=== PATIENT | male | born 1945 | race Caucasian/White ===

== ENCOUNTER 2016-05-10 09:38 | Outpatient (CLI) | payer MEDICARE, BC | END 2016-05-10 09:39 | disposition home or self-care (01) | DX: I50.9 Heart failure, unspecified (principal); I48.91 Unspecified atrial fibrillation ==

== ENCOUNTER 2016-05-25 09:20 | Outpatient (CLI) | payer MEDICARE, BC | END 2016-05-25 09:21 | disposition home or self-care (01) | DX: I50.9 Heart failure, unspecified (principal); I48.91 Unspecified atrial fibrillation ==

== ENCOUNTER 2016-06-08 09:27 | Outpatient (CLI) | payer MEDICARE, BC | END 2016-06-08 09:28 | disposition home or self-care (01) | DX: I48.91 Unspecified atrial fibrillation (principal); I50.9 Heart failure, unspecified ==

== ENCOUNTER 2018-04-16 20:52 | Outpatient (CLI) | payer MEDICARE, BC | END 2018-04-16 20:53 | disposition critical access hospital (66) | LOC: EMS 20:52 | PROVIDERS: ATTEND Surgery | DX: M25.551 Pain in right hip (principal) | CPT/HCPCS: A0425; A0427 ==

== ENCOUNTER 2018-04-16 21:15 | Emergency (ER) | payer MEDICARE, BC ==
[2018-04-16] MEDS ORDERED: KETOROLAC 60 MG/2 ML VIAL IVP STA (22:28)
--- NOTE | 2018-04-16 23:24 | XRAY Report ---
Reason: pain X 2 weeks pop today cant bear weight. Procedure Date: 04/16/2018 Accession Number: [id number] / [id number] Procedure: XR - Hip w/Pelvis 2-3V RT CPT Code: FULL RESULT: EXAM: RIGHT HIP AND PELVIS RADIOGRAPHY EXAM DATE: 04/16/2018 11:08 PM. HISTORY: Pain X 2 weeks pop today can't bear weight. COMPARISONS: None. TECHNIQUE: 1 view of the pelvis and 1 view of the hip. FINDINGS: Mild bilateral hip degenerative joint disease with acetabular osteophytes. No subluxation. Bilateral sacroiliac degenerative joint disease, left greater than right. No evidence for acute fracture. Bilateral arterial calcifications. IMPRESSION: No acute fracture or dislocation. Mild right hip degenerative joint disease. RADIA
--- NOTE | 2018-04-16 23:26 | XRAY Report ---
Reason: pain X 2 weeks pop today cant bear weight Procedure Date: 04/16/2018 Accession Number: [id number] / [id number] Procedure: XR - Femur 2V RT CPT Code: FULL RESULT: EXAM: RIGHT FEMUR RADIOGRAPHY EXAM DATE: 04/16/2018 11:08 PM. CLINICAL HISTORY: Pain X 2 weeks pop today cant bear weight. COMPARISON: HIP W/PELVIS 2-3V RT 04/16/2018 10:39 PM. TECHNIQUE: 2 views. FINDINGS: Mild right hip degenerative joint disease. Right total knee arthroplasty. No subluxation. Small knee joint effusion. No evidence for acute fracture. Arterial calcifications. IMPRESSION: Mild right hip degenerative joint disease. Right total knee arthroplasty. No subluxation. Small knee joint effusion. No evidence for acute fracture. RADIA
--- NOTE | 2018-04-16 23:29 | ED Physician Documentation ---
PD HPI LOWER EXT INJURY - Stated complaint Stated Complaint: HIP PAIN - Chief complaint Chief Complaint: Ext Problem - History obtained from History obtained from: Patient, Family - History of Present Illness PD HPI LOW EXT INJURY LOCATION: Right, Hip, Upper leg Type of injury: Other (getting into the SUV) Where injury occurred: Home Timing - onset: Today Timing - duration: Hours Timing - details: Abrupt onset, Still present Improved by: Rest, Ice, Immobilization Worsened by: Moving, Palpating Associated symptoms: No: Weakness, Numbness, Tingling, Swelling Contributing factors: Anticoagulated Similar symptoms before: Has not had sx before Recently seen: Not recently seen - Additional information Additional information: 73-year-old male is been having an issue with some pain in his right anterior thigh for the past 2 weeks. He is noted some pain every time he tries to lift up the leg and today he was getting into his SUV when he heard a snap and a pop and had severe pain that has not relented since. He is having a lot of trouble anytime he tries to flex his hip. The pain is centered across the anterior thigh and he was able to bear some weight on this to limp very slowly to get back from his SUV back into his house he did call the ambulance for transport to the hospital. Review of Systems Constitutional: denies: Fever, Chills, Myalgias Eyes: denies: Decreased vision Ears: denies: Ear pain Nose: denies: Rhinorrhea / runny nose, Congestion Throat: denies: Sore throat Cardiac: denies: Chest pain / pressure Respiratory: denies: Dyspnea, Cough GI: denies: Abdominal Pain, Nausea : denies: Dysuria, Frequency Skin: denies: Rash Musculoskeletal: reports: Extremity pain, Pain with weight bearing. denies: Neck pain, Back pain, Joint pain, Extremity swelling Neurologic: denies: Generalized weakness, Focal weakness, Numbness PD PAST MEDICAL HISTORY - Past Medical History Cardiovascular: Hypertension, Atrial fibrillation Respiratory: COPD, Sleep apnea, CPAP use Neuro: None Endocrine/Autoimmune: Type 2 diabetes GI: None : Other HEENT: None Musculoskeletal: Osteoarthritis - Present Medications Home Medications: Ambulatory Orders Medication Instructions Recorded Confirmed Carvedilol 3 mg PO DAILY 06/07/15 04/23/16 Glipizide 10 mg PO DAILY 06/07/15 04/23/16 Lisinopril 20 mg PO DAILY 06/07/15 04/23/16 Metformin HCl 500 mg PO QID 06/07/15 04/23/16 Warfarin [Coumadin] 5 mg PO DAILY 06/07/15 04/23/16 Hydrocodone/Acetaminophen [[place] 1 each PO Q6H PRN #20 tablet 04/23/16 5-325 Tablet] hydroCHLOROthiazide 12.5 mg PO DAILY 04/23/16 04/23/16 [Hydrochlorothiazide] Aspirin [Aspirin EC] 1 tab PO DAILY 04/16/18 04/16/18 Chlorhexidine Gluconate [Hibiclens] 1 oz TOP DAILY 04/16/18 04/16/18 Fluocinonide 1 oz TOP BID 04/16/18 04/16/18 Furosemide 1 tab PO DAILY 04/16/18 04/16/18 Gemfibrozil 1 tab PO BID 04/16/18 04/16/18 Insulin Glargine,Hum.rec.anlog 10 unit SQ 04/16/18 [Basaglar Kwikpen U-100] Triamterene/Hydrochlorothiazid 1 tab PO DAILY 04/16/18 04/16/18 [Triamterene-Hctz 37.5-25 mg Cp] Hydrocodone/Acetaminophen 1 - 2 each PO Q6H PRN #14 tablet 04/17/18 [Hydrocodon-Acetaminophen 5-325] - Allergies Allergies/Adverse Reactions: Allergies Allergy/AdvReac Type Severity Reaction Status Date / Time codeine Allergy Hallucinati Verified 04/16/18 21:26 ons guaifenesin AdvReac Hallucinati Verified 04/16/18 21:26 ons - Social History Does the pt smoke?: Yes Smoking Status: Current every day smoker Does the pt drink ETOH?: Yes Does the pt have substance abuse?: No - Immunizations Immunizations are current?: Yes - POLST Patient has POLST: No PD ED PE NORMAL - Vitals Vital signs reviewed: Yes (tachy and hypertensive ) - General General: Alert and oriented X 3, No acute distress, Well developed/nourished - HEENT HEENT: Atraumatic, PERRL, EOMI - Neck Neck: Supple, no meningeal sign - Respiratory Respiratory: No respiratory distress - Back Back: No CVA TTP, No spinal TTP, Other (no pain into the sciatic notch ) - Derm Derm: Normal color, Warm and dry, No rash - Extremities Extremities: No deformity, No calf tenderness / cord, Other (There is point tendeness across the anterior thigh without skin discoloration or swelling appreciated. Any movement to the thigh causes increase in pain. Knee ROM is good and causes pain to the anterior thigh. There is edema and post inflammitory hyperpigmentation to bilaterally to the lower calves. ) - Neuro Neuro: Alert and oriented X 3, cytogenetics technologist 2-12 intact, No motor deficit, No sensory deficit, Normal speech Eye Opening: Spontaneous Motor: Obeys Commands Verbal: Oriented GCS Score: 15 - Psych Psych: Normal mood, Normal affect Results - Vitals Vitals: Vital Signs - 24 hr 04/16/18 04/17/18 21:22 00:01 Temperature 36.7 C 36.5 C Heart Rate 102 H 84 Respiratory 22 24 Rate Blood Pressure 128/88 H 125/84 H O2 Saturation 99 95 Oxygen O2 Source Room air - EKG (time done) 2115 Rate: Rate (enter#) (97) Rhythm: Atrial fibrillation Compare to prior EKG: Unchanged from prior EKG (06-08-15) Computer interpretation: Agree with computer - Labs Labs: Laboratory Tests 04/16/18 04/16/18 04/16/18 23:25 23:25 23:25 WBC 6.3 RBC 4.13 L Hgb 13.1 L Hct 39.2 L MCV 95.0 H MCH 31.6 H MCHC 33.3 RDW 15.1 H Plt Count 175 MPV 8.1 Neut # (Auto) 3.4 Lymph # (Auto) 1.8 [place] # (Auto) 0.7 Eos # (Auto) 0.2 Baso # (Auto) 0.1 Absolute Nucleated RBC 0.00 Nucleated RBC % 0.1 PT INR Sodium 128 L Potassium 3.8 Chloride 95 L Carbon Dioxide 22 Anion Gap 11.0 BUN 24 H Creatinine 0.9 Estimated GFR (MDRD) 82 L Glucose 141 H Calcium 9.0 Total Bilirubin 0.6 AST 34 ALT 29 Alkaline Phosphatase 125 H Troponin I < 0.04 Total Protein 6.9 Albumin 3.7 Globulin 3.2 Albumin/Globulin Ratio 1.2 Lipase 32 04/16/18 23:25 WBC RBC Hgb Hct MCV MCH MCHC RDW Plt Count MPV Neut # (Auto) Lymph # (Auto) [place] # (Auto) Eos # (Auto) Baso # (Auto) Absolute Nucleated RBC Nucleated RBC % PT 23.7 H INR 2.1 H Sodium Potassium Chloride Carbon Dioxide Anion Gap BUN Creatinine Estimated GFR (MDRD) Glucose Calcium Total Bilirubin AST ALT Alkaline Phosphatase Troponin I Total Protein Albumin Globulin Albumin/Globulin Ratio Lipase - Rads (name of study) right femur Radiology: Prelim report reviewed (Impression: Mild hip degenerative joint disease. Right total knee arthroplasty. No subluxation. Small knee joint effusion. No evidence for fracture.), EMP read indepedently, See rad report right hip Radiology: Prelim report reviewed (Impression: No acute fracture or dislocation mild right hip degenerative joint disease.), EMP read indepedently, See rad report PD MEDICAL DECISION MAKING - ED course Complexity details: reviewed results, re-evaluated patient, considered differential, d/w patient, d/w family ED course: 73-year-old male with a 2-week history of pain in his right thigh went into his SUV today had sudden onset of severe pain felt a snap heard a snap and has not been able to bear weight on his leg adequately since. He states that over the past 2 weeks he had to lift his leg to get up to go onto the break. He has pain every time he tries to lift up his thigh. He does not recall a specific injury to the area. Here in the emergency department x-rays were obtained of the hip and femur without evidence of fracture. Blood work is obtained the patient is on Coumadin and the INR is in the therapeutic range. I suspect he has pulled a muscle in his thigh and here in the emerge department is given Toradol 30 mg intravenously and he still has significant trouble getting around so we have given him some Vicodin. Departure - Departure Disposition: 01 Home, Self Care Clinical Impression: Muscle strain of right thigh Qualifiers: Encounter type: initial encounter Qualified Code(s): S76.911A - Strain of unspecified muscles, fascia and tendons at thigh level, right thigh, initial encounter Condition: Stable Instructions: ED Strain Groin, ED Strain Muscle Ext Follow-Up: Kerry Lopez MD [Primary Care Provider] - Prescriptions: Hydrocodone/Acetaminophen [Hydrocodon-Acetaminophen 5-325] 1 - 2 each PO Q6H PRN #14 tablet PRN Reason: pain
[2018-04-16 23:34] LABS: BASOPHILS # (AUTO) 0.1 10^3/uL (0.0-0.1); BASOPHILS % (AUTO) 1.7 %; EOSINOPHILS # (AUTO) 0.2 10^3/uL (0.0-0.7); EOSINOPHILS % (AUTO) 3.3 %; HGB - HEMOGLOBIN 13.1 g/dL (14.0-18.0); LYMPHOCYTES # (AUTO) 1.8 10^3/uL (1.5-3.5); LYMPHOCYTES % (AUTO) 28.5 %; MEAN CORPUSCULAR HEMOGLOBIN 31.6 pg (27.0-31.0); MEAN CORPUSCULAR HGB CONC 33.3 g/dL (32.0-36.0); MEAN PLATELET VOLUME 8.1 fL (7.4-11.4); MONOCYTES # (AUTO) 0.7 10^3/uL (0.0-1.0); MONOCYTES % (AUTO) 11.5 %; NEUTROPHILS # (AUTO) 3.4 10^3/uL (1.5-6.6); PLT - PLATELET COUNT 175 10^3/uL (130-450); RED BLOOD COUNT 4.13 10^6/uL (4.70-6.10); RED CELL DISTRIBUTION WIDTH 15.1 % (12.0-15.0); WHITE BLOOD COUNT 6.3 x10^3/uL (4.8-10.8)
[2018-04-16 23:40] LABS: INR 2.1 (0.8-1.2); PT - PROTHROMBIN TIME 23.7 secs (9.9-12.6)
[2018-04-16 23:48] LABS: ALBUMIN 3.7 g/dL (3.2-5.5); ALBUMIN/GLOBULIN RATIO 1.2 (1.0-2.2); BILIRUBIN,TOTAL 0.6 mg/dL (0.2-1.0); CREATININE 0.9 mg/dL (0.6-1.2); TOTAL PROTEIN 6.9 g/dL (6.7-8.2)
[2018-04-17] MEDS ORDERED: HYDROcod/ACETAM 5/325 MG TABLET PO STA (00:11)
[2018-04-17] MEDS ORDERED: HYDROcod/ACET 5/325 Prepack 4 PO STA (00:53)
[2018-04-17 01:06] VITALS: BP 125/79
== END 2018-04-17 01:09 | disposition home or self-care (01) ==
LOC: EDUNIT# → ED 21:15
DX: S76.911A Strain of unspecified muscles, fascia and tendons at thigh level, right thigh, initial encounter (principal); X58.XXXA Exposure to other specified factors, initial encounter; I10 Essential (primary) hypertension; I48.91 Unspecified atrial fibrillation; E11.9 Type 2 diabetes mellitus without complications; Z79.01 Long term (current) use of anticoagulants; Z79.4 Long term (current) use of insulin; Z79.82 Long term (current) use of aspirin; F17.200 Nicotine dependence, unspecified, uncomplicated
CPT/HCPCS: 36415; 80053; 83690; 84484; 85025; 85610; 99283

== ENCOUNTER 2018-05-16 13:17 | Outpatient (CLI) | payer MEDICARE, BC ==
[2018-05-16 17:51] LABS: CALCIUM 9.5 mg/dL (8.5-10.3); CREATININE 1.2 mg/dL (0.6-1.2)
== END 2018-05-16 13:18 | disposition home or self-care (01) ==
LOC: LAB.F 13:17
PROVIDERS: ATTEND Internal Medicine Cardiovascular Disease
DX: I50.32 Chronic diastolic (congestive) heart failure (principal); I42.9 Cardiomyopathy, unspecified
CPT/HCPCS: 36415; 80048

== ENCOUNTER 2018-07-14 13:53 | Outpatient (CLI) | payer MEDICARE, BC ==
[2018-07-14 18:02] LABS: INR 3.3 (0.8-1.2)
[2018-07-14 18:07] LABS: BASOPHILS # (AUTO) 0.1 10^3/uL (0.0-0.1); BASOPHILS % (AUTO) 0.8 %; EOSINOPHILS # (AUTO) 0.3 10^3/uL (0.0-0.7); EOSINOPHILS % (AUTO) 3.8 %; HGB - HEMOGLOBIN 12.3 g/dL (14.0-18.0); LYMPHOCYTES # (AUTO) 1.6 10^3/uL (1.5-3.5); LYMPHOCYTES % (AUTO) 24.1 %; MEAN CORPUSCULAR HEMOGLOBIN 29.2 pg (27.0-31.0); MEAN CORPUSCULAR HGB CONC 32.8 g/dL (32.0-36.0); MEAN CORPUSCULAR VOLUME 88.9 fL (80.0-94.0); MEAN PLATELET VOLUME 8.7 fL (7.4-11.4); MONOCYTES # (AUTO) 0.7 10^3/uL (0.0-1.0); MONOCYTES % (AUTO) 10.4 %; NEUTROPHILS # (AUTO) 4.2 10^3/uL (1.5-6.6); NEUTROPHILS % (AUTO) 60.9 %; PLT - PLATELET COUNT 232 10^3/uL (130-450); RED BLOOD COUNT 4.21 10^6/uL (4.70-6.10); RED CELL DISTRIBUTION WIDTH 15.4 % (12.0-15.0); WHITE BLOOD COUNT 6.8 x10^3/uL (4.8-10.8)
[2018-07-14 18:17] LABS: CALCIUM 9.2 mg/dL (8.5-10.3); CREATININE 1.3 mg/dL (0.6-1.2)
== END 2018-07-14 13:54 | disposition home or self-care (01) ==
LOC: LAB.F 13:53
DX: I70.213 Atherosclerosis of native arteries of extremities with intermittent claudication, bilateral legs (principal)
CPT/HCPCS: 36415; 80048; 85025; 85610

== ENCOUNTER 2018-08-19 07:38 | Outpatient (CLI) | payer MEDICARE, BC ==
[2018-08-19 12:16] LABS: ALBUMIN 3.9 g/dL (3.2-5.5); ALBUMIN/GLOBULIN RATIO 1.1 (1.0-2.2); BILIRUBIN,TOTAL 0.6 mg/dL (0.2-1.0); CREATININE 1.1 mg/dL (0.6-1.2); TOTAL PROTEIN 7.6 g/dL (6.7-8.2)
== END 2018-08-19 07:39 | disposition home or self-care (01) ==
LOC: LAB.F 07:38
PROVIDERS: ATTEND Internal Medicine
DX: E11.621 Type 2 diabetes mellitus with foot ulcer (principal); T81.31XD Disruption of external operation (surgical) wound, not elsewhere classified, subsequent encounter; I48.91 Unspecified atrial fibrillation; I50.9 Heart failure, unspecified
CPT/HCPCS: 36415; 80053; 85610

== ENCOUNTER 2018-09-23 10:41 | Outpatient (CLI) | payer MEDICARE, BC ==
[2018-09-23 18:08] LABS: BASOPHILS # (AUTO) 0.1 10^3/uL (0.0-0.1); BASOPHILS % (AUTO) 0.5 %; EOSINOPHILS # (AUTO) 0.5 10^3/uL (0.0-0.7); EOSINOPHILS % (AUTO) 4.9 %; HGB - HEMOGLOBIN 11.1 g/dL (14.0-18.0); LYMPHOCYTES # (AUTO) 1.8 10^3/uL (1.5-3.5); MEAN CORPUSCULAR HEMOGLOBIN 29.7 pg (27.0-31.0); MEAN CORPUSCULAR HGB CONC 32.1 g/dL (32.0-36.0); MEAN CORPUSCULAR VOLUME 92.4 fL (80.0-94.0); MEAN PLATELET VOLUME 8.7 fL (7.4-11.4); MONOCYTES # (AUTO) 1.1 10^3/uL (0.0-1.0); MONOCYTES % (AUTO) 10.4 %; NEUTROPHILS # (AUTO) 7.2 10^3/uL (1.5-6.6); NEUTROPHILS % (AUTO) 67.2 %; PLT - PLATELET COUNT 238 10^3/uL (130-450); RED BLOOD COUNT 3.74 10^6/uL (4.70-6.10); RED CELL DISTRIBUTION WIDTH 16.7 % (12.0-15.0); WHITE BLOOD COUNT 10.8 x10^3/uL (4.8-10.8)
[2018-09-23 18:14] LABS: CALCIUM 9.7 mg/dL (8.5-10.3)
== END 2018-09-23 10:42 | disposition home or self-care (01) ==
LOC: LAB.F 10:41
DX: I70.213 Atherosclerosis of native arteries of extremities with intermittent claudication, bilateral legs (principal)
CPT/HCPCS: 36415; 80048; 85025; 85610

== ENCOUNTER 2018-10-24 15:08 | Outpatient (CLI) | payer MEDICARE, BC ==
[2018-10-24 17:40] LABS: CHOLESTEROL 97 mg/dL; HDL CHOLESTEROL 24 mg/dL; LDL CHOLESTEROL,CALCULATED 26 mg/dL; LDL/HDL RATIO 1.1 (<3.6); VLDL CHOLESTEROL 47 mg/dL
[2018-10-24 18:06] LABS: HB2 TOTAL 12.7 g/dL; HEMOGLOBIN A1C 0.54 g/dL
== END 2018-10-24 15:09 | disposition home or self-care (01) ==
LOC: LAB.F 15:08
PROVIDERS: ATTEND Nurse Practitioner
DX: E11.41 Type 2 diabetes mellitus with diabetic mononeuropathy (principal)
CPT/HCPCS: 36415; 80061; 83036; 83721

== ENCOUNTER 2018-11-05 00:10 | Outpatient (CLI) | payer MEDICARE, BC | END 2018-11-05 00:11 | disposition critical access hospital (66) | LOC: EMS 00:10 | PROVIDERS: ATTEND Surgery | DX: R41.82 Altered mental status, unspecified (principal); M54.2 Cervicalgia; R07.81 Pleurodynia; R73.09 Other abnormal glucose; W18.30XA Fall on same level, unspecified, initial encounter; Y92.003 Bedroom of unspecified non-institutional (private) residence as the place of occurrence of the external cause | CPT/HCPCS: A0425; A0427 ==

== ENCOUNTER 2018-11-05 00:31 | Observation (INO) | payer MEDICARE, BC ==
[2018-11-05] MEDS ORDERED: KETOROLAC 15 MG/ML VIAL IVP STA (00:43)
[2018-11-05] MEDS ORDERED: SODIUM CHLORIDE 0.9% 1,000 ML IV ONE ×2 (00:43→03:05)
--- NOTE | 2018-11-05 00:46 | ED Physician Documentation ---
PD HPI ALTERED MENTAL STATUS - Stated complaint Stated Complaint: GLF, NECK PAIN, SKIN TEAR RIGHT HAND/KNEE - History obtained from History obtained from: Patient, Family (), EMS - History of Present Illness Timing - onset: How many minutes ago (shortly GLOBAL RECRUITER), Today Timing - details: Abrupt onset (The patient states he had been having a less appetite some through the day. He was at physical therapist office earlier today and noted to have low blood pressure. He was not feeling lightheaded per se but some general weakness. He and his ate a big lunch at around 1 or 2 in the afternoon and then went down for nap. He awoke at 8 and took his usual nightly insulin but did not have any dinner. Use getting ready for bed and went and got up to go to the bathroom and then suddenly was aware of being on the floor. He did not feel lightheaded headache chest pain or belly pain ahead of that. Upon awakening needed to have pain in the right ribs back of the head and neck. His heard him fall and went in and found him unresponsive. She called EMS and they found his blood sugar to be 23. They started an IV and gave the 50 needed awaken after that. That is when he noted the pains in the head ne ck and ribs.), Now resolved Quality / character: Unresponsive Associated symptoms: General weakness, Syncope. No: Fever, Headache, Dyspnea, NVD Contributing factors: Diabetic, Recent injury (fell and hurt left back pelvix end of August). No: Recent med change, Recent illness Basline status: Alert and oriented X 3, Ambulatory Treatment GLOBAL RECRUITER: Accucheck, D50, C spine immobilization Similar symptoms before: Has not had sx before Recently seen: Not recently seen Review of Systems Constitutional: denies: Fever, Chills, Myalgias Nose: denies: Rhinorrhea / runny nose, Congestion Throat: denies: Sore throat Cardiac: denies: Chest pain / pressure, Palpitations Respiratory: denies: Dyspnea, Cough GI: denies: Abdominal Pain, Nausea (but less appetite today), Vomiting, Diarrhea, Bloody / black stool PD PAST MEDICAL HISTORY - Past Medical History Cardiovascular: Hypertension, Atrial fibrillation Respiratory: COPD, Sleep apnea, CPAP use Neuro: None Endocrine/Autoimmune: Type 2 diabetes GI: None : Other HEENT: None Musculoskeletal: Osteoarthritis - Present Medications Home Medications: Ambulatory Orders Medication Instructions Recorded Confirmed Carvedilol 12.5 mg PO BID 06/07/15 11/05/18 Glipizide 10 mg PO DAILY 06/07/15 11/05/18 Lisinopril 10 mg PO DAILY 06/07/15 11/05/18 Metformin HCl 1,000 mg PO BID 06/07/15 11/05/18 Warfarin [Coumadin] 7.5 mg PO DAILY 06/07/15 11/05/18 Chlorhexidine Gluconate [Hibiclens] 1 oz TOP DAILY 04/16/18 04/16/18 Furosemide 2 tab PO DAILY 04/16/18 11/05/18 Insulin Glargine,Hum.rec.anlog 10 unit SQ QPM 04/16/18 11/05/18 [Basaglar Kwikpen U-100] Acetaminophen 500 mg PO Q4HR PRN 11/05/18 11/05/18 - Allergies Allergies/Adverse Reactions: Allergies Allergy/AdvReac Type Severity Reaction Status Date / Time codeine Allergy Hallucinati Verified 11/05/18 00:51 ons guaifenesin AdvReac Hallucinati Verified 11/05/18 00:51 ons - Social History Does the pt smoke?: Yes Smoking Status: Current every day smoker Does the pt drink ETOH?: Yes Does the pt have substance abuse?: No - Immunizations Immunizations are current?: Yes - POLST Patient has POLST: No PD ED PE NORMAL - Vitals Vital signs reviewed: Yes (hypotensive) - General General: Alert and oriented X 3, Well developed/nourished, Other (in pain with torso movement and deep breathing; pain at right lateral ribs. ) - HEENT HEENT: Ears normal, Pharynx benign, Dentition benign, Other (back of head and mid cervical areas are tender without deformity. ) - Neck Neck: Supple, no meningeal sign - Cardiac Cardiac: No murmur. No: RRR (irregular but controlled rate. No murmur. ) - Respiratory Respiratory: Clear bilaterally, Other (right lateral chestwall tenderness without bruising, crepitance. ) - Abdomen Abdomen: Soft, Non tender - Male Male : Deferred - Rectal Rectal: Deferred - Back Back: No CVA TTP, No spinal TTP - Derm Derm: Warm and dry. No: Normal color (mild pallor) - Extremities Extremities: No tenderness to palpate, Normal ROM s pain, No edema, No calf tenderness / cord, Other (abrasion right knee; knee replacement scar noted over the knee. ) - Neuro Neuro: Alert and oriented X 3, electronic train control technician 2-12 intact, No motor deficit, No sensory deficit, Normal speech Eye Opening: Spontaneous Motor: Obeys Commands Verbal: Oriented GCS Score: 15 Results - Vitals Vitals: Vital Signs - 24 hr 11/05/18 11/05/18 11/05/18 00:31 00:59 01:00 Temperature 36.4 C L Heart Rate 101 H 115 H Respiratory 16 16 Rate Blood Pressure 87/47 L 89/58 L 93/59 L O2 Saturation 98 98 11/05/18 11/05/18 11/05/18 01:31 02:03 02:19 Temperature Heart Rate 97 110 H 103 H Respiratory 18 16 17 Rate Blood Pressure 92/63 98/54 L 98/64 O2 Saturation 98 99 100 11/05/18 11/05/18 02:51 03:03 Temperature 36.0 C L Heart Rate 98 101 H Respiratory 20 19 Rate Blood Pressure 99/70 99/70 O2 Saturation 94 100 Oxygen O2 Source Room air - Labs Labs: Laboratory Tests 11/05/18 11/05/18 11/05/18 00:55 00:55 00:55 WBC 12.1 H RBC 3.96 L Hgb 11.9 L Hct 37.3 L MCV 94.2 H MCH 30.1 MCHC 31.9 L RDW 15.7 H Plt Count 157 MPV 10.9 Neut # (Auto) 8.8 H Lymph # (Auto) 1.6 [place] # (Auto) 1.3 H Eos # (Auto) 0.2 Baso # (Auto) 0.0 Absolute Nucleated RBC 0.00 Nucleated RBC % 0.0 PT INR Sodium 137 Potassium 4.8 Chloride 107 Carbon Dioxide 18 L Anion Gap 12.0 BUN 61 H Creatinine 1.4 H Estimated GFR (MDRD) 50 L Glucose 92 Calcium 8.8 Magnesium 1.8 Total Bilirubin 0.3 AST 23 ALT 14 Alkaline Phosphatase 55 Troponin I < 0.04 Total Protein 6.7 Albumin 3.6 Globulin 3.1 Albumin/Globulin Ratio 1.2 Lipase 46 Last Dose Date Last Dose Time Digoxin 11/05/18 11/05/18 00:55 01:00 WBC RBC Hgb Hct MCV MCH MCHC RDW Plt Count MPV Neut # (Auto) Lymph # (Auto) [place] # (Auto) Eos # (Auto) Baso # (Auto) Absolute Nucleated RBC Nucleated RBC % PT 25.9 H INR 2.3 H Sodium Potassium Chloride Carbon Dioxide Anion Gap BUN Creatinine Estimated GFR (MDRD) Glucose Calcium Magnesium Total Bilirubin AST ALT Alkaline Phosphatase Troponin I Total Protein Albumin Globulin Albumin/Globulin Ratio Lipase Last Dose Date UNKNOWN Last Dose Time UNKNOWN Digoxin 0.6 PD MEDICAL DECISION MAKING - ED course Complexity details: reviewed results (His scans show a new rib fracture on the r ight seventh rib. No lung injury. The abdomen is normal. The pelvis shows a subacute left inferior and superior ramus fractures. He states he did fall in August end of August and had been having pain in the lower back on the left side and pain with walking at that time. CT of his head and neck are normal. Of concern would be his use of anticoagulants.), considered differential (Most apparent would be the low blood sugar in relation to not having eaten since 1 or 2 in the afternoon and taken his normal insulin about 8:00 this evening. He did have a syncopal episode with abrupt falling and injury. He states he felt okay prior to that which is some general weakness. Medics did find a low blood sugar initially and he improved with some IV dextrose. However he maintains a hypotensive even with some IV fluids. He reports he had been having low blood pressure all day which was unusual for him. He denies any change in medicines.), d/w patient ED course: The patient has several factors going on. He had an abrupt syncope and fall while walking to the bathroom. This seems unusual from just the low blood sugar. He had been hypotensive through the day without really any symptoms but I wonder if he had a postural hypotension and syncope associated with some blood low blood sugar and therefore was a combined effect. Alternatively could consider the physiologic stress of the low blood pressure causing an increased workload demand on the system and having the blood sugar lower and even lowered sugar because of the fainting. I think it is most likely this the blood sugar was the primary issue. He is eating food now and his blood sugar is still a little bit low at 85. This will require a little bit more watching and some more calorie intake. I still think there is an issue regarding the low blood pressure through the day and the contribution that had in the syncopal episode this evening. Of concern is the bread pressure still being under 100 after over a liter of fluid. We will give a little bit more fluid as well. He does have an acute rib fracture and will need some pain medicines for that. He has some pain in the head and neck area after falling. His CT scans are normal without bleeding. There are no signs of fractures. I asked the hospitalist to come and evaluate the patient because of the multi- factorial contributions to the current illness. I feel uncomfortable with the patient home without resolution of the blood pressure more consistently. Departure - Departure Disposition: ED Place in Observation Clinical Impression: Hypoglycemia associated with diabetes, Anticoagulant long-term use Syncope Qualifiers: Syncope type: unspecified Qualified Code(s): R55 - Syncope and collapse Hypotension Qualifiers: Hypotension type: hypotension due to drug Qualified Code(s): I95.2 - Hypotension due to drugs Rib fracture Qualifiers: Encounter type: initial encounter Rib fracture type: single rib Fracture type: closed Laterality: right Qualified Code(s): S22.31XA - Fracture of one rib, right side, initial encounter for closed fracture Head contusion Qualifiers: Encounter type: initial encounter Contusion of head detail: scalp Qualified Code(s): S00.03XA - Contusion of scalp, initial encounter Condition: Stable Record reviewed to determine appropriate education?: Yes
[2018-11-05] MEDS ORDERED: IOVERSOL 320 100 ML VIAL IVP ONE ×2 (00:55→01:40)
[2018-11-05 01:03] LABS: BASOPHILS % (AUTO) 0.2 %; EOSINOPHILS # (AUTO) 0.2 10^3/uL (0.0-0.7); EOSINOPHILS % (AUTO) 1.9 %; HGB - HEMOGLOBIN 11.9 g/dL (14.0-18.0); LYMPHOCYTES # (AUTO) 1.6 10^3/uL (1.5-3.5); LYMPHOCYTES % (AUTO) 13.5 %; MEAN CORPUSCULAR HEMOGLOBIN 30.1 pg (27.0-31.0); MEAN CORPUSCULAR HGB CONC 31.9 g/dL (32.0-36.0); MEAN CORPUSCULAR VOLUME 94.2 fL (80.0-94.0); MEAN PLATELET VOLUME 10.9 fL (7.4-11.4); MONOCYTES # (AUTO) 1.3 10^3/uL (0.0-1.0); MONOCYTES % (AUTO) 10.8 %; NEUTROPHILS # (AUTO) 8.8 10^3/uL (1.5-6.6); NEUTROPHILS % (AUTO) 72.3 %; PLT - PLATELET COUNT 157 10^3/uL (130-450); RED BLOOD COUNT 3.96 10^6/uL (4.70-6.10); RED CELL DISTRIBUTION WIDTH 15.7 % (12.0-15.0); WHITE BLOOD COUNT 12.1 x10^3/uL (4.8-10.8)
[2018-11-05 01:08] LABS: INR 2.3 (0.8-1.2); PT - PROTHROMBIN TIME 25.9 secs (9.9-12.6)
[2018-11-05 01:15] LABS: ALBUMIN 3.6 g/dL (3.2-5.5); ALBUMIN/GLOBULIN RATIO 1.2 (1.0-2.2); BILIRUBIN,TOTAL 0.3 mg/dL (0.2-1.0); CALCIUM 8.8 mg/dL (8.5-10.3); CREATININE 1.4 mg/dL (0.6-1.2); MAGNESIUM 1.8 mg/dL (1.7-2.8); TOTAL PROTEIN 6.7 g/dL (6.7-8.2)
[2018-11-05] MEDS ORDERED: DEXTROSE 50% ABBOJECT 25 GM/50 ML SYRINGE IVP STA (01:48)
--- NOTE | 2018-11-05 01:52 | CT Report ---
Reason: fall with head/neck pain; on coumadin Procedure Date: 11/05/2018 Accession Number: [id number] / [id number] Procedure: CT - HEAD WO CPT Code: FULL RESULT: EXAM: CT HEAD EXAM DATE: 11/05/2018 01:28 AM. CLINICAL HISTORY: Fall with head/neck pain; on coumadin. COMPARISON: None. TECHNIQUE: Multiaxial CT images were obtained from the foramen magnum to the vertex. Reformats: Sagittal and coronal. IV contrast: None. In accordance with CT protocol optimization, one or more of the following dose reduction techniques were utilized for this exam: automated exposure control, adjustment of mA and/or KV based on patient size, or use of iterative reconstructive technique. FINDINGS: Parenchyma: No intraparenchymal hemorrhage. No evidence of mass, midline shift, or CT findings of infarction. Romero-white differentiation is distinct. There is mild chronic microvascular change in the deep white matter. A small punctate calcification in the left paramedian shiv may represent a small cavernoma. Extraaxial Spaces: There is age-related generalized cerebral volume loss. No subdural or epidural collections identified. Ventricles: No hydrocephalus. Sinuses and Orbits: A 2.4 cm retention cyst or polyp is noted in the left inferior maxillary sinus. Sinuses and mastoid air cells are otherwise clear. Orbits are unremarkable. Bones: No evidence of fracture or calvarial defect. Other: None. IMPRESSION: 1. No acute intracranial abnormality. 2. No skull fracture. 3. Age-related generalized cerebral volume loss and mild chronic microvascular change. 4. A small punctate calcification in the left paramedian shiv is nonspecific but may represent a small cavernoma. RADIA
--- NOTE | 2018-11-05 02:06 | CT Report ---
Reason: fall with injury to right chest/abd Procedure Date: 11/05/2018 Accession Number: [id number] / [id number] Procedure: CT - Abdomen/Pelvis W CPT Code: FULL RESULT: EXAM: CT CHEST, ABDOMEN AND PELVIS EXAM DATE: 11/05/2018 01:33 AM. CLINICAL HISTORY: Fall with right-sided injury, right-sided rib and chest pain, right-sided abdominal pain. COMPARISONS: ABDOMEN/PELVIS W/ 11/05/2018 1:22 AM, CHEST 2 VIEW PA/LAT 04/23/2016 10:20 AM. TECHNIQUE: Routine helical CT imaging was performed through the chest, abdomen, and pelvis. IV contrast: 100 mL Optiray 320. Enteric contrast: No. Reconstructions: Coronal and sagittal. In accordance with CT protocol optimization, one or more of the following dose reduction techniques were utilized for this exam: automated exposure control, adjustment of mA and/or KV based on patient size, or use of iterative reconstructive technique. FINDINGS: CHEST: Lungs and Pleura: There is a small triangular anterior right upper lobe nodule (image 45 series 2), with appearance favoring that of an intrapulmonary lymph node. Remainder of the lung parenchyma is clear. There is no effusion. No definite pneumothorax. Central Airways: Saber-sheath deformity of the trachea is noted, raising the possibility of chronic obstructive pulmonary disease. Chest Wall: No significant abnormality. Thyroid: Scattered small thyroid nodules, difficult to fully characterize. Mediastinum: No pathologic lymphadenopathy demonstrated. Heart: Normal in size. No significant pericardial effusion. Severe coronary vascular calcification. Thoracic Aorta: Normal caliber. ABDOMEN: Liver: Nonspecific tiny low-density focus within the liver is noted (image 30 series 3). This is difficult to fully characterize. No acute appearing hepatic abnormality demonstrated. Stomach/Distal Esophagus: No significant abnormality. Gallbladder: No significant abnormality. Bile Ducts: No significant abnormality. Pancreas: No significant abnormality. Spleen: No significant abnormality. Kidneys: No suspicious solid appearing lesion. No hydronephrosis. Adrenals: No significant abnormality. Vasculature: Normal caliber aorta. There is severe aortic and branch vessel atherosclerosis. Notable moderate to severe stenosis of the proximal to mid SMA (image 44 series 3). Bowel: No significant abnormality. Average fecal residual. Moderate to severe pancolonic diverticulosis without definite acute diverticulitis. Appendix: Appendix is visualized without inflammatory change. Lymph Nodes: No pathologically enlarged nodes. Fluid: No significant free fluid. Abdominal Wall: No significant abnormality. Other: No significant abnormality. PELVIS: Prostate and Seminal Vesicles: No significant abnormality. Bladder: No significant abnormality. Lymph Nodes: No pathologically enlarged nodes. Fluid: No significant free fluid. Other: No significant abnormality. BONES: There is a subtle nondisplaced fracture of the anterior portion of the right seventh rib (image 61 series 2). No significant displaced rib fractures are demonstrated elsewhere. Of note, bones are moderate to severely osteopenic with reduced sensitivity and specificity as a result. There is an old healed fracture of the anterior left seventh rib (image 54 series 2). There is moderate multilevel degenerative change within the spine. Moderate to severe right shoulder degenerative change. Moderate left shoulder degenerative change. Subacute appearing fracture through the parasymphyseal portion of the left superior pubic ramus, with some surrounding periosteal reaction. There is a subtle subacute nondisplaced fracture of the left inferior pubic ramus as well (image 100 series 3). IMPRESSION: 1. There is a subtle nondisplaced fracture of the anterior portion of the right seventh rib. 2. No displaced acute appearing rib fractures are seen. There is no pneumothorax. No significant effusion. 3. Subacute fracture of the parasymphyseal left superior pubic ramus as well as a subtle nondisplaced subacute fracture of the left inferior pubic ramus. No acute appearing pelvic fracture. 4. No acute abdominal or pelvic abnormality demonstrated elsewhere. RADIA
--- NOTE | 2018-11-05 02:19 | CT Report ---
Reason: fall with neck pain Procedure Date: 11/05/2018 Accession Number: [id number] / [id number] Procedure: CT - CERVICAL SPINE WO CPT Code: FULL RESULT: EXAM: CT CERVICAL SPINE WITHOUT CONTRAST DATE: 11/05/2018 01:28 AM. HISTORY: Fall with neck pain. COMPARISONS: None. TECHNIQUE: Thin-section axial images were acquired of the cervical spine without contrast. Post-processing: Coronal and sagittal reformats. Other: None. In accordance with CT protocol optimization, one or more of the following dose reduction techniques were utilized for this exam: automated exposure control, adjustment of mA and/or KV based on patient size, or use of iterative reconstructive technique. FINDINGS: Alignment: No scoliosis or spondylolisthesis. Bones: No fracture or bone lesion. Interspace Levels/Facets: There is moderate multilevel cervical spondylosis with prominent facet hypertrophy at multiple levels. There is no high-grade central canal stenosis in the cervical spine. Uncovertebral and facet hypertrophy produces moderate to severe multilevel bilateral foraminal stenosis at the C2-C3 through C5-C6 levels. Musculature: Normal. No fatty atrophy. Other: The paravertebral and prevertebral soft tissues are unremarkable. The lung apices are clear. IMPRESSION: 1. No acute osseous abnormality of the cervical spine. No fracture or subluxation. 2. Moderate multilevel cervical spondylosis. RADIA
[2018-11-05 02:52] LABS: DIGOXIN 0.6 ng/mL
[2018-11-05] MEDS ORDERED: ACETAMINOPHEN 325 MG TABLET PO STA (03:05)
[2018-11-05] MEDS ORDERED: SODIUM CHLORIDE FLUSH 0.9% 10 ML SYRINGE IVP PRN (03:20)
[2018-11-05] MEDS ORDERED: ACETAMINOPHEN 325 MG TABLET PO PRN (03:20)
--- NOTE | 2018-11-05 03:40 | HISTORY & PHYSICAL EXAMINATION ---
Chief Complaint - Chief Complaint Chief Complaint: Syncope History of Present Illness - Admitted From Admitted From:: Home - History Obtained From Records Reviewed: Yes History obtained from: Patient, Family - History of Present Illness HPI Comment/Other: This is a 73 year old male with a past medical history significant for type 2 diabetes requiring insulin, atrial fibrillation (on coumadin), foot wound (on antibiotics) who presented from home today after having a syncopal episode. He reports feeling well prior to syncopizing. He denies chest pain, palpitations, dizziness, lightheadedness. He recalls taking his insulin yesterday without checking his blood sugar before and then he did not eat after. His spouse heard him fall and she called EMS. His blood glucose was found to be 23 at that time. He reports no prior episodes of syncope. He had a mechanical fall 6 months after he slipped on steps. He normally ambulates with a walker. He reports good appetite and hydration over the past few days. He saw his Infectious Disease doctor yesterday morning for follow up of his right foot wound for which he is currently taking Levaquin, Flagyl, and Minocycline. His blood pressure at that visit was 82/60. He reports his baseline blood pressure is around 105-110 systolic. He currently reports feeling back to his baseline. He reports no headaches, blurry vision, or focal weaknesses. In the emergency department he was treated with dextrose and his blood sugars have been stable in the 90's. He had a CT of the head, c-spine, chest/abdomen/pe lvis which was significant for a nondisplaced fracture of the right 7th rib and subacute fractures of the left superior pubic ramus and left inferior pubic ramus. Medicine was contacted for admission as patient's blood pressure remain in the 90's systolic despite IV fluids. History - Past Medical History Cardiovascular: reports: Hypertension, Atrial fibrillation Respiratory: reports: COPD, Sleep apnea, CPAP use Neuro: reports: None Endocrine/Autoimmune: reports: Type 2 diabetes GI: reports: GERD HEENT: reports: None Musculoskeletal: reports: Osteoarthritis Other Past Medical History: cardiomyopathy; Colon Adenomas; Chronic ulcer foot; Diverticulosis; Generalized edema; Gynecomastia; Prosta CA; Hyperkeratosis; Osteomylitis; PAD; Carpat Tunnel syndrome - Past Surgical History Ortho: reports: Other (Foot surgery) - Family & Social History Living arrangement: At home Living Situation: With spouse/s.o. Social History Notes: Lives with spouse at home. Ambulates with walker at baseline. Smokes half a pack per day. Minimal alcohol use. No illict drug use. - Substance History Use: Uses substance without health or social issues: Tobacco Tobacco Details: Cigarettes - POLST Patient has POLST: No Meds/Allgy - Home Medications Home Medications: Ambulatory Orders Medication Instructions Recorded Confirmed Carvedilol 12.5 mg PO BID 06/07/15 11/05/18 Glipizide 10 mg PO DAILY 06/07/15 11/05/18 Lisinopril 10 mg PO DAILY 06/07/15 11/05/18 Metformin HCl 1,000 mg PO BID 06/07/15 11/05/18 Warfarin [Coumadin] 7.5 mg PO DAILY 06/07/15 11/05/18 Chlorhexidine Gluconate [Hibiclens] 1 oz TOP DAILY 04/16/18 04/16/18 Furosemide 2 tab PO DAILY 04/16/18 11/05/18 Acetaminophen 500 mg PO Q4HR PRN 11/05/18 11/05/18 Ammonium Lactate [Lac-Hydrin Five] 113 gm TP QPM 11/05/18 11/05/18 Diclofenac Sodium/Capsaicin 11/05/18 [Capsfenac Federico] Digoxin [Lanoxin] 1 tab PO DAILY 11/05/18 11/05/18 Docusate Sodium [Dss] 1 cap PO DAILY PRN 11/05/18 11/05/18 Insulin Glargine,Hum.rec.anlog 16 units SUBQ BID 11/05/18 11/05/18 [Basaglar Kwikpen U-100] Ipratropium Linn [Atrovent Hfa] 1 puffs IH TID PRN 11/05/18 11/05/18 Levofloxacin [Levaquin] 500 mg PO 11/05/18 Metronidazole [Flagyl] 11/05/18 Pregabalin [Lyrica] 1 cap PO BID 11/05/18 11/05/18 SITagliptin [Januvia] 1 tab PO DAILY 11/05/18 11/05/18 - Allergies Allergies/Adverse Reactions: Allergies Allergy/AdvReac Type Severity Reaction Status Date / Time codeine Allergy Hallucinati Verified 11/05/18 00:51 ons guaifenesin AdvReac Hallucinati Verified 11/05/18 00:51 ons Review of Systems - Constitutional Constitutional: reports: Poor appetite. denies: Fatigue, Fever, Weakness - Cardiovascular Cariovascular: reports: Syncope. denies: Irregular heart rate, Palpitations, Chest pain, Lightheadedness - Respiratory Respiratory: denies: Cough, SOB at rest, SOB with exertion - Gastrointestinal Gastrointestinal: reports: Reflux/heartburn, Poor appetite. denies: Abdominal pain, Nausea, Vomiting - Genitourinary Genitourinary: denies: Dysuria, Frequency, Urgency - Musculoskeletal Musculoskeletal: reports: Muscle aches - Integumentary Integumentary: reports: Other (Wound on right foot. Multiple skin abrasions.) - All Other Systems All Other Systems: reports: Reviewed and negative Exam - Vital Signs Reviewed Vital Signs: Yes Vital Signs: Vital Signs x48h Temp Pulse Resp BP Pulse Ox 11/05/18 03:03 101 H 19 99/70 100 11/05/18 02:51 36.0 C L 98 20 99/70 94 11/05/18 02:19 103 H 17 98/64 100 11/05/18 02:03 110 H 16 98/54 L 99 11/05/18 01:31 97 18 92/63 98 11/05/18 01:00 115 H 16 93/59 L 98 11/05/18 00:59 89/58 L 11/05/18 00:31 36.4 C L 101 H 16 87/47 L 98 - Physical Exam General Appearance: positive: No acute distress Eyes Bilateral: positive: Normal inspection ENT: negative: Dry mucous membranes Respiratory: positive: No respiratory distress, Breath sounds nml. negative: Chest non-tender Cardiovascular: positive: No murmur, Irregularly irregular, Tachycardia Abdomen: positive: Non-tender, No distention. negative: Tenderness Skin: positive: Laceration (cm) (2cm abrasion over right knee and right hand.), Other (Small area of ecchymosis over the right side of the scalp. Right foot in walking boot.) Extremities: positive: Full ROM Neurologic/Psychiatric: positive: Oriented x3 Conclusion/Plan - Problem List (1) Syncope Conclusion/Plan: Suspect that the episode of syncope was relate to his hypoglycemia rather than of cardiac origin He is back to his baseline mental status and denies any prodromal symptoms His EKG shows atrial fibrillation with nonspecific T wave changes Blood pressure is on the lower side in the 90's but it appears his baseline is in the low 100's - Hydrate with IV fluids - Check orthostatics - Trend troponin - Monitor blood glucose - Monitor on telemetry - Will not be able to obtain and echocardiogram today as there is no oil bay technician today. The patient tells me his biology professor is planning to perform a stress test. - PT/OT Qualifiers: Syncope type: unspecified Qualified Code(s): R55 - Syncope and collapse (2) Hypoglycemia associated with diabetes Conclusion/Plan: Hypoglycemia occurred because he took his insulin prior to checking his blood sugar and then he did not have a meal after He is on insulin, metformin, Januvia at home Last A1c 10/24/18 was 6.0% which is concerning considering his age and c omorbidities - Hold insulin and his home diabetic agents - Will likely require de-escalation of his medications on discharge - CC diet - community educator (3) Head contusion Conclusion/Plan: Secondary to his syncopal episode Fortunately the CT of his head and c-spine were unremarkable - Tylenol PRN pain Qualifiers: Encounter type: initial encounter Contusion of head detail: scalp Quali fied Code(s): S00.03XA - Contusion of scalp, initial encounter (4) Hypotension Conclusion/Plan: I doubt that this is the cause of his syncope as his blood pressure is in the 90's and he reports a baseline in the 100's He does not appear septic or dehydrated on exam although his BUN and creatinine are a little elevated Received 1L of NS in the ED On Lisinopril and Coreg at home - Hold home antihypertensives at this time - Check orthostatics - Hydrate with IVF Qualifiers: Hypotension type: hypotension due to drug Qualified Code(s): I95.2 - Hypotension due to drugs (5) Atrial fibrillation Conclusion/Plan: He has persistent atrial fibrillation and is on Coumadin, Coreg, Digoxin at home Rate controlled at this time INR therapeutic although Dig level low at 0.6 - Continue Coumadin and Digoxin - INR in AM Qualifiers: Atrial fibrillation type: persistent Qualified Code(s): I48.1 - Persistent atrial fibrillation (6) Anticoagulant long-term use Conclusion/Plan: On coumadin for atrial fibrillation CT of head, C-spine, Chest/Abd/Pelvis without signs of bleed - Monitor for bleeding (7) Right foot infection Conclusion/Plan: He tells me has a chronic right foot infection for which he follows with ID at [facility] in [place] (Dr. Street) On Levaquin, Flagyl and Minocycline - Resume antibiotics - Outpatient follow up (8) Mild chronic obstructive pulmonary disease Conclusion/Plan: Stable. Does not appear in exacerbation. Saturating well on room air - Continue home medications (9) Pubic ramus fracture Conclusion/Plan: Subacute fractures based off CT of the Pelvis Ambulates with walker at home Pain controlled at this time - Tylenol PRN - PT/OT - Consider Orthopedic consult - Lab Results Lab results reviewed: Yes Fish Bones: 11/05/18 00:55 11/05/18 00:55 - Diagnostic Imaging Results Diagnostic Imaging Results: positive: Final report reviewed - EKG Results EKG Interpreted Independently: Yes EKG Comparison: No prior EKG EKG Findings: Atrial fibrillation with nonspecific T-wave changes.
[2018-11-05] MEDS ORDERED: LACTATED RINGERS 1,000 ML IV SCH (04:00)
[2018-11-05] MEDS ORDERED: IPRATROPIUM 0.2 MG/ML NEB INH PRN (04:48)
[2018-11-05] MEDS ORDERED: oxyCODONE 5 MG TABLET PO STA (05:01)
[2018-11-05] MEDS: metroNIDAZOLE 250 MG TABLET PO SCH ×3 (05:19→20:41)
[2018-11-05 06:15] LABS: INR 2.2 (0.8-1.2); PT - PROTHROMBIN TIME 24.5 secs (9.9-12.6)
[2018-11-05 06:21] LABS: CALCIUM 8.7 mg/dL (8.5-10.3); CREATININE 1.4 mg/dL (0.6-1.2)
[2018-11-05] MEDS ORDERED: SODIUM CHLORIDE 0.9% 500 ML IV ONE (07:57)
[2018-11-05] MEDS ORDERED: DEXTROSE 50% ABBOJECT 25 GM/50 ML SYRINGE ONE (08:01)
[2018-11-05] MEDS ORDERED: DEXTROSE GEL 37.5 GM TUBE ONE (08:04)
[2018-11-05] MEDS ORDERED: DEXTROSE 50% ABBOJECT 25 GM/50 ML SYRINGE IVP ONE (08:10)
[2018-11-05] MEDS ORDERED: IPRATROPIUM/ALBUTEROL 3 ML NEB INH PRN (08:19)
[2018-11-05 08:29] LABS: HB2 TOTAL 11.6 g/dL; HEMOGLOBIN A1C 0.48 g/dL; HEMOGLOBIN A1C % 5.9 % (4.6-6.2)
[2018-11-05] MEDS ORDERED: ALBUTEROL NEB 2.5 MG/3 ML INH PRN (08:30)
[2018-11-05] MEDS: levoFLOXacin 250 MG TABLET PO SCH (08:57)
[2018-11-05] MEDS: SODIUM CHLORIDE FLUSH 0.9% 10 ML SYRINGE IVP SCH ×2 (08:58→17:42)
[2018-11-05] MEDS ORDERED: DEXTROSE 5%-0.45% NACL 1,000 ML IV SCH (09:00)
[2018-11-05] MEDS: oxyCODONE 5 MG TABLET PO PRN ×2 (10:52→20:42)
[2018-11-05] MEDS: DOXYCYCLINE 100 MG TABLET PO SCH ×2 (12:06→20:41)
[2018-11-05 12:31] LABS: BASOPHILS % (AUTO) 0.2 %; EOSINOPHILS # (AUTO) 0.2 10^3/uL (0.0-0.7); EOSINOPHILS % (AUTO) 2.2 %; HGB - HEMOGLOBIN 11.5 g/dL (14.0-18.0); LYMPHOCYTES # (AUTO) 1.7 10^3/uL (1.5-3.5); LYMPHOCYTES % (AUTO) 18.4 %; MEAN CORPUSCULAR HEMOGLOBIN 30.1 pg (27.0-31.0); MEAN PLATELET VOLUME 11.1 fL (7.4-11.4); MONOCYTES # (AUTO) 0.9 10^3/uL (0.0-1.0); MONOCYTES % (AUTO) 10.3 %; NEUTROPHILS # (AUTO) 6.2 10^3/uL (1.5-6.6); PLT - PLATELET COUNT 156 10^3/uL (130-450); RED BLOOD COUNT 3.82 10^6/uL (4.70-6.10); WHITE BLOOD COUNT 9.1 x10^3/uL (4.8-10.8)
--- NOTE | 2018-11-05 16:39 | PROVIDER PROGRESS NOTE ---
Subjective - Prog Note Date Prog Note Date: 11/05/18 - Subjective Pt reports feeling: Improved Subjective: pt report he missed his dinner on last night, then he gave his insulin without checking his glucose level. He did not remember what happened to him when he had syncope. I called pt's PCP about his DM management after d/c from hospital. Dr. Kerry pope's office nurse told me, their office only prescribed Glipizid 10mg daily, Metformin 500mg bid and Lantus 16 unit bid, their office did not prescribe Glipizid 10 mg bid, did not prescribe Januvia to pt. pt got Glipizid bid and Januvia from [facility]. Dr. Lopez's office still recommend pt has Glipizid 10mg daily, Metformin 500mg bid and Lantus 16 unit bid for pt's d/c home. pt declined nurse and me to assess his foot infection at this time. he just visit his ID yesterday and will followup. he had three antibiotics prescribed by his ID Current Medications - Current Medications Current Medications: Active Medications Acetaminophen (Tylenol) 650 mg PO Q4HR PRN PRN Reason: Pain 1 to 4 Last Admin: 11/05/18 09:12 Dose: 650 mg Albuterol () 2.5 mg INH RTQ4H PRN PRN Reason: Wheezing Albuterol/Ipratropium (Duoneb) 3 ml INH RTQ4H PRN PRN Reason: Wheezing Digoxin (Lanoxin) 125 mcg PO DAILY [facility] Doxycycline Hyclate (Vibramycin) 100 mg PO BID [facility] Last Admin: 11/05/18 12:06 Dose: 100 mg Dextrose/Sodium Chloride (D5.45ns) 1,000 mls @ 83.333 mls/hr IV .Q12H [facility] Stop: 11/05/18 20:59 Last Admin: 11/05/18 08:56 Dose: 83.333 mls/hr Ipratropium Howell (Atrovent) 0.5 mg INH RTQ4H PRN PRN Reason: Dyspnea Levofloxacin (Levaquin) 750 mg PO DAILY [facility] Last Admin: 11/05/18 08:57 Dose: 750 mg Metronidazole (Flagyl) 500 mg PO Q8H [facility] Last Admin: 11/05/18 12:39 Dose: 500 mg Oxycodone HCl (Roxicodone) 5 mg PO Q4HR PRN PRN Reason: PAIN Last Admin: 11/05/18 10:52 Dose: 5 mg Pregabalin (Lyrica) 75 mg PO BID [facility] Ranitidine HCl (Zantac) 150 mg PO DAILY [facility] Last Admin: 11/05/18 08:57 Dose: 150 mg Sodium Chloride (Normal Saline Flush 0.9%) 10 ml IVP PRN PRN PRN Reason: NEEDED PER PROVIDER ORDERS Sodium Chloride (Normal Saline Flush 0.9%) 10 ml IVP 0100,0900,1700 [facility] Last Admin: 11/05/18 08:58 Dose: Not Given Warfarin Sodium (Coumadin) 7.5 mg PO DAILY [facility] Carvedilol 12.5 mg PO BID 06/07/15 Glipizide 10 mg PO DAILY 06/07/15 Lisinopril 10 mg PO DAILY 06/07/15 Metformin HCl 500 mg PO BID 06/07/15 Warfarin [Coumadin] 7.5 mg PO DAILY 06/07/15 Chlorhexidine Gluconate [Hibiclens] 1 oz TOP DAILY 04/16/18 Furosemide 20 mg PO DAILY 04/16/18 Acetaminophen 500 mg PO Q4HR PRN 11/05/18 Digoxin [Lanoxin] 125 mcg PO DAILY 11/05/18 Insulin Glargine [Lantus Solostar] 16 units SUBQ BID 11/05/18 Levofloxacin [Levaquin] 500 mg PO DAILY 11/05/18 Metronidazole [Flagyl] 500 mg PO TID 11/05/18 Pregabalin [Lyrica] 75 mg PO BID 11/05/18 SITagliptin [Januvia] 1 tab PO DAILY 11/05/18 Objective - Vital Signs/Intake & Output Reviewed Vital Signs: Yes Vital Signs: Vital Signs x48h Temp Pulse Pulse Pulse Pulse Pulse Pulse 11/05/18 15:50 36.5 C 91 11/05/18 15:20 105 H 92 11/05/18 14:47 36.6 C 90 11/05/18 12:14 89 11/05/18 11:00 66 70 Pulse Resp BP BP BP BP BP 11/05/18 15:50 24 94/71 11/05/18 15:20 105/57 L 113/87 H 11/05/18 14:47 18 111/60 11/05/18 12:14 20 11/05/18 11:00 103 H 112/69 105/56 L BP Pulse Ox 11/05/18 15:50 98 11/05/18 15:20 11/05/18 14:47 94 11/05/18 12:14 11/05/18 11:00 115/65 Intake & Output: Intake & Output 11/02/18 11/03/18 11/04/18 11/05/18 23:59 23:59 23:59 23:59 Intake Total 3073 Balance 3073 - Objective General Appearance: positive: No acute distress, Alert. negative: Lethargic Eyes Bilateral: positive: Normal inspection, PERRL, No lid inflammation, Conjunctivae nml ENT: positive: ENT inspection nml, Pharynx nml, No signs of dehydration. negative: Purulent nasal drainage, Pharyngeal erythema, Oral lesions Neck: positive: Nml inspection, Thyroid nml, No JVD, Trachea midline. negative: Thyromegaly, Lymphadenopathy (R), Lymphadenopathy (L), Stiff neck, Swelling/bruising, Tracheal deviation Respiratory: positive: Chest non-tender, No respiratory distress, Breath sounds nml. negative: Wheezes, Rales, Rhonchi Cardiovascular: positive: Regular rate & rhythm, No murmur, No gallop. negative: Irregularly irregular, Extrasystoles, Tachycardia, Bradycardia, JVD present, Systolic murmur, Diastolic murmur Peripheral Pulses: 2+ Radial (R), 2+ Radial (L), 2+ Dorsalis pedis (R), 2+ Dorsalis pedis (L) Abdomen: positive: Non-tender, No organomegaly, Nml bowel sounds, No distention. negative: Tenderness, Guarding, Rebound Back: positive: Nml inspection. negative: CVA tenderness (R), CVA tenderness (L) Skin: positive: Warm, Dry. negative: Cyanosis, Diaphoresis, Pallor Extremities: negative: Calf tenderness, Tristin's sign/cords Neurologic/Psychiatric: positive: Oriented x3, Sensation nml. negative: Weakness, Sensory loss, Facial droop, Slurred/abnml speech, Depressed mood/affect - Lab Results Fish Bones: 11/05/18 12:25 11/05/18 05:28 Other Labs: Lab Results x24hrs 11/05/18 11/05/18 11/05/18 Range/Units 12:25 05:28 05:28 WBC 9.1 (4.8-10.8) x10^3/uL RBC 3.82 L (4.70-6.10) 10^6/uL Hgb 11.5 L (14.0-18.0) g/dL Hct 35.9 L (42.0-52.0) % MCV 94.0 (80.0-94.0) fL MCH 30.1 (27.0-31.0) pg MCHC 32.0 (32.0-36.0) g/dL RDW 16.0 H (12.0-15.0) % Plt Count 156 (130-450) 10^3/uL MPV 11.1 (7.4-11.4) fL Neut # (Auto) 6.2 (1.5-6.6) 10^3/uL Lymph # (Auto) 1.7 (1.5-3.5) 10^3/uL [place] # (Auto) 0.9 (0.0-1.0) 10^3/uL Eos # (Auto) 0.2 (0.0-0.7) 10^3/uL Baso # (Auto) 0.0 (0.0-0.1) 10^3/uL Absolute Nucleated RBC 0.00 x10^3/uL Nucleated RBC % 0.0 /100WBC PT 24.5 H (9.9-12.6) secs INR 2.2 H (0.8-1.2) Sodium (135-145) mmol/L Potassium (3.5-5.0) mmol/L Chloride (101-111) mmol/L Carbon Dioxide (21-32) mmol/L Anion Gap (6-13) BUN (6-20) mg/dL Creatinine (0.6-1.2) mg/dL Estimated GFR (MDRD) (>89) Glucose (70-100) mg/dL Glycated Hemoglobin 5.9 (4.6-6.2) % Estim Average Glucose 123 H (70-100) Calcium (8.5-10.3) mg/dL Magnesium (1.7-2.8) mg/dL Total Bilirubin (0.2-1.0) mg/dL AST (10-42) IU/L ALT (10-60) IU/L Alkaline Phosphatase (42-121) IU/L Troponin I (<0.49) ng/mL Total Protein (6.7-8.2) g/dL Albumin (3.2-5.5) g/dL Globulin (2.1-4.2) g/dL Albumin/Globulin Ratio (1.0-2.2) Lipase (22-51) U/L Last Dose Date Last Dose Time Digoxin ng/mL 11/05/18 11/05/18 11/05/18 Range/Units 05:28 05:28 01:00 WBC (4.8-10.8) x10^3/uL RBC (4.70-6.10) 10^6/uL Hgb (14.0-18.0) g/dL Hct (42.0-52.0) % MCV (80.0-94.0) fL MCH (27.0-31.0) pg MCHC (32.0-36.0) g/dL RDW (12.0-15.0) % Plt Count (130-450) 10^3/uL MPV (7.4-11.4) fL Neut # (Auto) (1.5-6.6) 10^3/uL Lymph # (Auto) (1.5-3.5) 10^3/uL [place]yer # (Auto) (0.0-1.0) 10^3/uL Eos # (Auto) (0.0-0.7) 10^3/uL Baso # (Auto) (0.0-0.1) 10^3/uL Absolute Nucleated RBC x10^3/uL Nucleated RBC % /100WBC PT (9.9-12.6) secs INR (0.8-1.2) Sodium 138 (135-145) mmol/L Potassium 4.9 (3.5-5.0) mmol/L Chloride 109 (101-111) mmol/L Carbon Dioxide 16 L (21-32) mmol/L Anion Gap 13.0 (6-13) BUN 58 H (6-20) mg/dL Creatinine 1.4 H (0.6-1.2) mg/dL Estimated GFR (MDRD) 50 L (>89) Glucose 71 (70-100) mg/dL Glycated Hemoglobin (4.6-6.2) % Estim Average Glucose (70-100) Calcium 8.7 (8.5-10.3) mg/dL Magnesium (1.7-2.8) mg/dL Total Bilirubin (0.2-1.0) mg/dL AST (10-42) IU/L ALT (10-60) IU/L Alkaline Phosphatase (42-121) IU/L Troponin I < 0.04 (<0.49) ng/mL Total Protein (6.7-8.2) g/dL Albumin (3.2-5.5) g/dL Globulin (2.1-4.2) g/dL Albumin/Globulin Ratio (1.0-2.2) Lipase (22-51) U/L Last Dose Date UNKNOWN Last Dose Time UNKNOWN Digoxin 0.6 ng/mL 11/05/18 11/05/18 11/05/18 Range/Units 00:55 00:55 00:55 WBC (4.8-10.8) x10^3/uL RBC (4.70-6.10) 10^6/uL Hgb (14.0-18.0) g/dL Hct (42.0-52.0) % MCV (80.0-94.0) fL MCH (27.0-31.0) pg MCHC (32.0-36.0) g/dL RDW (12.0-15.0) % Plt Count (130-450) 10^3/uL MPV (7.4-11.4) fL Neut # (Auto) (1.5-6.6) 10^3/uL Lymph # (Auto) (1.5-3.5) 10^3/uL [place] # (Auto) (0.0-1.0) 10^3/uL Eos # (Auto) (0.0-0.7) 10^3/uL Baso # (Auto) (0.0-0.1) 10^3/uL Absolute Nucleated RBC x10^3/uL Nucleated RBC % /100WBC PT 25.9 H (9.9-12.6) secs INR 2.3 H (0.8-1.2) Sodium 137 (135-145) mmol/L Potassium 4.8 (3.5-5.0) mmol/L Chloride 107 (101-111) mmol/L Carbon Dioxide 18 L (21-32) mmol/L Anion Gap 12.0 (6-13) BUN 61 H (6-20) mg/dL Creatinine 1.4 H (0.6-1.2) mg/dL Estimated GFR (MDRD) 50 L (>89) Glucose 92 (70-100) mg/dL Glycated Hemoglobin (4.6-6.2) % Estim Average Glucose (70-100) Calcium 8.8 (8.5-10.3) mg/dL Magnesium 1.8 (1.7-2.8) mg/dL Total Bilirubin 0.3 (0.2-1.0) mg/dL AST 23 (10-42) IU/L ALT 14 (10-60) IU/L Alkaline Phosphatase 55 (42-121) IU/L Troponin I < 0.04 (<0.49) ng/mL Total Protein 6.7 (6.7-8.2) g/dL Albumin 3.6 (3.2-5.5) g/dL Globulin 3.1 (2.1-4.2) g/dL Albumin/Globulin Ratio 1.2 (1.0-2.2) Lipase 46 (22-51) U/L Last Dose Date Last Dose Time Digoxin ng/mL 11/05/18 Range/Units 00:55 WBC 12.1 H (4.8-10.8) x10^3/uL RBC 3.96 L (4.70-6.10) 10^6/uL Hgb 11.9 L (14.0-18.0) g/dL Hct 37.3 L (42.0-52.0) % MCV 94.2 H (80.0-94.0) fL MCH 30.1 (27.0-31.0) pg MCHC 31.9 L (32.0-36.0) g/dL RDW 15.7 H (12.0-15.0) % Plt Count 157 (130-450) 10^3/uL MPV 10.9 (7.4-11.4) fL Neut # (Auto) 8.8 H (1.5-6.6) 10^3/uL Lymph # (Auto) 1.6 (1.5-3.5) 10^3/uL [place]yer # (Auto) 1.3 H (0.0-1.0) 10^3/uL Eos # (Auto) 0.2 (0.0-0.7) 10^3/uL Baso # (Auto) 0.0 (0.0-0.1) 10^3/uL Absolute Nucleated RBC 0.00 x10^3/uL Nucleated RBC % 0.0 /100WBC PT (9.9-12.6) secs INR (0.8-1.2) Sodium (135-145) mmol/L Potassium (3.5-5.0) mmol/L Chloride (101-111) mmol/L Carbon Dioxide (21-32) mmol/L Anion Gap (6-13) BUN (6-20) mg/dL Creatinine (0.6-1.2) mg/dL Estimated GFR (MDRD) (>89) Glucose (70-100) mg/dL Glycated Hemoglobin (4.6-6.2) % Estim Average Glucose (70-100) Calcium (8.5-10.3) mg/dL Magnesium (1.7-2.8) mg/dL Total Bilirubin (0.2-1.0) mg/dL AST (10-42) IU/L ALT (10-60) IU/L Alkaline Phosphatase (42-121) IU/L Troponin I (<0.49) ng/mL Total Protein (6.7-8.2) g/dL Albumin (3.2-5.5) g/dL Globulin (2.1-4.2) g/dL Albumin/Globulin Ratio (1.0-2.2) Lipase (22-51) U/L Last Dose Date Last Dose Time Digoxin ng/mL ABX Reporting Has patient been on IV antibiotics over the past 48 hours?: Yes Sepsis Event Note (H) - Evaluation Current Stage of Sepsis: Ruled out Assessment/Plan - Problem List (1) Syncope Impression: Suspect syncope was relate to his hypoglycemia His EKG shows atrial fibrillation with nonspecific T wave changes with coumadin Blood pressure is on the lower side in the 90's but it appears as his baseline is in the low 100's pt has no ECHO in the chart, pt has hx of afib, order ECHO on tomorrow continue ACHS to monitor glucose level called pt's PCP for d/c DM management plan continue tele and vital monitor d/c orthostatic check, it seem pt did not present orthostatic, is not the cause for syncope (2) Hypoglycemia associated with diabetes Conclusion/Plan: now his glucose is 123, continue ACHS monitor pt order [employer] marine electrician helper, she came to see pt and discussed with pt for future prevention of hypoglycemia (3) Head contusion CT of his head and c-spine were unremarkable, no complaint on today continue Tylenol PRN pain (4) Hypotension Conclusion/Plan: it likely pt has low borderline of BP. pt is asymptomatic Hold home antihypertensives at this time (5) Atrial fibrillation Conclusion/Plan: HR is controlled. Continue Coumadin and Digoxin INR in AM (6) Anticoagulant long-term use Conclusion/Plan: therapeutic INR now, contine On coumadin for atrial fibrillation CT of head, C-spine, Chest/Abd/Pelvis without signs of bleed - Monitor for bleeding (7) Right foot infection Conclusion/Plan: pt has no fever, chill. WBC is down to normal. pt declined me and nurse to assess his foot infection, he state he will followup his ID continue his home antibiotics (8) Mild chronic obstructive pulmonary disease Conclusion/Plan: Stable. Does not appear in exacerbation. Saturating well on room air - Continue home medications (9) fall with acute rib fracture, and previous Pubic ramus fracture Conclusion/Plan: CT of head, C-spine, Chest/Abd/Pelvis without signs of bleed and reveals 7th rib at right with acute fracture, likely from yesterday fall. pain control reconcile home oxycodone and Tylenol PRN continue PT/OT Qualifiers: Syncope type: unspecified Qualified Code(s): R55 - Syncope and collapse
[2018-11-05] MEDS: DIGOXIN 125 MCG TABLET PO SCH (18:14)
[2018-11-05] MEDS: PREGABALIN 25 MG CAPSULE PO SCH (20:46)
[2018-11-06] MEDS: SODIUM CHLORIDE FLUSH 0.9% 10 ML SYRINGE IVP SCH ×3 (00:51→15:59)
[2018-11-06] MEDS: oxyCODONE 5 MG TABLET PO PRN ×3 (00:56→20:28)
[2018-11-06] MEDS: metroNIDAZOLE 250 MG TABLET PO SCH ×3 (04:27→20:27)
[2018-11-06 05:37] LABS: BASOPHILS % (AUTO) 0.3 %; EOSINOPHILS # (AUTO) 0.3 10^3/uL (0.0-0.7); EOSINOPHILS % (AUTO) 3.1 %; HGB - HEMOGLOBIN 11.3 g/dL (14.0-18.0); LYMPHOCYTES # (AUTO) 1.8 10^3/uL (1.5-3.5); LYMPHOCYTES % (AUTO) 17.3 %; MEAN CORPUSCULAR HEMOGLOBIN 30.1 pg (27.0-31.0); MEAN CORPUSCULAR HGB CONC 32.4 g/dL (32.0-36.0); MEAN CORPUSCULAR VOLUME 93.1 fL (80.0-94.0); MEAN PLATELET VOLUME 10.7 fL (7.4-11.4); MONOCYTES # (AUTO) 1.3 10^3/uL (0.0-1.0); NEUTROPHILS # (AUTO) 6.8 10^3/uL (1.5-6.6); NEUTROPHILS % (AUTO) 65.7 %; PLT - PLATELET COUNT 148 10^3/uL (130-450); RED BLOOD COUNT 3.75 10^6/uL (4.70-6.10); RED CELL DISTRIBUTION WIDTH 15.7 % (12.0-15.0); WHITE BLOOD COUNT 10.3 x10^3/uL (4.8-10.8)
[2018-11-06 05:42] LABS: CALCIUM 9.2 mg/dL (8.5-10.3); CREATININE 0.8 mg/dL (0.6-1.2)
[2018-11-06 05:53] LABS: INR 2.1 (0.8-1.2); PT - PROTHROMBIN TIME 23.7 secs (9.9-12.6)
[2018-11-06] MEDS ORDERED: METOPROLOL 5 MG/5 ML VIAL IVP PRN (07:46)
[2018-11-06] MEDS: DIGOXIN 125 MCG TABLET PO SCH (08:53)
[2018-11-06] MEDS: CARVEDILOL 12.5 MG TABLET PO SCH ×2 (08:54→20:27)
[2018-11-06] MEDS: levoFLOXacin 250 MG TABLET PO SCH (08:54)
[2018-11-06] MEDS: PREGABALIN 25 MG CAPSULE PO SCH ×2 (08:54→20:27)
[2018-11-06] MEDS: DOXYCYCLINE 100 MG TABLET PO SCH ×2 (08:54→20:27)
[2018-11-06] MEDS ORDERED: FUROSEMIDE 20 MG TABLET PO SCH (09:00)
[2018-11-06] MEDS ORDERED: DIGOXIN 125 MCG TABLET PO SCH (09:00)
[2018-11-06] MEDS ORDERED: LISINOPRIL 5 MG TABLET PO SCH (09:00)
[2018-11-06] MEDS ORDERED: METOPROLOL SUCCINATE 25 MG TABLET PO SCH (09:00)
[2018-11-06] MEDS ORDERED: WARFARIN 5 MG TABLET PO SCH (09:00)
--- NOTE | 2018-11-06 10:29 | ADVANCE CARE PLANNING NOTE ---
Advance Care Planning - Date/Time Date: 11/06/18 Time: 15:55 - Purpose of encounter Text: advance care plan - Parties in attendance Parties in attendance: pt and me - Decisional capacity Decisional capacity of: pt is alert and oriented to self, location and time. he has full capacity to make his own decision. - Subjective/Patient's story Subjective/Patient's story: pt recognize his multiple complicated medical problem include uncontrolled DM2 with hypoglycemia severe, heart failure with hypotension, retirement diabetes foot infection and plan to amputation if treatment continue failure. He followup his ID doctor in . pt has uncontrolled heart rate with afib, for which he usually take Digoxin and Metoprolol to control, heart failure. but at this point, he want to have full code for himself - Objective/Medical story Objective/Medical Story: pt report he is Living with spouse at home. Ambulates with walker at baseline. he still had Smoking half a pack per day, with Minimal alcohol use, no interested at illict drug use. - Goals of Care Goals of care determinations: continue full code status, but will consider other advance care plan in the future. - Plan Plan: continue full code status - Code Status Code Status: Attempt Resuscitation - Time Spent on Advance Care Planning Time spent on advance care plannin
[2018-11-06] MEDS: SACCHAROMYCES BOULARDII 250 MG CAPSULE PO SCH ×2 (12:57→15:59)
[2018-11-06] MEDS ORDERED: SODIUM CHLORIDE 0.9% 500 ML IV ONE (14:10)
--- NOTE | 2018-11-06 15:28 | PROVIDER PROGRESS NOTE ---
Subjective - Subjective Pt reports feeling: No change Subjective: pt's HR is over 170 at the morning but pt is asymptomatic, he denies shortness of breath, palpitations, diaphoresis, chest pain. pt is reconcile to his home beta-block but now his SBP is down to 86, although pt does not present dizziness or presycope. pt report his usually SBP is around 100 Current Medications - Current Medications Current Medications: Active Medications Acetaminophen (Tylenol) 650 mg PO Q4HR PRN PRN Reason: Pain 1 to 4 Last Admin: 11/05/18 09:12 Dose: 650 mg Albuterol () 2.5 mg INH RTQ4H PRN PRN Reason: Wheezing Albuterol/Ipratropium (Duoneb) 3 ml INH RTQ4H PRN PRN Reason: Wheezing Carvedilol (Coreg) 12.5 mg PO BID [facility] Last Admin: 11/06/18 08:54 Dose: 12.5 mg Digoxin (Lanoxin) 125 mcg PO DAILY [facility] Last Admin: 11/06/18 08:53 Dose: 125 mcg Doxycycline Hyclate (Vibramycin) 100 mg PO BID [facility] Last Admin: 11/06/18 08:54 Dose: 100 mg Levofloxacin (Levaquin) 750 mg PO DAILY [facility] Last Admin: 11/06/18 08:54 Dose: 750 mg Metoprolol Tartrate (Lopressor Inj) 5 mg IVP Q6H PRN PRN Reason: Hypertensive Emergency Last Admin: 11/06/18 10:14 Dose: 5 mg Metronidazole (Flagyl) 500 mg PO Q8H [facility] Last Admin: 11/06/18 12:57 Dose: 500 mg Oxycodone HCl (Roxicodone) 5 mg PO Q4HR PRN PRN Reason: PAIN Last Admin: 11/06/18 08:56 Dose: 5 mg Pregabalin (Lyrica) 75 mg PO BID [facility] Last Admin: 11/06/18 08:54 Dose: 75 mg Ranitidine HCl (Zantac) 150 mg PO DAILY [facility] Last Admin: 11/06/18 08:54 Dose: 150 mg Saccharomyces Boulardii (Florastor) 250 mg PO BIDWM [facility] Last Admin: 11/06/18 12:57 Dose: 250 mg Sodium Chloride (Normal Saline Flush 0.9%) 10 ml IVP PRN PRN PRN Reason: NEEDED PER PROVIDER ORDERS Sodium Chloride (Normal Saline Flush 0.9%) 10 ml IVP 0100,0900,1700 [facility] Last Admin: 11/06/18 08:55 Dose: 10 ml Warfarin Sodium (Coumadin) 5 mg PO [id number] [facility] Last Admin: 11/06/18 08:56 Dose: 5 mg Carvedilol 12.5 mg PO BID 06/07/15 Glipizide 10 mg PO DAILY 06/07/15 Lisinopril 10 mg PO DAILY 06/07/15 Metformin HCl 500 mg PO BID 06/07/15 Warfarin [Coumadin] 5 mg PO [id number]@0900 06/07/15 Chlorhexidine Gluconate [Hibiclens] 1 oz TOP DAILY 04/16/18 Furosemide 20 mg PO DAILY 04/16/18 Acetaminophen 500 mg PO Q4HR PRN 11/05/18 Digoxin [Lanoxin] 125 mcg PO DAILY 11/05/18 Insulin Glargine,Hum.rec.anlog [Basaglar Kwikpen U-100] 16 units SUBQ BID 11/05/18 Levofloxacin [Levaquin] 500 mg PO DAILY 11/05/18 Metronidazole [Flagyl] 500 mg PO TID 11/05/18 Pregabalin [Lyrica] 75 mg PO BID 11/05/18 SITagliptin [Januvia] 1 tab PO DAILY 11/05/18 Objective - Vital Signs/Intake & Output Vital Signs: Vital Signs x48h Temp Pulse Pulse Resp BP BP BP 11/06/18 13:56 37.1 C 106 H 97 H 86/50 L 11/06/18 12:53 90/68 11/06/18 12:04 108 H 101/47 L 11/06/18 11:55 36.5 C 73 16 91/50 L 11/06/18 11:40 108 H 85/47 L 11/06/18 11:25 99 97/58 L 11/06/18 11:10 116 H 97/58 L 11/06/18 10:56 120 H 85/51 L 11/06/18 10:51 106 H 95/57 L 11/06/18 10:45 107 H 88/58 L 11/06/18 10:44 88/58 L 11/06/18 10:39 73 93/52 L 11/06/18 10:14 131/72 H 11/06/18 10:13 128 H 131/72 H 11/06/18 08:15 84 18 11/06/18 08:00 36.5 C 72 16 123/60 Pulse Ox 11/06/18 13:56 11/06/18 12:53 11/06/18 12:04 11/06/18 11:55 96 11/06/18 11:40 11/06/18 11:25 11/06/18 11:10 11/06/18 10:56 11/06/18 10:51 11/06/18 10:45 11/06/18 10:44 11/06/18 10:39 11/06/18 10:14 11/06/18 10:13 11/06/18 08:15 11/06/18 08:00 99 Intake & Output: Intake & Output 11/03/18 11/04/18 11/05/18 11/06/18 23:59 23:59 23:59 23:59 Intake Total 4511 1100 Balance 4511 1100 - Objective General Appearance: positive: No acute distress, Alert. negative: Lethargic Eyes Bilateral: positive: Normal inspection, PERRL, No lid inflammation, Conjunctivae nml ENT: positive: ENT inspection nml, Pharynx nml, No signs of dehydration. negative: Purulent nasal drainage, Pharyngeal erythema, Oral lesions Neck: positive: Nml inspection, Thyroid nml, No JVD, Trachea midline. negative: Thyromegaly, Lymphadenopathy (R), Lymphadenopathy (L), Stiff neck, Swelling/bruising, Tracheal deviation Respiratory: positive: Chest non-tender, No respiratory distress, Breath sounds nml. negative: Wheezes, Rales, Rhonchi Cardiovascular: positive: Regular rate & rhythm, No murmur, No gallop. negative: Irregularly irregular, Extrasystoles, Tachycardia, Bradycardia, JVD present, Systolic murmur, Diastolic murmur Peripheral Pulses: 2+ Radial (R), 2+ Radial (L), 2+ Dorsalis pedis (R), 2+ Dorsalis pedis (L) Abdomen: positive: Non-tender, No organomegaly, Nml bowel sounds, No distention. negative: Tenderness, Guarding, Rebound Back: positive: Nml inspection. negative: CVA tenderness (R), CVA tenderness (L) Skin: positive: Warm, Dry. negative: Cyanosis, Diaphoresis, Pallor Extremities: negative: Calf tenderness, Tristin's sign/cords Neurologic/Psychiatric: positive: Oriented x3, Sensation nml, Mood/affect nml. negative: Weakness, Sensory loss, Facial droop, Slurred/abnml speech, Depressed mood/affect - Lab Results Fish Bones: 11/06/18 05:20 11/06/18 05:20 Other Labs: Lab Results x24hrs 11/06/18 11/06/18 11/06/18 Range/Units 05:20 05:20 05:20 WBC 10.3 (4.8-10.8) x10^3/uL RBC 3.75 L (4.70-6.10) 10^6/uL Hgb 11.3 L (14.0-18.0) g/dL Hct 34.9 L (42.0-52.0) % MCV 93.1 (80.0-94.0) fL MCH 30.1 (27.0-31.0) pg MCHC 32.4 (32.0-36.0) g/dL RDW 15.7 H (12.0-15.0) % Plt Count 148 (130-450) 10^3/uL MPV 10.7 (7.4-11.4) fL Neut # (Auto) 6.8 H (1.5-6.6) 10^3/uL Lymph # (Auto) 1.8 (1.5-3.5) 10^3/uL [place] # (Auto) 1.3 H (0.0-1.0) 10^3/uL Eos # (Auto) 0.3 (0.0-0.7) 10^3/uL Baso # (Auto) 0.0 (0.0-0.1) 10^3/uL Absolute Nucleated RBC 0.00 x10^3/uL Nucleated RBC % 0.0 /100WBC PT 23.7 H (9.9-12.6) secs INR 2.1 H (0.8-1.2) Sodium 143 (135-145) mmol/L Potassium 5.2 H (3.5-5.0) mmol/L Chloride 112 H (101-111) mmol/L Carbon Dioxide 20 L (21-32) mmol/L Anion Gap 11.0 (6-13) BUN 28 H (6-20) mg/dL Creatinine 0.8 (0.6-1.2) mg/dL Estimated GFR (MDRD) 94 (>89) Glucose 71 (70-100) mg/dL Calcium 9.2 (8.5-10.3) mg/dL ABX Reporting Has patient been on IV antibiotics over the past 48 hours?: Yes Sepsis Event Note (H) - Evaluation Current Stage of Sepsis: Ruled out Assessment/Plan - Problem List (1) Syncope Impression: 11/06 resolved. pt has no pre-syncope or syncope at hospital pt's hypoglycemia problem is resolved Suspect syncope was relate to his hypoglycemia His EKG shows atrial fibrillation with nonspecific T wave changes with coumadin Blood pressure is on the lower side in the 90's but it appears as his baseline is in the low 100's pt has no ECHO in the chart, pt has hx of afib, order ECHO on tomorrow continue ACHS to monitor glucose level called pt's PCP for d/c DM management plan continue tele and vital monitor d/c orthostatic check, it seem pt did not present orthostatic, is not the cause for syncope (2) Hypoglycemia associated with diabetes Conclusion/Plan: 11/06 resolved, pt's glucose is 131 in the morning. I called pt's PCP for pt's DM2 management. Also DM educator at [facility] [place] [facility] went to see pt and educated pt for future prevention of hypoglycemia. pt state he understood and will followup the instruction. now his glucose is 123, continue ACHS monitor pt order [facility] [place] assistant health educator, she came to see pt and discussed with pt for future prevention of hypoglycemia (3) Head contusion CT of his head and c-spine were unremarkable, no complaint on today continue Tylenol PRN pain (4) Hypotension Conclusion/Plan: 11/06, after reconcile pt's home beta-diana and his home BP meds, pt present low BP again at SBP 86, but pt is asymptomatic. Hold Lisinopril and Lasix vital closely monitor it likely pt has low borderline of BP. pt is asymptomatic Hold home antihypertensives at this time (5) Atrial fibrillation with RVR Conclusion/Plan: 11/06 pt's HR was running over 170 but pt is asymptomatic. after treatment, pt's HR is down to 100 reconcile home Coreg, and Metoprolol IV PRN tele and vital monitor continue Coumadin continue PT/INR monitor HR is controlled. Continue Coumadin and Digoxin INR in AM (6) Anticoagulant long-term use Conclusion/Plan: therapeutic INR now, contine On coumadin for atrial fibrillation CT of head, C-spine, Chest/Abd/Pelvis without signs of bleed - Monitor for bleeding (7) Right foot infection Conclusion/Plan: pt has no fever, chill. WBC is down to normal. pt declined me and nurse to assess his foot infection, he state he will followup his ID continue his home antibiotics (8) Mild chronic obstructive pulmonary disease Conclusion/Plan: Stable. Does not appear in exacerbation. Saturating well on room air - Continue home medications (9) fall with acute rib fracture, and previous Pubic ramus fracture Conclusion/Plan: 11/06 continue incentive spirometer continue pain control continue PT/OT CT of head, C-spine, Chest/Abd/Pelvis without signs of bleed and reveals 7th rib at right with acute fracture, likely from yesterday fall. pain control reconcile home oxycodone and Tylenol PRN continue PT/OT (10) both systolic and diastolic heart failure today ECHO reveals pt has 50-55% EF and with abnormal diastolic pressure. hold Lisinopril and Lasix now, continue Coreg precaution of fluid overload Qualifiers: Syncope type: unspecified Qualified Code(s): R55 - Syncope and collapse
[2018-11-06] MEDS ORDERED: MIDODRINE 2.5 MG TABLET PO PRN (18:49)
[2018-11-07] MEDS: SODIUM CHLORIDE FLUSH 0.9% 10 ML SYRINGE IVP SCH ×2 (04:56→07:55)
[2018-11-07] MEDS: metroNIDAZOLE 250 MG TABLET PO SCH ×2 (05:00→12:26)
[2018-11-07 05:47] LABS: BASOPHILS % (AUTO) 0.2 %; EOSINOPHILS # (AUTO) 0.6 10^3/uL (0.0-0.7); EOSINOPHILS % (AUTO) 6.4 %; HGB - HEMOGLOBIN 10.9 g/dL (14.0-18.0); LYMPHOCYTES % (AUTO) 20.7 %; MEAN CORPUSCULAR HEMOGLOBIN 30.6 pg (27.0-31.0); MEAN CORPUSCULAR HGB CONC 33.1 g/dL (32.0-36.0); MEAN CORPUSCULAR VOLUME 92.4 fL (80.0-94.0); MEAN PLATELET VOLUME 11.2 fL (7.4-11.4); MONOCYTES # (AUTO) 1.3 10^3/uL (0.0-1.0); MONOCYTES % (AUTO) 13.4 %; NEUTROPHILS # (AUTO) 5.6 10^3/uL (1.5-6.6); NEUTROPHILS % (AUTO) 58.9 %; PLT - PLATELET COUNT 140 10^3/uL (130-450); RED BLOOD COUNT 3.56 10^6/uL (4.70-6.10); RED CELL DISTRIBUTION WIDTH 15.6 % (12.0-15.0); WHITE BLOOD COUNT 9.6 x10^3/uL (4.8-10.8)
[2018-11-07 05:50] LABS: INR 1.8 (0.8-1.2); PT - PROTHROMBIN TIME 20.7 secs (9.9-12.6)
[2018-11-07 05:54] LABS: CALCIUM 8.9 mg/dL (8.5-10.3); CREATININE 0.7 mg/dL (0.6-1.2)
[2018-11-07] MEDS: CARVEDILOL 12.5 MG TABLET PO SCH (07:55)
[2018-11-07] MEDS: DOXYCYCLINE 100 MG TABLET PO SCH (07:55)
[2018-11-07] MEDS: levoFLOXacin 250 MG TABLET PO SCH (07:55)
[2018-11-07] MEDS: SACCHAROMYCES BOULARDII 250 MG CAPSULE PO SCH (07:55)
[2018-11-07] MEDS: DIGOXIN 125 MCG TABLET PO SCH (07:55)
[2018-11-07] MEDS: PREGABALIN 25 MG CAPSULE PO SCH (07:55)
--- NOTE | 2018-11-07 10:56 | Discharge Plan ---
Discharge Plan Problem Reviewed?: Yes Disposition: Home, Self Care Condition: Poor Prescriptions: Lisinopril 2.5 mg PO DAILY #10 tablet Saccharomyces Boulardii [Florastor] 250 mg PO DAILY #10 capsule Diet: Diabetic Activity Restrictions: Activity as Tolerated Shower Restrictions: No (fall precaution) Instruction Topics: Hypoglycemia, Hypotension Dc, Atrial Fibrillation Health Concerns: hypoglycemia, hypotension, Afib with RVR, diabete foot infection Plan of Treatment: Your A1C is 5.9 now. we did not give you any diabetes medications or insulin to you at the hospital, your glucose level is under control. Your glipizide and insulin are hold now for your severe hypoglycemia at the admission, please followup your PCP continue manage your diabetes. Decreased Lisinopril dosage to 2.5mg daily for your hypotension, please followup your PCP continue manage your diabetes. Your HR is controlled now you decline our care to your foot, please followup your ID Care Goals: stabilization of your medical conditions Assessment: assessment as the above. Additional Instructions or Follow Up instructions: you may followup your PCP in one week, followup your ID as your schedule. Should your symptoms return or worsen, you may present ER, call 911 or your PCP for help. Follow-Up Care: [facility] - Diabetes Ed No Smoking: If you smoke, Please STOP! Call for help. Follow-up with: Kerry Lopez MD [Primary Care Provider] -
--- NOTE | 2018-11-07 11:12 | DISCHARGE SUMMARY ---
Discharge Summary Discharge Date: 11/07/18 Discharging Provider: PRIETO Primary Care Provider: Kerry Mtz Condition at Discharge: Poor Discharge Disposition: 01 Home, Self Care Discharge Facility Name: home - DIAGNOSES Admission Diagnoses: (1) Syncope (2) Hypoglycemia associated with diabetes (3) Head contusion (4) Hypotension (5) Atrial fibrillation (6) Anticoagulant long-term use (7) Right foot infection (8) Mild chronic obstructive pulmonary disease (9) Pubic ramus fracture Discharge Diagnoses with Status of Each Condition: (1) Syncope resolved. it appear relative to hypoglycemia. pt's glucose is 23 at the admission. ECHO reveals pt has 50-55% EF and with abnormal diastolic pressure (2) Hypoglycemia associated with diabetes pt is stable, with glucose level at 130-150 level. pt is educated by me, nurse and DM educate how to prevent hyperglycemia. pt verbally state to me he understand. pt's Glipizide and insulin is hold now. since pt has A1C 5.9. we did not schedule any DM treatment for pt, pt's glucose level is below 150 in the hospital. followup PCP (3) Head contusion stable, CT of head is unremarkable. No pain is reported. (4) Hypotension Conclusion/Plan: resolved. pt's Lisinopril dosage is reduced to 2.5 mg (5) Atrial fibrillation with RVR pt has stable HR with home regimen, continue home regimen, followup PCP (6) Anticoagulant long-term use continue home Coumadin, followup PCP for management (7) Right foot infection pt decline our service to his wound/infection. 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 pt is stable. pt decline home health (10) both systolic and diastolic heart failure ECHO reveals pt has 50-55% EF and with abnormal diastolic pressure. Lisinopril is reduced dosage to 2.5 mg, continue Lasix and continue Coreg - HPI History of Present Illness: refer from Dr. champagne's HPI on 11/05/18 This is a 73 year old male with a past medical history significant for type 2 diabetes requiring insulin, atrial fibrillation (on coumadin), foot wound (on antibiotics) who presented from home today after having a syncopal episode. He reports feeling well prior to syncopizing. He denies chest pain, palpitations, dizziness, lightheadedness. He recalls taking his insulin yesterday without checking his blood sugar before and then he did not eat after. His spouse heard him fall and she called EMS. His blood glucose was found to be 23 at that time. He reports no prior episodes of syncope. He had a mechanical fall 6 months after he slipped on steps. He normally ambulates with a walker. He reports good appetite and hydration over the past few days. He saw his Infectious Disease doctor yesterday morning for follow up of his right foot wound for which he is currently taking Levaquin, Flagyl, and Minocycline. His blood pressure at that visit was 82/60. He reports his baseline blood pressure is around 105-110 systolic. He currently reports feeling back to his baseline. He reports no headaches, blurry vision, or focal weaknesses. In the emergency department he was treated with dextrose and his blood sugars have been stable in the 90's. He had a CT of the head, c-spine, chest/abdomen/pelvis which was significant for a nondisplaced fracture of the right 7th rib and subacute fractures of the left superior pubic ramus and left inferior pubic ramus. Medicine was contacted for admission as patient's blood pressure remain in the 90's systolic despite IV fluids. - HOSPITAL COURSE Hospital Course: pt was admitted syncope with fall. pt then was found to have hypoglycemia at 23 glucose level. he report he did not eat dinner and shoot with insulin without check glucose level. Pt then was found to have hypotension, and afib with RVR. pt has hx of Afib and took Coumadin. pt was also found to have DM right foot infection. after treatment pt's hypoglycemia was resolved. pt's Glipizide and h ome insulin were hold, explained as the d/c diagnosis. Lisinopril's dosage is reduced to 2.5 mg daily for his hypotension. Afib with RVR is controlled after reconcile of his home meds. pt declined our service for his foot infection, pt state he will followup his ID and his do dress change for his wound. - ALLERGIES Allergies/Adverse Reactions: Allergies Allergy/AdvReac Type Severity Reaction Status Date / Time guaifenesin AdvReac Hallucinati Verified 11/05/18 00:51 ons - MEDICATIONS Home Medications: Ambulatory Orders Medication Instructions Recorded Confirmed Carvedilol 12.5 mg PO BID 06/07/15 11/05/18 Metformin HCl 500 mg PO BID 06/07/15 11/05/18 Warfarin [Coumadin] 5 mg PO SUTUWETHSA@0900 06/07/15 11/05/18 Chlorhexidine Gluconate [Hibiclens] 1 oz TOP DAILY 04/16/18 04/16/18 Furosemide 20 mg PO DAILY 04/16/18 11/05/18 Acetaminophen 500 mg PO Q4HR PRN 11/05/18 11/05/18 Digoxin [Lanoxin] 125 mcg PO DAILY 11/05/18 11/05/18 Levofloxacin [Levaquin] 500 mg PO DAILY 11/05/18 11/05/18 Metronidazole [Flagyl] 500 mg PO TID 11/05/18 11/05/18 Pregabalin [Lyrica] 75 mg PO BID 11/05/18 11/05/18 SITagliptin [Januvia] 1 tab PO DAILY 11/05/18 11/05/18 Lisinopril 2.5 mg PO DAILY #10 tablet 11/07/18 Saccharomyces Boulardii [Florastor] 250 mg PO DAILY #10 capsule 11/07/18 - PHYSICAL EXAM AT DISCHARGE General Appearance: positive: No acute distress, Alert. negative: Lethargic Eyes Bilateral: positive: Normal inspection, PERRL, No lid inflammation, Conjunctivae nml ENT: positive: ENT inspection nml, Pharynx nml, No signs of dehydration. negative: Purulent nasal drainage, Pharyngeal erythema, Oral lesions Neck: positive: Nml inspection, Thyroid nml, No JVD, Trachea midline. negative: Thyromegaly, Lymphadenopathy (R), Lymphadenopathy (L), Stiff neck, Swelling/bruising, Tracheal deviation Respiratory: positive: Chest non-tender, No respiratory distress, Breath sounds nml. negative: Wheezes, Rales, Rhonchi Cardiovascular: positive: Regular rate & rhythm, No murmur, No gallop. neg ative: Irregularly irregular, Extrasystoles, Tachycardia, Bradycardia, JVD present, Systolic murmur, Diastolic murmur Peripheral Pulses: positive: 2+ Abdomen: positive: Non-tender, No organomegaly, Nml bowel sounds. negative: No distention, Tenderness, Guarding, Rebound Back: positive: Nml inspection. negative: CVA tenderness (R), CVA tenderness (L) Skin: positive: Warm, Dry. negative: Cyanosis, Diaphoresis, Pallor Extremities: positive: Non-tender, Nml appearance. negative: Calf tenderness, Tristin's sign/cords Neurologic/Psychiatric: positive: Oriented x3, Mood/affect nml. negative: Weakness, Sensory loss, Facial droop, Slurred/abnml speech, Depressed mood/affect - LABS Result Diagrams: 11/07/18 05:20 11/07/18 05:20 - SEPSIS Current Stage of Sepsis: Ruled out - FOLLOW UP Follow Up: Your A1C is 5.9 now. we did not give you any diabetes medications or insulin to you at the hospital, your glucose level is under control. Your glipizide and insulin are hold now for your severe hypoglycemia at the admission, please followup your PCP continue manage your diabetes. Decreased Lisinopril dosage to 2.5mg daily for your hypotension, please followup your PCP continue manage your diabetes. Your HR is controlled now. should your symptoms return or worsen, you may present ER, call 911 for help - TIME SPENT Time Spent in Discharge (Minutes): 60
[2018-11-07 11:15] VITALS: BP 102/67
== END 2018-11-07 12:53 | disposition home or self-care (01) ==
LOC: EDUNIT# → ED 00:31 → MS2 03:20
PROVIDERS: ADMIT Internal Medicine; ATTEND Nurse Practitioner Gerontology
DX: E11.649 Type 2 diabetes mellitus with hypoglycemia without coma (principal); T38.3X5A Adverse effect of insulin and oral hypoglycemic [antidiabetic] drugs, initial encounter; R55 Syncope and collapse; I95.2 Hypotension due to drugs; S22.31XA Fracture of one rib, right side, initial encounter for closed fracture; S32.592D Other specified fracture of left pubis, subsequent encounter for fracture with routine healing; S00.03XA Contusion of scalp, initial encounter; S80.211A Abrasion, right knee, initial encounter; S60.511A Abrasion of right hand, initial encounter; W18.30XA Fall on same level, unspecified, initial encounter; Y92.003 Bedroom of unspecified non-institutional (private) residence as the place of occurrence of the external cause; I48.1 Persistent atrial fibrillation; I11.0 Hypertensive heart disease with heart failure; I50.40 Unspecified combined systolic (congestive) and diastolic (congestive) heart failure; J44.9 Chronic obstructive pulmonary disease, unspecified; G47.30 Sleep apnea, unspecified; E11.628 Type 2 diabetes mellitus with other skin complications; L08.9 Local infection of the skin and subcutaneous tissue, unspecified; E11.51 Type 2 diabetes mellitus with diabetic peripheral angiopathy without gangrene; F17.210 Nicotine dependence, cigarettes, uncomplicated; R63.0 Anorexia; Z79.899 Other long term (current) drug therapy; Z79.4 Long term (current) use of insulin; Z79.01 Long term (current) use of anticoagulants; Z96.651 Presence of right artificial knee joint; Z91.81 History of falling
CPT/HCPCS: 36415; 70450; 71260; 72125; 74177; 80048; 80053; 80162; 83036; 83690; 83735; 84484; 85025; 85610; 93005; 93306; 96361; 96374; 96375; 97161; 97167; 97535; 99284; 99285; A9270; G0378; J7120; Q9967

== ENCOUNTER 2019-05-26 15:03 | Outpatient (CLI) | payer MEDICARE, BC ==
[2019-05-26 18:05] LABS: HB2 TOTAL 13.6 g/dL; HEMOGLOBIN A1C 0.76 g/dL; HEMOGLOBIN A1C % 7.3 % (4.6-6.2)
== END 2019-05-26 15:04 | disposition home or self-care (01) ==
LOC: LAB.S 15:03
PROVIDERS: ATTEND Nurse Practitioner
DX: E11.8 Type 2 diabetes mellitus with unspecified complications (principal)
CPT/HCPCS: 36415; 83036

== ENCOUNTER 2019-07-14 10:37 | Outpatient (CLI) | payer MEDICARE, BC ==
[2019-07-14 17:02] LABS: BASOPHILS % (AUTO) 0.6 %; EOSINOPHILS # (AUTO) 0.1 10^3/uL (0.0-0.7); HGB - HEMOGLOBIN 12.3 g/dL (14.0-18.0); LYMPHOCYTES # (AUTO) 2.7 10^3/uL (1.5-3.5); LYMPHOCYTES % (AUTO) 38.4 %; MEAN CORPUSCULAR HEMOGLOBIN 28.9 pg (27.0-31.0); MEAN CORPUSCULAR HGB CONC 31.1 g/dL (32.0-36.0); MEAN CORPUSCULAR VOLUME 93.2 fL (80.0-94.0); MEAN PLATELET VOLUME 10.4 fL (7.4-11.4); MONOCYTES # (AUTO) 0.9 10^3/uL (0.0-1.0); MONOCYTES % (AUTO) 12.3 %; NEUTROPHILS # (AUTO) 3.3 10^3/uL (1.5-6.6); NEUTROPHILS % (AUTO) 46.3 %; PLT - PLATELET COUNT 204 10^3/uL (130-450); RED BLOOD COUNT 4.25 10^6/uL (4.70-6.10); WHITE BLOOD COUNT 7.1 x10^3/uL (4.8-10.8)
== END 2019-07-14 10:38 | disposition home or self-care (01) ==
LOC: LAB.S 10:37
PROVIDERS: ATTEND Surgery Vascular Surgery
DX: I70.213 Atherosclerosis of native arteries of extremities with intermittent claudication, bilateral legs (principal)
CPT/HCPCS: 36415; 80048; 85025

== ENCOUNTER 2021-01-06 08:00 | Outpatient (CLI) | payer MEDICARE, BC ==
--- NOTE | 2021-01-06 14:53 | XRAY Report ---
PROCEDURE: Finger(s) LT INDICATIONS: laceration w/o FB of left middle finger w/o damage to nail TECHNIQUE: AP hand, 3 views of the third finger(s) acquired. COMPARISON: None FINDINGS: Bones: No fractures or dislocations. No suspicious bony lesions. Soft tissues: No suspicious soft tissue calcifications. No radiopaque foreign body. IMPRESSION: No visualized acute fracture or dislocation. However, occult injury cannot be excluded. Recommend [facility] rt interval imaging follow-up in 7-10 days as clinically indicated for additional evaluation. Reviewed by: Armida Patton MD on 01/06/2021 2:51 PM PDT Approved by: Armida Patton MD on 01/06/2021 2:51 PM PDT Station ID: [id number]
== END 2021-01-06 23:59 | disposition home or self-care (01) ==
LOC: DI.S 08:00
PROVIDERS: ATTEND Nurse Practitioner
DX: S61.213A Laceration without foreign body of left middle finger without damage to nail, initial encounter (principal)

== ENCOUNTER 2021-03-28 08:00 | Outpatient (CLI) | payer MEDICARE, BC | END 2021-03-28 23:59 | LOC: LAB.S 08:00 | PROVIDERS: ATTEND Physician Assistant Medical | DX: R05.9 Cough, unspecified (principal); B97.89 Other viral agents as the cause of diseases classified elsewhere; Z20.822 Contact with and (suspected) exposure to COVID-19 ==

== ENCOUNTER 2022-06-05 09:55 | Observation (INO) | payer MEDICARE, BC ==
--- OUTSIDE RECORDS SUMMARY | 2022-06-05 10:21 | EXTERNAL MEDICAL SUMMARY RPT | Continuity of Care Document ---
:1945 Author Organization [facility] Address [address] [place] [address] Phone Care Team Providers Name Role Phone Unavailable Unavailable Unavailable Souleymane Patient Registrar, Macarena Unavailable Unav ailable Daniele Thomas, Sejal Unavailable Unavailable Jules, Provider Unavailable Unavailable Allergies and Intolerances date description facility type (no date) METFORMIN HCL [facility] ncillary (unknown) Services Sonny Encounters No information. Functional Status No information. Immunizations No information. Medications date description facility 2022-05-28 00:00 insulin glargine [facility] 2022-05-30 00:00 insulin glargine [facility] 2022-05-25 00:00 apixaban [facility] 2022-05-28 00:00 apixaban [facility] 2022-05-30 00:00 apixaban [facility] 2022-05-28 00:00 apixaban [facility] 2022-05-30 00:00 apixaban [facility] braxtonludin 2022-05-25 00:00 glyburide [facility] braxtonludin 2022-05-28 00:00 glyburide [facility] 2022-05-30 00:00 glyburide [facility] braxtonludin 2022-05-28 00:00 furosemide [facility] 2022-05-30 00:00 furosemide [facility] 2022-05-28 00:00 capsaicin [facility] 2022-05-30 00:00 capsaicin [facility] 2022-05-28 00:00 lisinopril [facility] 2022-05-30 00:00 lisinopril [facility] 2022-05-25 00:00 lisinopril [facility] 2022-05-28 00:00 lisinopril [facility] 2022-05-30 00:00 lisinopril [facility] 2022-05-28 00:00 glipizide [facility] 2022-05-30 00:00 glipizide [facility] [place] [facility] 2022-05-28 00:00 ipratropium bromide Walk[facility]In Clinic [facility] 2022-05-30 00:00 ipratropium bromide Walk[facility]In Clinic [facility] noland 2022-05-25 00:00 amoxicillin-pot clavulanate Walk-In Cl in [facility] 2022-05-25 00:00 amoxicillin-pot clavulanate Walk[facility]In [facility] in [facility] 2022-05-25 00:00 amoxicillin-pot clavulanate Walk[facility]In Cl in [facility] 2022-05-25 00:00 amoxicillin-pot clavulanate Walk[facility]In [facility] 2022-05-28 00:00 pen needle, diabetic [facility] 2022-05-30 00:00 pen needle, diabetic [facility] 2022-05-25 00:00 ASPIRIN [facility] 2022-05-28 00:00 ASPIRIN [facility] 2022-05-30 00:00 ASPIRIN [facility] 2022-05-28 00:00 nystatin-triamcinolone [facility] 2022-05-30 00:00 nystatin-triamcinolone [facility] n[facility] 2022-05-28 00:00 melatonin [facility] 2022-05-30 00:00 melatonin [facility] 2022-05-25 00:00 apixaban [facility] n[facility] 2022-05-28 00:00 apixaban [facility] nol[facility] 2022-05-30 00:00 apixaban [facility] n[facility] 2022-05-28 00:00 apixaban [facility] n[facility] 2022-05-30 00:00 apixaban [facility] n[facility] 2022-05-28 00:00 nystatin-triamcinolone [facility] 2022-05-30 00:00 nystatin-triamcinolone [facility] n[facility] 2022-05-25 00:00 gemfibrozil [facility] 2022-05-28 00:00 gemfibrozil [facility] 2022-05-30 00:00 gemfibrozil [facility] n[facility] 2022-05-28 00:00 sulfamethoxazole-trimethoprim [facility] n[facility] 2022-05-30 00:00 sulfamethoxazole-trimethoprim [facility] nol[facility] 2022-05-25 00:00 apixaban [facility] n[facility] 2022-05-28 00:00 apixaban [facility] nol[facility] 2022-05-30 00:00 apixaban [facility] 2022-05-28 00:00 melatonin [facility] 2022-05-30 00:00 melatonin [facility] 2022-05-28 00:00 insulin glargine [facility] 2022-05-30 00:00 insulin glargine [facility] 2022-05-28 00:00 apixaban [facility] nol[facility] 2022-05-30 00:00 apixaban [facility] 2022-05-28 00:00 insulin glargine [facility] nol[facility] 2022-05-30 00:00 insulin glargine [facility] nol[facility] 2022-05-28 00:00 digoxin [facility] noland 2022-05-30 00:00 digoxin [facility] nol[facility] 2022-05-25 00:00 lisinopril [facility] nol[facility] 2022-05-28 00:00 lisinopril [facility] nol[facility] 2022-05-30 00:00 lisinopril [facility] noland 2022-05-28 00:00 sulfamethoxazole-trimethoprim [facility] nol[facility] 2022-05-30 00:00 sulfamethoxazole-trimethoprim [facility] nol[facility] 2022-05-28 00:00 acetaminophen [facility] nol[facility] 2022-05-30 00:00 acetaminophen [facility] noland 2022-05-28 00:00 capsaicin [facility] nol[facility] 2022-05-30 00:00 capsaicin [facility] 2022-05-28 00:00 pen needle, diabetic [facility] 2022-05-30 00:00 pen needle, diabetic [facility] 2022-05-28 00:00 carvedilol [facility] nol[facility] 2022-05-30 00:00 carvedilol [facility] 2022-05-28 00:00 diclofenac sodium [facility] 2022-05-30 00:00 diclofenac sodium [facility] 2022-05-25 00:00 pioglitazone [facility] nol[facility] 2022-05-28 00:00 pioglitazone [facility] n[facility] 2022-05-30 00:00 pioglitazone [facility] nol[facility] 2022-05-28 00:00 insulin glargine [facility] nol[facility] 2022-05-30 00:00 insulin glargine [facility] nol[facility] 2022-05-28 00:00 glipizide [facility] noland 2022-05-30 00:00 glipizide [facility] nol[facility] 2022-05-25 00:00 glyburide [facility] 2022-05-28 00:00 glyburide [facility] nol[facility] 2022-05-30 00:00 glyburide [facility] nol[facility] 2022-05-25 00:00 metformin [facility] nol[facility] 2022-05-28 00:00 metformin [facility] noland 2022-05-30 00:00 metformin [facility] 2022-05-25 00:00 pioglitazone [facility] 2022-05-28 00:00 pioglitazone [facility] 2022-05-30 00:00 pioglitazone [facility] 2022-05-25 00:00 lisinopril [facility] 2022-05-28 00:00 lisinopril [facility] 2022-05-30 00:00 lisinopril [facility] 2022-05-28 00:00 lisinopril [facility] 2022-05-30 00:00 lisinopril [facility] nol[facility] 2022-05-28 00:00 acetaminophen [facility] 2022-05-30 00:00 acetaminophen [facility] 2022-05-25 00:00 metformin [facility] noland 2022-05-28 00:00 metformin [facility] 2022-05-30 00:00 metformin [facility] 2022-05-25 00:00 ASPIRIN [facility] 2022-05-28 00:00 ASPIRIN [facility] 2022-05-30 00:00 ASPIRIN [facility] 2022-05-28 00:00 furosemide [facility] 2022-05-30 00:00 furosemide [facility] 2022-05-25 00:00 gemfibrozil [facility] noland 2022-05-28 00:00 gemfibrozil [facility] 2022-05-30 00:00 gemfibrozil [facility] C [facility] 2022-05-25 00:00 glyburide [facility] 2022-05-28 00:00 glyburide [facility] 2022-05-30 00:00 glyburide [facility] 2022-05-28 00:00 lisinopril [facility] 2022-05-30 00:00 lisinopril [facility] 2022-05-28 00:00 digoxin [facility] 2022-05-30 00:00 digoxin [facility] noland 2022-05-28 00:00 glipizide [facility] 2022-05-30 00:00 glipizide [facility] 2022-05-28 00:00 sulfamethoxazole-trimethoprim [facility] nol[facility] 2022-05-30 00:00 sulfamethoxazole-trimethoprim [facility] noland 2022-05-28 00:00 carvedilol [facility] 2022-05-30 00:00 carvedilol [facility] 2022-05-28 00:00 lisinopril [facility] 2022-05-30 00:00 lisinopril [facility] 2022-05-25 00:00 lisinopril [facility] 2022-05-28 00:00 lisinopril [facility] 2022-05-30 00:00 lisinopril [facility] 2022-05-28 00:00 furosemide [facility] 2022-05-30 00:00 furosemide [facility] 2022-05-25 00:00 ASPIRIN [facility] 2022-05-28 00:00 ASPIRIN [facility] 2022-05-30 00:00 ASPIRIN [facility] 2022-05-28 00:00 capsaicin [facility] 2022-05-30 00:00 capsaicin [facility] 2022-05-25 00:00 gemfibrozil [facility] 2022-05-28 00:00 gemfibrozil [facility] 2022-05-30 00:00 gemfibrozil [facility] 2022-05-28 00:00 carvedilol [facility] 2022-05-30 00:00 carvedilol [facility] 2022-05-28 00:00 ipratropium bromide Walk[facility]In Clinic [facility] C [facility] 2022-05-30 00:00 ipratropium bromide Walk[facility]In [facility] C [facility] 2022-05-28 00:00 acetaminophen [facility] 2022-05-30 00:00 acetaminophen [facility] 2022-05-28 00:00 pregabalin [facility] 2022-05-30 00:00 pregabalin [facility] 2022-05-28 00:00 nystatin-triamcinolone [facility] nol[facility] 2022-05-30 00:00 nystatin-triamcinolone [facility] noland 2022-05-28 00:00 sulfamethoxazole-trimethoprim [facility] 2022-05-30 00:00 sulfamethoxazole-trimethoprim [facility] noland 2022-05-25 00:00 amoxicillin-pot clavulanate Walk-In Cl [facility] 2022-05-25 00:00 amoxicillin-pot clavulanate Walk[facility]In Cl [facility] C [facility] 2022-05-25 00:00 metformin [facility] noland 2022-05-28 00:00 metformin [facility] 2022-05-30 00:00 metformin [facility] nol[facility] 2022-05-28 00:00 digoxin [facility] n[facility] 2022-05-30 00:00 digoxin [facility] nol[facility] 2022-05-25 00:00 pioglitazone [facility] nol[facility] 2022-05-28 00:00 pioglitazone [facility] 2022-05-30 00:00 pioglitazone [facility] nol[facility] 2022-05-25 00:00 ASPIRIN [facility] nol[facility] 2022-05-28 00:00 ASPIRIN [facility] 2022-05-30 00:00 ASPIRIN [facility] n[facility] 2022-05-28 00:00 acetaminophen [facility] 2022-05-30 00:00 acetaminophen [facility] n[facility] 2022-05-25 00:00 pioglitazone [facility] n[facility] 2022-05-28 00:00 pioglitazone [facility] 2022-05-30 00:00 pioglitazone [facility] 2022-05-28 00:00 diclofenac sodium [facility] 2022-05-30 00:00 diclofenac sodium [facility] 2022-05-28 00:00 digoxin [facility] 2022-05-30 00:00 digoxin [facility] 2022-05-28 00:00 carvedilol [facility] 2022-05-30 00:00 carvedilol [facility] C [facility] 2022-05-28 00:00 pregabalin [facility] 2022-05-30 00:00 pregabalin [facility] noland 2022-05-28 00:00 pregabalin [facility] 2022-05-30 00:00 pregabalin [facility] nol[facility] 2022-05-25 00:00 amoxicillin-pot clavulanate Walk[facility]In Cl in [facility] noland 2022-05-25 00:00 amoxicillin-pot clavulanate Walk[facility]In Cl in [facility] noland 2022-05-25 00:00 apixaban [facility] 2022-05-28 00:00 apixaban [facility] 2022-05-30 00:00 apixaban [facility] nol[facility] 2022-05-28 00:00 apixaban [facility] 2022-05-30 00:00 apixaban [facility] Rajni noalnd 2022-05-28 00:00 ipratropium bromide Walk[facility]In Clinic [facility] C [facility] 2022-05-30 00:00 ipratropium bromide Walk[facility]In [facility] C [facility] 2022-05-28 00:00 glipizide [facility] 2022-05-30 00:00 glipizide [facility] 2022-05-28 00:00 diclofenac sodium [facility] 2022-05-30 00:00 diclofenac sodium [facility] 2022-05-25 00:00 metformin [facility] 2022-05-28 00:00 metformin [facility] 2022-05-30 00:00 metformin [facility] 2022-05-28 00:00 furosemide [facility] nol[facility] 2022-05-30 00:00 furosemide [facility] 2022-05-28 00:00 nystatin-triamcinolone Walk[facility] noland 2022-05-30 00:00 nystatin-triamcinolone Walk[facility]In [facility] noland 2022-05-28 00:00 diclofenac sodium [facility] noland 2022-05-30 00:00 diclofenac sodium [facility] noland 2022-05-25 00:00 gemfibrozil [facility] noland 2022-05-28 00:00 gemfibrozil [facility] noland 2022-05-30 00:00 gemfibrozil [facility] nol[facility] 2022-05-28 00:00 capsaicin [facility] noland 2022-05-30 00:00 capsaicin [facility] noland 2022-05-25 00:00 glyburide [facility] braxtonludin 2022-05-28 00:00 glyburide [facility] noland 2022-05-30 00:00 glyburide [facility] noland 2022-05-28 00:00 ipratropium bromide Walk[facility]In Clinic [facility] Rajni noland 2022-05-30 00:00 ipratropium bromide Walk[facility]In [facility] Rajni braxtonludin 2022-05-28 00:00 melatonin [facility] noland 2022-05-30 00:00 melatonin [facility] nol[facility] 2022-05-28 00:00 pregabalin [facility] nol[facility] 2022-05-30 00:00 pregabalin [facility] nol[facility] 2022-05-28 00:00 pen needle, diabetic [facility] noland 2022-05-30 00:00 pen needle, diabetic [facility] noland Problems date description facility 2022-05-25 00:00 Tobacco user [facility] noland 2022-05-25 00:00 Diabetes mellitus without mention of Wa lk-In Clinic Primary [facility] & complication, type II or unspecified Anc illary Services Sonny type, not stated as uncontrolled 2022-05-25 00:00 Other and unspecified Walk-In Clinic P [facility] Care & hyperlipidemia Ancillary Services Rajni noland 2022-05-25 00:00 Tobacco use disorder Walk-In [facility] Rajni noland 2022-05-25 00:00 Raised prostate specific antigen Walk- In [facility]ni noland 2022-05-25 00:00 Adenocarcinoma of prostate Walk-In Cl [facility] Rajni noland 2022-05-25 00:00 Benign essential hypertension Walk[facility]In [facility] Rajni noland 2022-05-25 00:00 Obesity [facility]ni noland 2022-05-25 00:00 Hyperlipidemia [facility] noland 2022-05-25 00:00 Cellulitis of heel [facility] noland 2022-05-25 00:00 Cellulitis of heel [facility] noland 2022-05-25 00:00 Cellulitis and abscess of foot, Walk-I n Clinic Primary Care & except toes Ancillary Services Rajni noland 2022-05-25 00:00 Cellulitis and abscess of foot, Walk-I n Clinic [facility] & except toes [facility]illary Services Rajni noland 2022-05-25 00:00 Diabetes mellitus [facility]ni noland 2022-05-25 00:00 Unspecified sleep apnea Walk[facility]In [facility] Rajni noland 2022-05-25 00:00 Obstructive sleep apnea syndrome Walk- In [facility] Rajni noland 2022-05-25 00:00 Malignant neoplasm of prostate Walk[facility]In [facility] Rajni noland 2022-05-25 00:00 Type 2 diabetes mellitus without Walk- In Clinic [facility] & complications [facility] Rajni noland 2022-05-25 00:00 Obesity, unspecified Walk-In [facility] Rajni noland 2022-05-25 00:00 Hyperlipidemia, unspecified Walk-In Cl in [facility] Rajni noland 2022-05-25 00:00 Sleep apnea, unspecified Walk-In Cl[facility] c [facility] Rajni noland 2022-05-25 00:00 Essential (primary) hypertension Walk- In Clinic [facility] Rajni noland 2022-05-25 00:00 Cellulitis of left lower limb Walk-In [facility] Rajni noland 2022-05-25 00:00 Cellulitis of left lower limb Walk[facility]In [facility] Rajni noland 2022-05-25 00:00 Elevated prostate specific antigen [facility] & [PSA] Ancillary Services Rajni noland 2022-05-25 00:00 Tobacco use [facility] Rajni noland 2022-05-28 00:00 Tobacco user [facility] Rajni noland 2022-05-28 00:00 Diabetes mellitus without mention of Wa lk-In Clinic Primary Care & complication, type II or unspecified Anc [facility] Sonny type, not stated as uncontrolled 2022-05-28 00:00 Other and unspecified [facility] & hyperlipidemia Ancillary Services Rajni noland 2022-05-28 00:00 Tobacco use disorder [facility] Pr [facility] & Anc[facility] Services Rajni noland 2022-05-28 00:00 Raised prostate specific antigen [facility] Anc[facility] Services ludin 2022-05-28 00:00 Adenocarcinoma of prostate [facility] Rajni noland 2022-05-28 00:00 Benign essential hypertension [facility] ludin 2022-05-28 00:00 Obesity [facility] Prim [facility] & Anc[facility] Services ludin 2022-05-28 00:00 Hyperlipidemia [facility] Rajni noland 2022-05-28 00:00 Diabetes mellitus [facility] Rajni noland 2022-05-28 00:00 Unspecified sleep apnea [facility] Rajni noland 2022-05-28 00:00 Obstructive sleep apnea syndrome [facility] ludin 2022-05-28 00:00 Malignant neoplasm of prostate [facility] ludin 2022-05-28 00:00 Type 2 diabetes mellitus without [facility] Primary Care & complications Ancillary Services Rajni noland 2022-05-28 00:00 Obesity, unspecified [facility] Pr [facility] Anc[facility] Services Rajni noland 2022-05-28 00:00 Hyperlipidemia, unspecified [facility] Rajni noland 2022-05-28 00:00 Sleep apnea, unspecified [facility] Services ludin 2022-05-28 00:00 Essential (primary) hypertension [facility] Rajni noland 2022-05-28 00:00 Elevated prostate specific antigen [facility]] [facility] Rajni noland 2022-05-28 00:00 Tobacco use [facility] Services Rajni braxtonludin 2022-05-30 00:00 Tobacco user [facility] Services Rajni noland 2022-05-30 00:00 Diabetes mellitus without mention of [facility] & complication, type II or unspecified Anc illary Services Sonny type, not stated as uncontrolled 2022-05-30 00:00 Other and unspecified [facility] & hyperlipidemia Ancillary Services Rajni noland 2022-05-30 00:00 Tobacco use disorder [facility] Services Rajni noland 2022-05-30 00:00 Raised prostate specific antigen [facility] Rajni noland 2022-05-30 00:00 Adenocarcinoma of prostate [facility] Rajni noland 2022-05-30 00:00 Benign essential hypertension [facility] Rajni noland 2022-05-30 00:00 Obesity [facility] Rajni noland 2022-05-30 00:00 Hyperlipidemia [facility] Rajni noland 2022-05-30 00:00 Diabetes mellitus [facility] Rajni noland 2022-05-30 00:00 Unspecified sleep apnea [facility] Rajni noland 2022-05-30 00:00 Obstructive sleep apnea syndrome [facility] Rajni noland 2022-05-30 00:00 Malignant neoplasm of prostate [facility] Rajni noland 2022-05-30 00:00 Type 2 diabetes mellitus without [facility] Primary Care & complications Ancillary Services Rajni noland 2022-05-30 00:00 Obesity, unspecified [facility] Services Rajni noland 2022-05-30 00:00 Hyperlipidemia, unspecified [facility] Rajni noland 2022-05-30 00:00 Sleep apnea, unspecified [facility] Services Rajni noland 2022-05-30 00:00 Essential (primary) hypertension [facility] Services Rajni noland 2022-05-30 00:00 Elevated prostate specific antigen [facility] Rajni noland 2022-05-30 00:00 Tobacco use [facility] & Ancillary Services Rajni noland Procedures date description facility 2022-05-25 00:00 Visit Code Hold [facility] & Ancillary Services Sonny 2022-05-25 00:00 Visit Code Hold [facility] & Anc[facility] Services Sonny Results/Labs No information. Social History date description facility 2022-05-25 00:00 Smoker, current status unknown [facility] Rajni noland 2022-05-25 00:00 Smoker, current status unknown [facility] & Ancillary Services Rajni noland Vital Signs date measurement value units 2022-05-25 00:00 BMI 30.95 kg/m2 2022-05-25 00:00 BP_diastolic 68 mmHg 2022-05-25 00:00 BP_systolic 90 mmHg 2022-05-25 00:00 heart_rate 60 /min 2022-05-25 00:00 height_metric 191.77 cm 2022-05-25 00:00 height_standard 75.5 in 2022-05-25 00:00 respiration_rate 16 /min 2022-05-25 00:00 temperature_metric 36.83 C 2022-05-25 00:00 temperature_standard 98.3 F 2022-05-25 00:00 weight_metric 113.4 kg 2022-05-25 00:00 weight_standard 250 lb
[2022-06-05 10:57] LABS: BASOPHILS % (AUTO) 0.4 %; EOSINOPHILS # (AUTO) 0.2 10^3/uL (0.0-0.7); EOSINOPHILS % (AUTO) 2.5 %; HCT - HEMATOCRIT 26.1 % (42.0-52.0); LYMPHOCYTES # (AUTO) 2.3 10^3/uL (1.5-3.5); LYMPHOCYTES % (AUTO) 30.4 %; MEAN CORPUSCULAR HEMOGLOBIN 20.4 pg (27.0-31.0); MEAN CORPUSCULAR HGB CONC 26.4 g/dL (32.0-36.0); MEAN CORPUSCULAR VOLUME 77.2 fL (80.0-94.0); MEAN PLATELET VOLUME 9.6 fL (7.4-11.4); MONOCYTES # (AUTO) 0.9 10^3/uL (0.0-1.0); MONOCYTES % (AUTO) 12.1 %; NEUTROPHILS # (AUTO) 4.1 10^3/uL (1.5-6.6); NEUTROPHILS % (AUTO) 54.1 %; PLT - PLATELET COUNT 218 10^3/uL (130-450); RED BLOOD COUNT 3.38 10^6/uL (4.70-6.10); RED CELL DISTRIBUTION WIDTH 20.9 % (12.0-15.0); WHITE BLOOD COUNT 7.6 x10^3/uL (4.8-10.8)
[2022-06-05 11:00] LABS: HGB - HEMOGLOBIN 6.9 g/dL (14.0-18.0); SLIDE REVIEW? Indicated
[2022-06-05 11:13] LABS: PLATELET ESTIMATE, MANUAL NORMAL (130-450,000) (NORMAL); PLATELET MORPHOLOGY NORMAL APPEARANCE (NORMAL)
[2022-06-05 11:21] LABS: ALBUMIN 3.5 g/dL (3.2-5.5); BILIRUBIN,TOTAL 0.4 mg/dL (0.2-1.0); CALCIUM 9.5 mg/dL (8.5-10.3); CREATININE 1.3 mg/dL (0.6-1.2)
[2022-06-05] MEDS ORDERED: DEXTROSE 50% ABBOJECT 25 GM/50 ML SYRINGE IVP STA (11:55)
[2022-06-05] MEDS ORDERED: FUROSEMIDE 40 MG/4 ML VIAL IVP STA (11:55)
[2022-06-05] MEDS ORDERED: INSULIN REGULAR HUMAN 100 UNIT/1 ML 10 ML MDV IVP STA (11:56)
[2022-06-05] MEDS ORDERED: SODIUM ZIRCONIUM CYCLOSILICATE 5 GM PACKET PO STA (11:56)
[2022-06-05] MEDS ORDERED: ALBUTEROL NEB 2.5 MG/3 ML INH STA (11:58)
--- NOTE | 2022-06-05 12:54 | ED Physician Documentation ---
History of Present Illness - Stated complaint Stated Complaint: HIGH POTASSIUM LEVEL - Chief complaint Chief Complaint: General - History obtained from History obtained from: Patient - Additonal information Additional information: Patient is a 69-year-old male with a history of atrial fibrillation presenting for evaluation of Abnormal labs. He was seen by his PCP in [place] yesterday for worsening lower extremity swelling. He had outpatient labs done and was given a phone call this morning that his potassium level was high and that he should be seen in the emergency department. Other than leg swelling patient denies any other symptoms. He denies chest pain, dizziness, difficulty breathing, abnormal stool color. He is anticoagulated on Eliquis. Review of Systems Constitutional: denies: Fever Cardiac: denies: Chest pain / pressure Respiratory: denies: Dyspnea GI: denies: Abdominal Pain Musculoskeletal: reports: Extremity swelling Neurologic: denies: Headache PD PAST MEDICAL HISTORY - Past Medical History Cardiovascular: Hypertension Respiratory: COPD, Sleep apnea, CPAP use Neuro: None Endocrine/Autoimmune: Type 2 diabetes GI: GERD : None, Other HEENT: None Psych: None Musculoskeletal: Chronic back pain Derm: None - Past Surgical History Past Surgical History: Yes Ortho: Amputation Cardiovascular: Vascular surgery HEENT: Cataracts Derm: Skin cancer surgery - Present Medications Home Medications: Ambulatory Orders Medication Instructions Recorded Confirmed Carvedilol 12.5 mg PO BID 06/07/15 11/05/18 Metformin HCl 500 mg PO BID 06/07/15 11/05/18 Warfarin [Coumadin] 5 mg PO SUTUWETHSA@0900 06/07/15 11/05/18 Chlorhexidine Gluconate [Hibiclens] 1 oz TOP DAILY 04/16/18 04/16/18 Furosemide 20 mg PO DAILY 04/16/18 11/05/18 Acetaminophen 500 mg PO Q4HR PRN 11/05/18 11/05/18 Digoxin [Lanoxin] 125 mcg PO DAILY 11/05/18 11/05/18 Pregabalin [Lyrica] 75 mg PO BID 11/05/18 11/05/18 SITagliptin [Januvia] 1 tab PO DAILY 11/05/18 11/05/18 levoFLOXacin [Levaquin] 500 mg PO DAILY 11/05/18 11/05/18 metroNIDAZOLE [Flagyl] 500 mg PO TID 11/05/18 11/05/18 Saccharomyces Boulardii [Florastor] 250 mg PO DAILY #10 capsule 11/07/18 lisinopriL [Lisinopril] 2.5 mg PO DAILY #10 tablet 11/07/18 - Allergies Allergies/Adverse Reactions: Allergies Allergy/AdvReac Type Severity Reaction Status Date / Time guaifenesin AdvReac Intermediate Hallucinati Verified 06/05/22 10:19 ons - Social History Does the pt smoke?: Yes Smoking Status: Current every day smoker Does the pt drink ETOH?: Yes Does the pt have substance abuse?: No - Immunizations Immunizations are current?: Yes - POLST Patient has POLST: No PD ED PE NORMAL - General General: Alert and oriented X 3, No acute distress, Well developed/nourished - HEENT HEENT: Atraumatic - Neck Neck: Supple, no meningeal sign - Cardiac Cardiac: Other (Irregularly irregular, normal rate) - Respiratory Respiratory: No respiratory distress, Clear bilaterally - Abdomen Abdomen: Soft, Non tender, Non distended - Rectal Rectal: Other (Chaperoned by Sylvia STEIN, Normal colored stool) - Extremities Extremities: Other (Bilateral lower extremity edema) Results - Vitals Vitals: Vital Signs - 24 hr 06/05/22 06/05/22 06/05/22 10:10 12:25 12:26 Temperature 36.6 C Heart Rate 73 73 67 Respiratory 17 21 17 Rate Blood Pressure 115/59 L 132/80 H O2 Saturation 99 97 Oxygen O2 Source Room air - EKG (time done) 1031 Rate: Rate (enter#) (71) Rhythm: Atrial fibrillation Ischemia: No: ST elevation c/w ischemia - Labs Labs: Microbiology 06/05/22 12:01 Occult Blood - Final Stool Laboratory Tests 06/05/22 06/05/22 06/05/22 10:29 10:29 10:29 WBC 7.6 RBC 3.38 L Hgb 6.9 L* Hct 26.1 L MCV 77.2 L MCH 20.4 L MCHC 26.4 L RDW 20.9 H Plt Count 218 MPV 9.6 Neut # (Auto) 4.1 Lymph # (Auto) 2.3 [place] # (Auto) 0.9 Eos # (Auto) 0.2 Baso # (Auto) 0.0 Absolute Nucleated RBC 0.00 Nucleated RBC % 0.0 Manual Slide Review Indicated Platelet Estimate NORMAL (130-450,000) Platelet Morphology NORMAL APPEARANCE RBC Morph Micro Appear 1+ STOMATOCYTES Sodium 138 Potassium 7.0 H* Chloride 108 Carbon Dioxide 20 L Anion Gap 10.0 BUN 46 H Creatinine 1.3 H Estimated GFR (MDRD) 53 L Glucose 175 H Calcium 9.5 Total Bilirubin 0.4 AST 24 ALT 21 Alkaline Phosphatase 87 Total Protein 7.0 Albumin 3.5 Globulin 3.5 Albumin/Globulin Ratio 1.0 Blood Type Blood Type Recheck O NEGATIVE Antibody Screen Crossmatch IS Only 06/05/22 12:02 WBC RBC Hgb Hct MCV MCH MCHC RDW Plt Count MPV Neut # (Auto) Lymph # (Auto) [place] # (Auto) Eos # (Auto) Baso # (Auto) Absolute Nucleated RBC Nucleated RBC % Manual Slide Review Platelet Estimate Platelet Morphology RBC Morph Micro Appear Sodium Potassium Chloride Carbon Dioxide Anion Gap BUN Creatinine Estimated GFR (MDRD) Glucose Calcium Total Bilirubin AST ALT Alkaline Phosphatase Total Protein Albumin Globulin Albumin/Globulin Ratio Blood Type O NEGATIVE Blood Type Recheck Antibody Screen NEGATIVE Crossmatch IS Only See Detail PD Medical Decision Making - ED course Complexity details: reviewed results, re-evaluated patient, d/w patient, d/w family ED course: Patient presenting for evaluation of abnormal labs.Other than lower extremity swelling he denies other symptoms.His EKG shows atrial fibrillation without hyperacute T waves. Labs are reviewed and significant for hyperkalemia with potassium of 7.0 and hemoglobin of 6.9. His renal function is also reviewed And patient does not appear to be in acute kidney failure. As there are no EKG changes I do not feel he needs calcium. I have ordered Lokelma, insulin, dextrose, Lasix and Albuterol.Patient is on digoxin. We will add a dig level.The cause of his anemia is also unclear. He denies known blood loss and his rectal exam demonstrates normal colored stools.I have discussed with him the risks and benefits of a blood transfusion and he is agreeable.Discussed the case with admitting hospitalist, Dr. Luciano and she will admit the patient for further management. - Critical Care Time(min): 31 Time Includes: Direct patient care, Review records, Reassess patient Departure - Departure Disposition: ED Place in Observation Clinical Impression: Hyperkalemia, Anemia Condition: Fair
[2022-06-05 13:24] LABS: DIGOXIN 1.4 ng/mL
[2022-06-05] MEDS ORDERED: ACETAMINOPHEN 325 MG TABLET PO PRN (16:03)
[2022-06-05] MEDS ORDERED: ONDANSETRON 4 MG/2 ML VIAL IVP PRN (16:03)
[2022-06-05] MEDS ORDERED: SODIUM CHLORIDE FLUSH 0.9% 10 ML SYRINGE IVP PRN (16:03)
[2022-06-05 16:05] LABS: CALCIUM 9.9 mg/dL (8.5-10.3); CREATININE 1.2 mg/dL (0.6-1.2); POTASSIUM 5.4 mmol/L (3.5-5.0)
--- NOTE | 2022-06-05 16:33 | HISTORY & PHYSICAL EXAMINATION ---
Chief Complaint - Chief Complaint Chief Complaint: Leg edema, abnormal labs and sent in by his PCP History of Present Illness - Admitted From Admitted From:: ED - History Obtained From Records Reviewed: [facility] History obtained from: ED provider and the patient - History of Present Illness HPI Comment/Other: This is a 77-year-old white male with a history of systolic heart failure that has recovered, according to his last Echo done here in 2019. Patient has a history of atrial fibrillation on Eliquis, diabetes mellitus on oral agents, and has had prior leg wounds that have been managed at [facility] and by his RN . He also says he had a valve repaired just 6 months ago at [facility] but does not remember which one. The patient developed worsening leg edema and went to see his PCP yesterday. Labs were done. Also yesterday the PCP ordered an increase in his Lasix. The patient received a call today from the PCP that his potassium was very high and was advised to go to an emergency room. The pt arrived in our ER, his only complaint was the leg edema. Labs were repeated here in the ED today and his potassium is 7.0, creatinine 1.3, with his usual creatinine being 1.0. The patient received insulin, D50 and Lokelma. Also the patient was found to have a new anemia with hemoglobin of 6.9, the last Hgb done here was 3 years ago when he had normal hemoglobin of 12. His vital signs are stable, and ED provider said his stool is not black or red, suggesting that this was a slow drop in hemoglobin. The patient was ordered to get 1 unit of blood in the ED. The ED provider reached out to me on the Hospitalist team and we discussed management for this patient going forward. He will be placed in Observation status for telemetry monitoring as we continue to treat his hyperkalemia and look for its cause, and also to evaluate and manage his microcytic anemia. History - Past Medical History Cardiovascular: reports: Congestive heart failure (systolic faiure has resolved, as per Echo done here 2019), Hypertension Respiratory: reports: COPD, Sleep apnea, CPAP use Neuro: reports: None Endocrine/Autoimmune: reports: Type 2 diabetes GI: reports: GERD : reports: None, Other HEENT: reports: None Psych: reports: None Musculoskeletal: reports: Chronic back pain Derm: reports: None MRSA Hx?: No - Past Surgical History Ortho: reports: Amputation Cardiovascular: reports: Vascular surgery HEENT: reports: Cataracts Derm: reports: Skin cancer surgery - Family & Social History Family History Comment/Other: He does not know details, except that he mother is [place] and father of descent. Living arrangement: At home Living Situation: With spouse/s.o. Social History Notes: Lives with spouse at home. Ambulates with walker at baseline. Smokes 0- 1/4 pack per day. Minimal alcohol use. No illict drug use. - Substance History Use: Uses substance without health or social issues: Tobacco - POLST Patient has POLST: No Meds/Allgy - Home Medications Home Medications: Ambulatory Orders Medication Instructions Recorded Confirmed Metformin HCl 1,000 mg PO BID 06/07/15 06/05/22 Furosemide 40 mg PO BID 04/16/18 06/05/22 Acetaminophen 500 mg PO Q4HR PRN 11/05/18 06/05/22 Pregabalin [Lyrica] 75 mg PO DAILY 11/05/18 06/05/22 Apixaban [Eliquis] 5 mg PO BID 06/05/22 06/05/22 Cadexomer Iodine [Iodosorb] 10 gm TP .ONCE TO TWICE DAILY 06/05/22 06/05/22 Carvedilol [Coreg] 25 mg PO BID 06/05/22 06/05/22 Diclofenac Sodium 1% Gel [Voltaren 2 gm TOP BID PRN 06/05/22 06/05/22 Gel] Digoxin [Lanoxin] 250 mcg PO DAILY 06/05/22 06/05/22 Insulin Glargine,Hum.rec.anlog 20 unit SUBQ 06/05/22 06/05/22 [Basaglar Kwikpen U-100] Ipratropium [Atrovent] 1 puffs INH BID PRN 06/05/22 06/05/22 Manuka Honey 1 each TOP DAILY 06/05/22 06/05/22 Melatonin 30 mg PO HS 06/05/22 06/05/22 Mupirocin 2% Oint [Bactroban 2% 1 applic TOP .ONCE TO TWICE A DAY 06/05/22 06/05/22 Oint] Pregabalin [Lyrica] 150 mg PO HS 06/05/22 06/05/22 Saccharomyces Boulardii [Florastor] 250 mg PO DAILY PRN 06/05/22 06/05/22 lisinopriL [Zestril] 5 mg PO DAILY 06/05/22 06/05/22 - Allergies Allergies/Adverse Reactions: Allergies Allergy/AdvReac Type Severity Reaction Status Date / Time guaifenesin AdvReac Intermediate Hallucinati Verified 06/05/22 10:19 ons Review of Systems - Cardiovascular Cariovascular: reports: Edema - All Other Systems All Other Systems: reports: Reviewed and negative Exam - Vital Signs Reviewed Vital Signs: Yes Vital Signs: Vital Signs x48h Temp Pulse Pulse Resp BP BP Pulse Ox 06/05/22 15:28 36.6 C 87 20 117/75 98 06/05/22 14:32 80 16 137/74 H 98 06/05/22 13:55 36.4 C L 81 21 141/71 H 06/05/22 13:32 36.7 C 77 17 115/64 99 06/05/22 12:26 67 17 06/05/22 12:25 73 21 132/80 H 97 06/05/22 10:10 36.6 C 73 17 115/59 L 99 - Physical Exam General Appearance: positive: No acute distress, Alert Eyes Bilateral: positive: Normal inspection, EOMI ENT: positive: ENT inspection nml, No signs of dehydration Neck: positive: Nml inspection, No JVD Respiratory: positive: No respiratory distress, Breath sounds nml Cardiovascular: positive: Irregularly irregular (No murmur) Abdomen: positive: Non-tender, Nml bowel sounds, No distention Skin: positive: Warm, Dry Extremities: positive: Other (2+ edema to mid-shins, with venous stasis changes. He has several bandages: on left foot and heel, right randall, right toes.) Neurologic/Psychiatric: positive: Oriented x3, Motor nml Conclusion/Plan - Problem List (1) Hyperkalemia Conclusion/Plan: Etiology of this is not readily obvious: He is not on potassium replacement, not on spironolactone, does not appear to have hemolysis Plan: Place on telemetry, watching for arrhythmias We will order meds needed for lowering K Follow serum potassium every 6 to 12 hours Stop any meds that cause potassium retention; will not continue ALBERTINA-I Obtain EKG (2) Microcytic anemia Conclusion/Plan: Reportedly, his stool is not black or red, and he is not hypotensive or tachycardic, suggesting that this was a slow drop in hemoglobin. The patient was ordered to get 1 unit of blood started in the ED. The biggest concern is blood loss secondary to being on long-term anticoagulation Plan: We will check stool guaiac Follow CBC daily, transfuse if hemoglobin drops under 7 again He will need an outpatient GI work-up unless acute blood loss is documented while he is here Check Iron panel and replace if low (3) MATTIE (acute kidney injury) Conclusion/Plan: He has a mild elevation of creatinine of 1.3, baseline is 1.0. Possibly this is from cardiorenal syndrome and volume overload versus from using loop diuretics and intravascular volume depletion Plan: Because of the leg edema we will treat this as cardiorenal syndrome and continue with Lasix Avoid nephrotoxins Follow BUN/creat daily (4) Leg edema Conclusion/Plan: This was his newest complaint that he went to his PCP with Plan: Because of the leg edema we will treat this as cardiorenal syndrome and continue with Lasix Follow I's and O's and daily weights We will obtain an Echo to repeat check his LVEF and RV function We will obtain an EKG (it was not done in the ER), and check to troponin levels to rule out [place] and systolic failure as the cause of the new leg edema (5) Atrial fibrillation Conclusion/Plan: Rate is currently under control. He is usually on warfarin at home. Labs were reviewed and Dig level was not toxic Plan: Will resume Eliquis. It may need to be stopped if there is any obvious bleeding Continue with his usual meds for rate control, Carvedilol and Dig Place on telemetry Qualifiers: Atrial fibrillation type: permanent Qualified Code(s): I48.21 - Permanent atrial fibrillation (6) Anticoagulant long-term use Conclusion/Plan: As per history. He used to be on Coumadin, seen as I reviewed old records, now he is on Eliquis. Plan: Continue with his usual Eliquis unless there are signs of blood loss as with a possible positive guaiac stool (7) DM type 2 (diabetes mellitus, type 2) Conclusion/Plan: Plan: Will not give his Metformin while he has mild MATTIE We will order diabetic diet We will order fingerstick checks, sliding scale insulin coverage and hypoglycemia protocol Check A1c with a.m. labs - Lab Results Fish Bones: 02/08/23 04:24 06/06/22 04:24 - Diagnostic Imaging Results Diagnostic Imaging Results: positive: Final report reviewed - EKG Results EKG Interpreted Independently: Yes EKG Comparison: Changed from prior EKG EKG Findings: A-fib, frequent PVCs, low voltage, significant ST-T wave depressions diffusely. Since EKG from 11/05/2018, ST depressions are more prominent now.
[2022-06-05 16:46] LABS: INR 1.3 (0.8-1.2); PT - PROTHROMBIN TIME 14.7 secs (9.9-12.6)
--- NOTE | 2022-06-05 18:48 | PHARMACY PROGRESS NOTE ---
- Best Possible Medication History Admit Date and Time: 06/05/22 3815 Processed by: Pharmacy Medication History completed: Yes Patient Interview: Completed Secondary Source(s): Spouse/Significant other (Spoke with over the phone and confirmed meds against the medlist she has. She states that she does the wound changes for him as well. I also confirmed a couple meds with pt but seems to know more since she has the medlist. and pt stated he does not take glipizide, glyburide, or ASA. ), Insurance records As the person ultimately responsible for medication therapy, providers are able to order a medication from an existing home medication list in [facility] via the "Reconcile Routine" prior to Confirmation of that medication by wind farm support specialist. Such practice is discouraged except when the physician, in their clinical judgment, deems that a medical need exists for a medication without regard to previous use.
[2022-06-05] MEDS ORDERED: ACETAMINOPHEN 500 MG TABLET PO PRN (18:58)
[2022-06-05] MEDS: SODIUM CHLORIDE FLUSH 0.9% 10 ML SYRINGE IVP SCH (19:43)
[2022-06-05] MEDS: APIXABAN 5 MG TABLET PO SCH (20:46)
[2022-06-05] MEDS: INSULIN LISPRO 300 UNIT/3 ML PEN SUBQ SCH (20:50)
[2022-06-05] MEDS ORDERED: INSULIN GLARGINE-YFGN 300 UNIT/3 ML PEN SUBQ SCH (21:00)
[2022-06-05] MEDS ORDERED: carvediloL 12.5 MG TABLET PO SCH ×2 (21:00)
[2022-06-05] MEDS ORDERED: PREGABALIN 25 MG CAPSULE PO SCH ×2 (21:00)
[2022-06-06] MEDS: SODIUM CHLORIDE FLUSH 0.9% 10 ML SYRINGE IVP SCH ×2 (01:27→08:51)
[2022-06-06] MEDS ORDERED: PREGABALIN 25 MG CAPSULE PO SCH ×2 (03:20→21:00)
[2022-06-06 04:47] LABS: BASOPHILS % (AUTO) 0.4 %; EOSINOPHILS # (AUTO) 0.2 10^3/uL (0.0-0.7); EOSINOPHILS % (AUTO) 2.8 %; HCT - HEMATOCRIT 26.7 % (42.0-52.0); HGB - HEMOGLOBIN 7.4 g/dL (14.0-18.0); LYMPHOCYTES # (AUTO) 2.2 10^3/uL (1.5-3.5); LYMPHOCYTES % (AUTO) 26.6 %; MEAN CORPUSCULAR HEMOGLOBIN 21.6 pg (27.0-31.0); MEAN CORPUSCULAR HGB CONC 27.7 g/dL (32.0-36.0); MEAN CORPUSCULAR VOLUME 77.8 fL (80.0-94.0); MEAN PLATELET VOLUME 9.5 fL (7.4-11.4); MONOCYTES # (AUTO) 1.1 10^3/uL (0.0-1.0); NEUTROPHILS # (AUTO) 4.7 10^3/uL (1.5-6.6); NEUTROPHILS % (AUTO) 56.6 %; PLT - PLATELET COUNT 202 10^3/uL (130-450); RED BLOOD COUNT 3.43 10^6/uL (4.70-6.10); RED CELL DISTRIBUTION WIDTH 21.3 % (12.0-15.0); WHITE BLOOD COUNT 8.2 x10^3/uL (4.8-10.8)
[2022-06-06 04:49] LABS: SLIDE REVIEW? Indicated
[2022-06-06 05:04] LABS: PLATELET ESTIMATE, MANUAL NORMAL (130-450,000) (NORMAL); PLATELET MORPHOLOGY NORMAL APPEARANCE (NORMAL); WBC MORPHOLOGY (MULTIPLE) NORMAL APPEARANCE (NORMAL)
[2022-06-06 05:07] LABS: DIGOXIN 0.8 ng/mL
[2022-06-06 05:10] LABS: CREATININE 0.9 mg/dL (0.6-1.2); MAGNESIUM 1.8 mg/dL (1.7-2.8); PHOSPHORUS 3.2 mg/dL (2.5-4.6); POTASSIUM 4.8 mmol/L (3.5-5.0)
[2022-06-06] MEDS ORDERED: FUROSEMIDE 20 MG TABLET PO SCH (06:00)
[2022-06-06] MEDS ORDERED: FUROSEMIDE 20 MG/2 ML VIAL IVP SCH (06:00)
[2022-06-06] MEDS ORDERED: carvediloL 12.5 MG TABLET PO SCH (08:16)
[2022-06-06] MEDS: INSULIN LISPRO 300 UNIT/3 ML PEN SUBQ SCH ×2 (08:48→12:33)
[2022-06-06] MEDS: APIXABAN 5 MG TABLET PO SCH (08:48)
[2022-06-06] MEDS ORDERED: DIGOXIN 125 MCG TABLET PO SCH (09:00)
[2022-06-06] MEDS ORDERED: lisinopriL 5 MG TABLET PO SCH (09:00)
[2022-06-06 12:16] LABS: ESTIMATED AVERAGE GLUCOSE 209 mg/dL (70-100); HEMOGLOBIN A1c% 8.9 % (4.27-6.07)
--- NOTE | 2022-06-06 13:37 | Discharge Plan ---
Discharge Plan Problem Reviewed?: Yes Disposition: Home, Self Care Condition: Stable Diet: Diabetic Activity Restrictions: Activity as Tolerated Shower Restrictions: No Health Concerns: You are hospitalized to treat a very high potassium level which can be very dangerous. We watched your heart rhythm on telemetry and it was stable. The potassium level has come down with treatment. It is not exactly clear why your potassium was so high. I have adjusted (stopped) one of your medicines that could have been causing the high potassium, the Zestril). Please follow the new list of medications after discharge. Please see your Primary Care Provider and/or your Assembler [facility]ps soon, for close monitoring of this potassium blood level and your medications. By the way, you did not have aortic valve repair. You had a mitral valve repaired with a MitraClip. You should memorize this, and possibly your Assembler [facility] gave you a card, which you should keep in your wallet. Plan of Treatment: As above. Care Goals: Improvement in symptoms and stabilization of the goals. Assessment: The patient understands and is agreeable with the plan. Additional Instructions or Follow Up instructions: If you have new or worsening symptoms, call your PCP or your As[facility]er [facility] for advice, or come to the ER. No Smoking: If you smoke, Please STOP! Call for help.
--- NOTE | 2022-06-06 13:43 | DISCHARGE SUMMARY ---
Discharge Summary Admit Date: 06/05/22 Discharge Date: 06/06/22 Discharging Provider: Dr Amelie Araya Primary Care Provider: Unknown Condition at Discharge: Stable Discharge Disposition: 01 Home, Self Care - HPI History of Present Illness: This is a 77-year-old white male with a history of systolic heart failure that has recovered, according to his last Echo done here in 2019. Patient has a history of atrial fibrillation on Eliquis, diabetes mellitus on oral agents, and has had prior leg wounds that have been managed at [facility] and by his RN . He also says he had a valve repaired just [address] [facility] but does not remember which one. The patient developed worsening leg edema and went to see his PCP yesterday. Labs were done. Also yesterday the PCP ordered an increase in his Lasix. The patient received a call today from the PCP that his potassium was very high and was advised to go to an emergency room. The pt arrived in our ER, his only complaint was the leg edema. Labs were repeated here in the ED today and his potassium is 7.0, creatinine 1.3, with his usual creatinine being 1.0. The patient received insulin, D50 and Lokelma. Also the patient was found to have a new anemia with hemoglobin of 6.9, the last Hgb done here was 3 years ago when he had normal hemoglobin of 12. His vital signs are stable, and ED provider said his stool is not black or red, suggesting that this was a slow drop in hemoglobin. The patient was ordered to get 1 unit of blood in the ED. The ED provider reached out to me on the Hospitalist team and we discussed management for this patient going forward. He will be placed in Observation status for telemetry monitoring as we continue to treat his hyperkalemia and look for its cause, and also to evaluate and manage his microcytic anemia. - HOSPITAL COURSE Hospital Course: (1) Hyperkalemia Etiology of this was not readily obvious: He was not on potassium replacement, not on spironolactone, did not appear to have hemolysis. His EKG showed no significant changes from hyperkalemia. We placed him on telemetry, watching for arrhythmias, and there were none. His ALBERTINA-I was stopped. He was given Insulin, D50 and Lokelma. On the day of discharge, K was 4.8 (2) Microcytic anemia Reportedly, his stool is not black or red, and he is not hypotensive or tachycardic, suggesting that he has had a slow drop in hemoglobin. The patient received 1 unit of blood started in the ED. Hgb the following day was 7.4. The biggest concern is blood loss secondary to being on long-term anticoagulation. He had no BM here, to send off for stool guaic. He Iron panel was not entirely abnormal. He needs further evaluation and management of his severe anemia. (3) MATTIE (acute kidney injury) He had a mild elevation of creatinine of 1.3, baseline is 1.0. Possibly this was from cardiorenal syndrome and volume overload, thus we continued Lasix. At discharge, creat was 0.9. (4) Leg edema This was his newest complaint that he went to his PCP with. We treated this by continuing with Lasix. Troponins x2 were done and were unremarkable and his Echo done while here showed preserved LVEF but Cor pulmonale was seen. (5) Cor Pulmonale This was seen on Echo done while here, and probably explains his leg edema. (6) S/P Mitral valve Clip implantation This was seen on Echo done while here. At admission, he did not know his Dx or what was done. (7) Atrial fibrillation (I48.21 - Permanent atrial fibrillation) Rate was under control. He was kept on Eliquis, as we saw no obvious bleeding (8) Anticoagulant long-term use We continued with his usual Eliquis since there were no signs of blood loss. A guaiac stool test was ordered but he had no BM while here. (9) DM type 2 (diabetes mellitus, type 2) We did not give his Metformin, since he had mild MATTIE, ordered a diabetic diet, fingerstick checks, sliding scale insulin coverage and hypoglycemia protocol. His A1c came back at 8.9, indicating poor glu control at home. He needs further management of this. (10) Chronic ulcer of leg Continue outpatient management. - ALLERGIES Allergies/Adverse Reactions: Allergies Allergy/AdvReac Type Severity Reaction Status Date / Time codeine AdvReac Intermediate Hallucinati Verified 06/06/22 11:16 ons guaiacol AdvReac Intermediate Hallucinati Verified 06/06/22 11:16 ons guaifenesin AdvReac Intermediate Hallucinati Verified 06/05/22 10:19 ons promethazine [From Phenergan] AdvReac Intermediate Hallucinati Verified 06/06/22 11:17 ons - MEDICATIONS Home Medications: Ambulatory Orders Medication Instructions Recorded Confirmed Metformin HCl 1,000 mg PO BID 06/07/15 06/05/22 Furosemide 40 mg PO BID 04/16/18 06/05/22 Acetaminophen 500 mg PO Q4HR PRN 11/05/18 06/05/22 Pregabalin [Lyrica] 75 mg PO DAILY 11/05/18 06/05/22 Apixaban [Eliquis] 5 mg PO BID 06/05/22 06/05/22 Cadexomer Iodine [Iodosorb] 10 gm TP .ONCE TO TWICE DAILY 06/05/22 06/05/22 Carvedilol [Coreg] 25 mg PO BID 06/05/22 06/05/22 Diclofenac Sodium 1% Gel [Voltaren 2 gm TOP BID PRN 06/05/22 06/05/22 Gel] Digoxin [Lanoxin] 250 mcg PO DAILY 06/05/22 06/05/22 Insulin Glargine,Hum.rec.anlog 20 unit SUBQ HS 06/05/22 06/05/22 [Basaglar Kwikpen U-100] Ipratropium [Atrovent] 1 puffs INH BID PRN 06/05/22 06/05/22 Manuka Honey 1 each TOP DAILY 06/05/22 06/05/22 Melatonin 30 mg PO HS 06/05/22 06/05/22 Mupirocin 2% Oint [Bactroban 2% 1 applic TOP .ONCE TO TWICE A DAY 06/05/22 06/05/22 Oint] Pregabalin [Lyrica] 150 mg PO HS 06/05/22 06/05/22 Saccharomyces Boulardii [Florastor] 250 mg PO DAILY PRN 06/05/22 06/05/22 - PHYSICAL EXAM AT DISCHARGE General Appearance: positive: No acute distress, Alert, Other (Appears older than stated age. Has marked kyphosis. Disheveled.) Eyes Bilateral: positive: Normal inspection, EOMI ENT: positive: No signs of dehydration Neck: positive: Nml inspection, No JVD Respiratory: positive: No respiratory distress, Breath sounds nml Cardiovascular: positive: No murmur, Irregularly irregular Abdomen: positive: Non-tender, Nml bowel sounds, No distention Skin: positive: Warm, Dry Extremities: positive: Other (1-2+ edema to mid shins.) Neurologic/Psychiatric: positive: Oriented x3, Motor nml - LABS Result Diagrams: 06/06/22 04:24 06/06/22 04:24 - DIAGNOSTIC IMAGING Diagnostic Imaging Results: Final report reviewed - FOLLOW UP Follow Up: See PCP in routine F/U. - TIME SPENT Time Spent in Discharge (Minutes): 30
[2022-06-06] MEDS ORDERED: WARFARIN 5 MG TABLET PO SCH (14:00)
[2022-06-06 14:35] VITALS: BP 138/63
[2022-06-06] MEDS ORDERED: PREGABALIN 100 MG CAPSULE PO SCH (21:00)
== END 2022-06-06 15:15 | disposition home or self-care (01) ==
LOC: ED 09:55 → ICU 16:03
PROVIDERS: ADMIT Internal Medicine; ATTEND Internal Medicine
DX: E87.5 Hyperkalemia (principal); D50.9 Iron deficiency anemia, unspecified; N17.9 Acute kidney failure, unspecified; I48.21 Permanent atrial fibrillation; I11.0 Hypertensive heart disease with heart failure; I50.20 Unspecified systolic (congestive) heart failure; E11.9 Type 2 diabetes mellitus without complications; F17.200 Nicotine dependence, unspecified, uncomplicated; Z79.84 Long term (current) use of oral hypoglycemic drugs; Z79.01 Long term (current) use of anticoagulants; Z20.822 Contact with and (suspected) exposure to COVID-19
CPT/HCPCS: 36415; 36430; 80048; 80053; 80162; 82272; 83036; 83540; 83735; 84100; 84466; 84484; 85025; 85610; 86850; 86900; 86901; 86920; 87150; 87635; 93005; 93306; 94640; 96374; 99291; A9270; G0378; J1815; P9016

== ENCOUNTER 2022-09-03 08:00 | Outpatient (CLI) | payer MEDICARE, BC ==
[2022-09-03 15:45] LABS: CALCIUM 9.1 mg/dL (8.5-10.3); CREATININE 1.1 mg/dL (0.6-1.2); POTASSIUM 4.2 mmol/L (3.5-5.0)
== END 2022-09-03 23:59 | disposition home or self-care (01) ==
LOC: LAB.R 08:00
PROVIDERS: ATTEND Internal Medicine Cardiovascular Disease
DX: I50.33 Acute on chronic diastolic (congestive) heart failure (principal)
CPT/HCPCS: 80048

== ENCOUNTER 2022-09-28 13:16 | Outpatient (CLI) | payer MEDICARE, BC | END 2022-09-28 23:59 | disposition critical access hospital (66) | LOC: EMS 13:16 | DX: R50.9 Fever, unspecified (principal); R05.9 Cough, unspecified; R53.1 Weakness; R53.83 Other fatigue | CPT/HCPCS: A0425; A0427 ==

== ENCOUNTER 2022-09-28 13:41 | Inpatient (IN) | payer MEDICARE, BC ==
--- NOTE | 2022-09-28 14:01 | ED Physician Documentation ---
PD HPI URI - Stated complaint Stated Complaint: SOA/FEVER/WEAKNESS - History obtained from History obtained from: Patient, Family, EMS - History of Present Illness Timing - onset: Today, Yesterday Timing duration: Days (04/30) Timing details: Abrupt onset, Still present Associated symptoms: Fever (overnight and today), Chills, Nasal congestion, Productive cough, Dyspnea, Bilateral edema (mild chronic). No: Hemoptysis, Chest pain, NVD Contributing factors: No: Sick contact, Immunocompromised (just had COVID booster 4 days ago this past week. [place] okay after it initially.) Improves by: Rest Worsened by: Activity, Position (breathing easier sitting up.) Similar symptoms before: Has not had sx before Recently seen: Not recently seen (got COVID booster this past week.) Review of Systems Constitutional: reports: Fever, Chills, Myalgias (particularly lower back and hips right now.), Fatigue Nose: reports: Congestion. denies: Rhinorrhea / runny nose Throat: denies: Sore throat Cardiac: denies: Chest pain / pressure Respiratory: reports: Dyspnea, Cough, Wheezing GI: denies: Abdominal Pain, Nausea, Vomiting, Diarrhea Musculoskeletal: reports: Back pain, Extremity swelling (mild chronic due to CHF/ atrial fib.). denies: Neck pain Neurologic: reports: Generalized weakness. denies: Focal weakness, Numbness, Altered mental status, Headache PD PAST MEDICAL HISTORY - Past Medical History Cardiovascular: Congestive heart failure (systolic faiure has resolved, as per Echo done here 2019), Hypertension Respiratory: Sleep apnea, CPAP use Neuro: None Endocrine/Autoimmune: Type 2 diabetes GI: GERD : None, Other HEENT: None Psych: None Musculoskeletal: Chronic back pain Derm: None - Past Surgical History Past Surgical History: Yes Ortho: Amputation Cardiovascular: Vascular surgery HEENT: Cataracts Derm: Skin cancer surgery - Present Medications Home Medications: Ambulatory Orders Medication Instructions Recorded Confirmed Metformin HCl 1,000 mg PO BID 06/07/15 06/05/22 Furosemide 40 mg PO BID 04/16/18 06/05/22 Acetaminophen 500 mg PO Q4HR PRN 11/05/18 06/05/22 Pregabalin [Lyrica] 75 mg PO DAILY 11/05/18 06/05/22 Apixaban [Eliquis] 5 mg PO BID 06/05/22 06/05/22 Cadexomer Iodine [Iodosorb] 10 gm TP .ONCE TO TWICE DAILY 06/05/22 06/05/22 Carvedilol [Coreg] 25 mg PO BID 06/05/22 06/05/22 Diclofenac Sodium 1% Gel [Voltaren 2 gm TOP BID PRN 06/05/22 06/05/22 Gel] Digoxin [Lanoxin] 250 mcg PO DAILY 06/05/22 06/05/22 Insulin Glargine,Hum.rec.anlog 20 unit SUBQ HS 06/05/22 06/05/22 [Basaglar Kwikpen U-100] Ipratropium [Atrovent] 1 puffs INH BID PRN 06/05/22 06/05/22 Manuka Honey 1 each TOP DAILY 06/05/22 06/05/22 Melatonin 30 mg PO HS 06/05/22 06/05/22 Mupirocin 2% Oint [Bactroban 2% 1 applic TOP .ONCE TO TWICE A DAY 06/05/22 06/05/22 Oint] Pregabalin [Lyrica] 150 mg PO HS 06/05/22 06/05/22 Saccharomyces Boulardii [Florastor] 250 mg PO DAILY PRN 06/05/22 06/05/22 - Allergies Allergies/Adverse Reactions: Allergies Allergy/AdvReac Type Severity Reaction Status Date / Time codeine AdvReac Intermediate Hallucinati Verified 06/06/22 11:16 ons guaiacol AdvReac Intermediate Hallucinati Verified 06/06/22 11:16 ons guaifenesin AdvReac Intermediate Hallucinati Verified 06/05/22 10:19 ons promethazine [From Phenergan] AdvReac Intermediate Hallucinati Verified 06/06/22 11:17 ons - Living Situation Living Situation: reports: With spouse/s.o. Living Arrangement: reports: At home - Social History Does the pt smoke?: Yes Smoking Status: Current some day smoker Does the pt drink ETOH?: Yes Does the pt have substance abuse?: No - Immunizations Immunizations are current?: Yes - POLST Patient has POLST: No PD ED PE NORMAL - Vitals Vital signs reviewed: Yes - General General: Alert and oriented X 3, No acute distress (somewhat somnolent. Able to converse in sentences. ), Well developed/nourished - HEENT HEENT: Pharynx benign. No: Moist mucous membranes - Neck Neck: Supple, no meningeal sign, No adenopathy - Cardiac Cardiac: No murmur. No: RRR (irregular but rate in 60s.) - Respiratory Respiratory: No respiratory distress. No: Clear bilaterally (There is some mild coarse sounds in the perihilar area more to the right. Diffuse expiratory wheezing noted. Mildly prolonged expiratory phase. Faint fine crackles at the bases.) - Derm Derm: Normal color, Warm and dry - Extremities Extremities: Normal ROM s pain, No calf tenderness / cord, Other (1+ edema in both lower legs/ankles. ) - Neuro Neuro: Alert and oriented X 3, No motor deficit, No sensory deficit, Normal speech Results - Vitals Vitals: Vital Signs - 24 hr 09/28/22 09/28/22 09/28/22 13:54 14:07 14:16 Temperature 38.8 C H Heart Rate 67 Respiratory 18 Rate Blood Pressure 115/42 L O2 Saturation 97 88 L 97 If not protocol 2 : Oxygen Flow, liters/minute 09/28/22 14:33 Temperature Heart Rate 74 Respiratory 18 Rate Blood Pressure O2 Saturation If not protocol 2 : Oxygen Flow, liters/minute Oxygen O2 Source Nasal cannula Oxygen Flow Rate 2 - Labs Labs: Laboratory Tests 09/28/22 09/28/22 09/28/22 14:31 14:34 14:34 WBC 20.1 H RBC 4.52 L Hgb 11.9 L Hct 38.7 L MCV 85.6 MCH 26.3 L MCHC 30.7 L RDW 19.4 H Plt Count 155 MPV 10.5 Neut # (Auto) Not Reportable Lymph # (Auto) Not Reportable [place] # (Auto) Not Reportable Eos # (Auto) Not Reportable Baso # (Auto) Not Reportable Absolute Nucleated RBC Not Reportable Total Counted 100 Band Neuts % (Manual) 1 Reactive Lymphs % (Man) 7 Abnorm Lymph % (Manual) 0 Nucleated RBC % Not Reportable Neutrophils # (Manual) 15.5 H Lymphocytes # (Manual) 2.2 Monocytes # (Manual) 2.2 H Eosinophils # (Manual) 0.0 Basophils # (Manual) 0.2 H Differential Comment MANUAL DIFFERENTIAL Platelet Estimate NORMAL (130-450,000) Platelet Morphology NORMAL APPEARANCE RBC Morph Micro Appear 2+ ANISOCYTOSIS Sodium 137 Potassium 4.0 Chloride 97 L Carbon Dioxide 29 Anion Gap 11.0 BUN 33 H Creatinine 1.2 Estimated GFR (MDRD) 59 L Glucose 183 H Calcium 8.8 Magnesium 1.8 Total Bilirubin 0.7 AST 32 ALT 24 Alkaline Phosphatase 89 B-Natriuretic Peptide Total Protein 7.1 Albumin 3.6 Globulin 3.5 Albumin/Globulin Ratio 1.0 Lipase 25 Nasal Adenovirus (PCR) NOT DETECTED Nasal B. parapertussis DNA (PCR) NOT DETECTED Nasal Coronavir 229E PCR NOT DETECTED Nasal Coronavir HKU1 PCR NOT DETECTED Nasal Coronavir NL63 PCR NOT DETECTED Nasal Coronavir OC43 PCR NOT DETECTED Nasal Enterovir/Rhinovir PCR NOT DETECTED Nasal Influenza B PCR NOT DETECTED Nasal Influenza A PCR NOT DETECTED Nasal Parainfluen 1 PCR NOT DETECTED Nasal Parainfluen 2 PCR NOT DETECTED Nasal Parainfluen 3 PCR NOT DETECTED Nasal Parainfluen 4 PCR NOT DETECTED Nasal RSV (PCR) NOT DETECTED Nasal B.pertussis DNA PCR NOT DETECTED Nasal C.pneumoniae (PCR) NOT DETECTED Nam Human Metapneumo PCR NOT DETECTED Nasal M.pneumoniae (PCR) NOT DETECTED Nasal SARS-CoV-2 (PCR) NOT DETECTED Last Dose Date UNKNOWN Last Dose Time UNKNOWN Digoxin 1.5 09/28/22 14:34 WBC RBC Hgb Hct MCV MCH MCHC RDW Plt Count MPV Neut # (Auto) Lymph # (Auto) [place] # (Auto) Eos # (Auto) Baso # (Auto) Absolute Nucleated RBC Total Counted Band Neuts % (Manual) Reactive Lymphs % (Man) Abnorm Lymph % (Manual) Nucleated RBC % Neutrophils # (Manual) Lymphocytes # (Manual) Monocytes # (Manual) Eosinophils # (Manual) Basophils # (Manual) Differential Comment Platelet Estimate Platelet Morphology RBC Morph Micro Appear Sodium Potassium Chloride Carbon Dioxide Anion Gap BUN Creatinine Estimated GFR (MDRD) Glucose Calcium Magnesium Total Bilirubin AST ALT Alkaline Phosphatase B-Natriuretic Peptide 452 H Total Protein Albumin Globulin Albumin/Globulin Ratio Lipase Nasal Adenovirus (PCR) Nasal B. parapertussis DNA (PCR) Nasal Coronavir 229E PCR Nasal Coronavir HKU1 PCR Nasal Coronavir NL63 PCR Nasal Coronavir OC43 PCR Nasal Enterovir/Rhinovir PCR Nasal Influenza B PCR Nasal Influenza A PCR Nasal Parainfluen 1 PCR Nasal Parainfluen 2 PCR Nasal Parainfluen 3 PCR Nasal Parainfluen 4 PCR Nasal RSV (PCR) Nasal B.pertussis DNA PCR Nasal C.pneumoniae (PCR) Nam Human Metapneumo PCR Nasal M.pneumoniae (PCR) Nasal SARS-CoV-2 (PCR) Last Dose Date Last Dose Time Digoxin - Rads (name of study) chest Relevant Findings:: Prelim report reviewed, EMP independent interpretation of test (general interstitial changes c/w some CHF. No focal infiltrates noted. ), See rad report PD Medical Decision Making - ED course Complexity details: reviewed results, re-evaluated patient (improved breathing after duoneb nebulizer treatment. Resting easily. Still maintaining adequate sats with just 2 lpm. Does not appear to be tiring. ), considered differential, d/w patient, d/w family () ED course: The patient appears to be getting sick abruptly from just yesterday to today. He has fevers coughing wheezing and hypoxia. He does not normally use oxygen at home. History of CHF and A-fib. He denies COPD or asthma though does have a Atrovent inhaler prescribed at home. He uses CPAP at night without oxygen. Here his initial oxygenation was noted to be 84-86 on room air. Initially was a little bit higher but had just come in by EMS with oxygen on the way. He is able to converse in sentences. He is slightly somnolent but still interacting well. He does not appear to be ready to tire. Chest x-ray shows interstitial changes more likely consistent with CHF. No obvious infiltrate. However clinically he has coarse sounds with wheezing more on the right than the left. He did improve with the nebulizer. He has thick white sputum in the oropharynx. Fever and chills and elevated white count with elevated neutrophils and 1 band. He is hypoxic on room air but does well with just 2 L nasal cannula at 92 to 94%. I did talk with the hospitalist about the findings. There was agreement to hospitalize the patient for further care. The respiratory panel still pending at this time regarding viral. However there would be concern for bacterial infection and he was given appropriate respiratory coverage with Rocephin and Zithromax. He does have history of CHF. He does not look fluid overloaded. His BNP is only 460 with the other 1 on the chart being in the 300s. However I did not want to excessively hydrate so was That just mild amount of IV fluids. Departure - Departure Disposition: 66 [facility] DC/Xfer Clinical Impression: Hypoxia, Chronic atrial fibrillation Pneumonia Qualifiers: Pneumonia type: due to unspecified organism Laterality: unspecified laterality Lung location: unspecified part of lung Qualified Code(s): J18.9 - Pneumonia, unspecified organism CHF (congestive heart failure) Qualifiers: Heart failure type: unspecified Heart failure chronicity: chronic Qualified Code(s): I50.9 - Heart failure, unspecified Condition: Stable
[2022-09-28] MEDS ORDERED: IPRATROPIUM/ALBUTEROL 3 ML NEB INH STA (14:16)
[2022-09-28] MEDS ORDERED: cefTRIAXone 1 GM VIAL IVP STA (14:20)
[2022-09-28] MEDS ORDERED: AZITHROMYCIN INJ 500 MG in SODIUM CHLORIDE 0.9% 250 ML IV STA (14:20)
[2022-09-28] MEDS ORDERED: ACETAMINOPHEN 500 MG TABLET PO STA (14:25)
--- NOTE | 2022-09-28 14:39 | XRAY Report ---
PROCEDURE: Chest 1 View X-Ray INDICATIONS: chest pain TECHNIQUE: One view of the chest was acquired. COMPARISON: None. FINDINGS: Surgical changes and devices: None. Lungs and pleura: No pleural effusions or pneumothorax. Lungs are clear. Increased pulmonary erlinda ings. Mediastinum: Mediastinal contours appear normal. Heart size is normal. Bones and chest wall: No suspicious bony lesions. Overlying soft tissues appear unremarkable. IMPRESSION: Increased pulmonary markings. Findings suggestive of interstitial edema. Reviewed by: Ben Sanches on 09/28/2022 2:37 PM PDT Approved by: Ben Sanches on 09/28/2022 2:37 PM PDT Station ID: [id number]
[2022-09-28 14:50] LABS: BASOPHILS % (AUTO) 0.2 %; HCT - HEMATOCRIT 38.7 % (42.0-52.0); HGB - HEMOGLOBIN 11.9 g/dL (14.0-18.0); LYMPHOCYTES % (AUTO) 9.9 %; MEAN CORPUSCULAR HEMOGLOBIN 26.3 pg (27.0-31.0); MEAN CORPUSCULAR HGB CONC 30.7 g/dL (32.0-36.0); MEAN CORPUSCULAR VOLUME 85.6 fL (80.0-94.0); MEAN PLATELET VOLUME 10.5 fL (7.4-11.4); MONOCYTES % (AUTO) 7.7 %; NEUTROPHILS % (AUTO) 81.1 %; PLT - PLATELET COUNT 155 10^3/uL (130-450); RED BLOOD COUNT 4.52 10^6/uL (4.70-6.10); RED CELL DISTRIBUTION WIDTH 19.4 % (12.0-15.0); WHITE BLOOD COUNT 20.1 x10^3/uL (4.8-10.8)
[2022-09-28 15:03] LABS: ABNORMAL LYMPHS % (MANUAL) 0 %
[2022-09-28 15:13] LABS: ALBUMIN 3.6 g/dL (3.2-5.5); ALKALINE PHOSPHATASE 89 IU/L (42-121); ALT ALANINE AMINOTRANSFERASE 24 IU/L (10-60); AST ASPARTATE AMINOTRANSFERASE 32 IU/L (10-42); BILIRUBIN,TOTAL 0.7 mg/dL (0.2-1.0); BUN - BLOOD UREA NITROGEN 33 mg/dL (6-20); CALCIUM 8.8 mg/dL (8.5-10.3); CARBON DIOXIDE - CO2 29 mmol/L (21-32); CHLORIDE 97 mmol/L (101-111); CREATININE 1.2 mg/dL (0.6-1.2); DIGOXIN 1.5 ng/mL; GFR - MDRD 59 (>89); GLUCOSE 183 mg/dL (70-100); LIPASE 25 U/L (22-51); MAGNESIUM 1.8 mg/dL (1.7-2.8); SODIUM 137 mmol/L (135-145); TOTAL PROTEIN 7.1 g/dL (6.7-8.2)
[2022-09-28 15:31] LABS: B. PARAPERTUSSIS- RESP PCR PAN NOT DETECTED; B. PERTUSSIS- RESP PCR PANEL NOT DETECTED; C. PNEUMONIAE- RESP PCR PANEL NOT DETECTED; CORONAVIRUS 229E-RESP PCR NOT DETECTED; CORONAVIRUS HKU1-RESP PCR NOT DETECTED; CORONAVIRUS NL63-RESP PCR NOT DETECTED; CORONAVIRUS OC43-RESP PCR NOT DETECTED; HUMAN METAPNEUMOVIRUS NOT DETECTED; INFLUENZA A- RESP PCR PANEL NOT DETECTED; INFLUENZA B - RESP PCR PANEL NOT DETECTED; M. PNEUMONIAE- RESP PCR PANEL NOT DETECTED; PARAINFLUENZA VIRUS 1 NOT DETECTED; PARAINFLUENZA VIRUS 2 NOT DETECTED; PARAINFLUENZA VIRUS 3 NOT DETECTED; PARAINFLUENZA VIRUS 4 NOT DETECTED; RHINOVIRUS/ENTEROVIRUS NOT DETECTED; RSV- RESP PCR PANEL NOT DETECTED; SARS-CoV-2 -RESP PCR PANEL NOT DETECTED
[2022-09-28 15:43] LABS: BAND NEUTROPHILS % (MANUAL) 1 %; BASOPHILS # (MANUAL) 0.2 10^3/uL (0-0.1); BASOPHILS % (MANUAL) 1 %; DIFFERENTIAL COMMENT MANUAL DIFFERENTIAL; LYMPHOCYTES # (MANUAL) 2.2 10^3/uL (1.5-3.5); LYMPHOCYTES % (MANUAL) 4 %; MONOCYTES # (MANUAL) 2.2 10^3/uL (0.0-1.0); NEUTROPHILS # (MANUAL) 15.5 10^3/uL (1.5-6.6); PLATELET ESTIMATE, MANUAL NORMAL (130-450,000) (NORMAL); PLATELET MORPHOLOGY NORMAL APPEARANCE (NORMAL); RBC MORPHOLOGY (MULTIPLE) 2+ ANISOCYTOSIS (NORMAL); REACTIVE LYMPHS % (MANUAL) 7 %
[2022-09-28] MEDS ORDERED: SODIUM CHLORIDE 0.9% 1,000 ML IV STA (16:00)
[2022-09-28] MEDS ORDERED: SODIUM CHLORIDE FLUSH 0.9% 10 ML SYRINGE IVP PRN (17:13)
[2022-09-28] MEDS ORDERED: ONDANSETRON 4 MG/2 ML VIAL IVP PRN (17:13)
[2022-09-28] MEDS ORDERED: IPRATROPIUM/ALBUTEROL 3 ML NEB INH PRN (17:16)
--- NOTE | 2022-09-28 17:29 | HISTORY & PHYSICAL EXAMINATION ---
Chief Complaint - Chief Complaint Chief Complaint: SOA, hypoxia History of Present Illness - Admitted From Admitted From:: ED - History Obtained From Records Reviewed: Yes History obtained from: ED provider and records reviewed, and minimal history from pt - History of Present Illness HPI Comment/Other: This is a 77-year-old white male with a history of MitraClip done in 2021 and resultant PFO with [id number] shunt, history of systolic heart failure but Echos since 2019 have shown a normal EF. Patient was admitted here just 4 months ago for MATTIE and hyperkalemia, required Lokelma, D50 and insulin. An Echo was done then that confirmed the normal EF and cor pulmonale was found. The patient also has a history of diabetes mellitus on oral agents and has a chronic diabetic foot wound followed at [facility] clinic. Hx of chronic A-fib on Eliquis. The admission 4 months ago also was for a severe anemia with hemoglobin of 6.9 for which he got 1 U blood transfused and outpatient endoscopy was advised. The patient presents to the ER with complaints of 2 days of fever and chills, with cough, possibly with sputum production and tachypnea. His O2 saturation was 86% on room air, and fever was 38.8 degrees C in the ER. His other work-up revealed a white blood count elevated at 20 with a left shift, no lactic acid level was done, BNP elevated at 450 (baseline is 340) and chest x-ray that showed pulmonary edema. Patient had blood cultures done and was started empirically on Zithromax and IV Ceftriaxone. His urinalysis is not back yet. His respiratory PCR panel is entirely negative. The emergency room provider called me and we spoke about this patient. The ED provider's impression was that of pneumonia despite no infiltrate seen on chest x-ray. My impression is that of fever from bronchitis, and a new CHF exacerbation producing hypoxia. This patient's CODE STATUS is full code, confirmed by ED provider speaking to his . Patient however tells me he does not want to be intubated. 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)) Respiratory: reports: Sleep apnea, CPAP use Neuro: reports: None Endocrine/Autoimmune: reports: Type 2 diabetes GI: reports: GERD : reports: None, Other HEENT: reports: None Psych: reports: None Musculoskeletal: reports: Chronic back pain Derm: reports: Other (Chronic wound of the right foot, followed at [facility]) MRSA Hx?: No - Past Surgical History Ortho: reports: Amputation Cardiovascular: reports: Vascular surgery, Other (MitraClip procedure) HEENT: reports: Cataracts Derm: reports: Skin cancer surgery - Family & Social History Family History Comment/Other: He does not know details, except that he mother is [place] and father of descent. Living arrangement: At home Living Situation: With spouse/s.o. Social History Notes: Lives with spouse at home. Ambulates with walker at baseline. Smokes 0- 1/4 pack per day. Minimal alcohol use. No illict drug use. - Substance History Use: Uses substance without health or social issues: Tobacco - POLST Patient has POLST: No Meds/Allgy - Home Medications Home Medications: Ambulatory Orders Medication Instructions Recorded Confirmed Metformin HCl 1,000 mg PO BID 06/07/15 06/05/22 Furosemide 40 mg PO BID 04/16/18 06/05/22 Acetaminophen 500 mg PO Q4HR PRN 11/05/18 06/05/22 Pregabalin [Lyrica] 75 mg PO DAILY 11/05/18 06/05/22 Apixaban [Eliquis] 5 mg PO BID 06/05/22 06/05/22 Cadexomer Iodine [Iodosorb] 10 gm TP .ONCE TO TWICE DAILY 06/05/22 06/05/22 Carvedilol [Coreg] 25 mg PO BID 06/05/22 06/05/22 Diclofenac Sodium 1% Gel [Voltaren 2 gm TOP BID PRN 06/05/22 06/05/22 Gel] Digoxin [Lanoxin] 250 mcg PO DAILY 06/05/22 06/05/22 Insulin Glargine,Hum.rec.anlog 20 unit SUBQ 06/05/22 06/05/22 [Basaglar Kwikpen U-100] Ipratropium [Atrovent] 1 puffs INH BID PRN 06/05/22 06/05/22 Manuka Honey 1 each TOP DAILY 06/05/22 06/05/22 Melatonin 30 mg PO HS 06/05/22 06/05/22 Mupirocin 2% Oint [Bactroban 2% 1 applic TOP .ONCE TO TWICE A DAY 06/05/22 06/05/22 Oint] Pregabalin [Lyrica] 150 mg PO HS 06/05/22 06/05/22 Saccharomyces Boulardii [Florastor] 250 mg PO DAILY PRN 06/05/22 06/05/22 - Allergies Allergies/Adverse Reactions: Allergies Allergy/AdvReac Type Severity Reaction Status Date / Time codeine AdvReac Intermediate Hallucinati Verified 06/06/22 11:16 ons guaiacol AdvReac Intermediate Hallucinati Verified 06/06/22 11:16 ons guaifenesin AdvReac Intermediate Hallucinati Verified 06/05/22 10:19 ons promethazine [From Phenergan] AdvReac Intermediate Hallucinati Verified 06/06/22 11:17 ons Review of Systems - Constitutional Constitutional: reports: Fever, Chills (He had a COVID booster shot 1 week ago.) - Cardiovascular Cariovascular: reports: Exertional dyspnea - Respiratory Respiratory: reports: Cough - Neurological Neurological: reports: Other (Patient is a poor historian with poor memory) - All Other Systems All Other Systems: reports: Reviewed and negative Exam - Vital Signs Reviewed Vital Signs: Yes Vital Signs: Vital Signs x48h Temp Pulse Resp BP Pulse Ox O2 Flow Rate 09/28/22 16:00 37.2 C 89 25 H 126/62 93 2 09/28/22 14:33 74 18 2 09/28/22 14:16 97 2 09/28/22 14:07 88 L 09/28/22 13:54 38.8 C H 67 18 115/42 L 97 - Physical Exam General Appearance: positive: No acute distress, Alert, Other (wearing O2 via n.c.) Eyes Bilateral: positive: Normal inspection, EOMI ENT: positive: ENT inspection nml, No signs of dehydration Neck: positive: Nml inspection, No JVD Respiratory: positive: No respiratory distress (on suppl O2), Rales (at both bases) Cardiovascular: positive: No murmur, Irregularly irregular Abdomen: positive: Non-tender, Nml bowel sounds, No distention Skin: positive: Warm, Dry Extremities: positive: Non-tender, Other (Left leg has venous stasis changes and 1+ edema to the knees right leg has griselda induration and 1+ edema to the knees. The right foot has a bandage over the dorsum.) Neurologic/Psychiatric: positive: Oriented x3, Motor nml, Other (Poor memory) Conclusion/Plan - Problem List (1) Acute respiratory failure with hypoxia Conclusion/Plan: This is probably multifactorial: From his CHF exacerbation which is seen on chest x-ray and from having bronchitis with sputum production Plan: Treat the underlying problems Continue with supplemental O2 keeping saturations greater than 92%, titrate O2 setting down as possible (2) Acute bronchitis Conclusion/Plan: Patient's respiratory panel is negative. Patient denied having any pulmonary disease but his medication list shows that he is on Atrovent inhaler. He still smokes. I suspect he has acute bronchitis, given the sputum and the fever Plan: We will continue with empiric IV antibiotics: P.o. Zithromax to decrease his IV load, and cont IV ceftriaxone We will order sputum for culture We will order DuoNeb 4 times daily as well as every 4 hours as needed Unfortunately this patient cannot get Mucinex to help with expectoration, since he has a side effect of hallucinations from getting guaifenesin. We will recheck his chest x-ray tomorrow for follow-up of pneumonia versus CHF (3) CHF exacerbation Conclusion/Plan: This patient just had an echo done 4 months ago showing preserved LVEF and proba ble diastolic dysfunction present. I suspect that the stress of the fever and infection put him into a heart failure exacerbation Patient was not given a large amount of fluid in the ER to treat an infection, because of this history of heart failure. His EKG is of concern. It shows (my interpretation): Atrial fib, [address] depressions in many leads inferior laterally with biphasic T waves in same leads. Since EKG from May 2022, these ST depressions are deeper and biphasic T waves are new. Plan: Given the new EKG changes, cycle troponins to eval for acute AL as the cause for the CHF exacerbation I will start IV twice daily Lasix, follow I's and O's and daily weights, BMP and magnesium and replace electrolytes if low We will continue with his other usual cardiac medications We will recheck his chest x-ray tomorrow for follow-up of pneumonia versus CHF Qualifiers: Heart failure type: diastolic Qualified Code(s): I50.33 - Acute on chronic diastolic (congestive) heart failure (4) Chronic atrial fibrillation Conclusion/Plan: Plan: We will keep the patient on his usual heart rate meds and anticoagulants Will order telemetry, monitor for uncontrolled rate (5) DM type 2 (diabetes mellitus, type 2) Conclusion/Plan: Plan: We will order a diabetic diet, fingerstick checks, sliding scale insulin coverage, hypoglycemia protocol Check A1c with a.m. labs We will continue with oral DM meds if he is on these, once his medication list is reconciled by pharmacy (6) Cor pulmonale Conclusion/Plan: This was seen on his most recent Echo done 4 months ago, and was apparently new. That Echo also showed a new PFO, which was caused when the interatrial puncture was done during the MitraClip procedure. Possibly the combination of the new PFO plus his NOEL has given him cor pulmonale Plan: Continue with his usual cardiac meds Start IV twice daily diuretics, follow I's and O's and daily weights (7) NOEL on CPAP Conclusion/Plan: Plan: We will order his home CPAP device to use here - Lab Results Fish Bones: 09/28/22 14:34 09/28/22 14:34 - Diagnostic Imaging Results Diagnostic Imaging Results: positive: Final report reviewed - EKG Results EKG Interpreted Independently: Yes EKG Comparison: Unchanged from prior EKG EKG Findings: Atrial fib, [address] depressions in all leads inferior laterally, with new biphasic T waves in same leads. Since EKG from May 2022, these ST depressions are deeper and the biphasic T waves are new. - Other Other Results/Comments: Attestation: The patient is expected to be hospitalized greater than 2 midnights and is expected to be discharged or transferred to another facility within 96 hours: Yes.
[2022-09-28] MEDS: SODIUM CHLORIDE FLUSH 0.9% 10 ML SYRINGE IVP SCH (20:57)
[2022-09-28] MEDS: metFORMIN 500 MG TABLET PO SCH (20:57)
[2022-09-28] MEDS: carvediloL 12.5 MG TABLET PO SCH (20:57)
[2022-09-28] MEDS: APIXABAN 5 MG TABLET PO SCH (21:00)
[2022-09-28] MEDS: IPRATROPIUM/ALBUTEROL 3 ML NEB INH SCH (21:06)
[2022-09-28] MEDS: INSULIN LISPRO 300 UNIT/3 ML PEN SUBQ SCH (21:46)
[2022-09-29 05:05] LABS: BASOPHILS % (AUTO) 0.3 %; EOSINOPHILS # (AUTO) 0.1 10^3/uL (0.0-0.7); EOSINOPHILS % (AUTO) 0.4 %; HCT - HEMATOCRIT 37.7 % (42.0-52.0); HGB - HEMOGLOBIN 11.5 g/dL (14.0-18.0); LYMPHOCYTES # (AUTO) 1.9 10^3/uL (1.5-3.5); LYMPHOCYTES % (AUTO) 16.9 %; MEAN CORPUSCULAR HEMOGLOBIN 26.5 pg (27.0-31.0); MEAN CORPUSCULAR HGB CONC 30.5 g/dL (32.0-36.0); MEAN CORPUSCULAR VOLUME 86.9 fL (80.0-94.0); MEAN PLATELET VOLUME 10.7 fL (7.4-11.4); MONOCYTES # (AUTO) 1.1 10^3/uL (0.0-1.0); MONOCYTES % (AUTO) 9.6 %; NEUTROPHILS # (AUTO) 8.1 10^3/uL (1.5-6.6); NEUTROPHILS % (AUTO) 72.4 %; PLT - PLATELET COUNT 138 10^3/uL (130-450); RED BLOOD COUNT 4.34 10^6/uL (4.70-6.10); RED CELL DISTRIBUTION WIDTH 19.9 % (12.0-15.0); WHITE BLOOD COUNT 11.1 x10^3/uL (4.8-10.8)
[2022-09-29 05:15] LABS: CALCIUM 8.7 mg/dL (8.5-10.3); CREATININE 1.1 mg/dL (0.6-1.2); MAGNESIUM 1.9 mg/dL (1.7-2.8); POTASSIUM 3.7 mmol/L (3.5-5.0)
[2022-09-29] MEDS ORDERED: FUROSEMIDE 20 MG/2 ML VIAL IVP SCH (06:00)
[2022-09-29] MEDS: IPRATROPIUM/ALBUTEROL 3 ML NEB INH SCH ×4 (07:30→18:28)
[2022-09-29] MEDS: INSULIN LISPRO 300 UNIT/3 ML PEN SUBQ SCH ×4 (08:03→21:22)
[2022-09-29] MEDS: ACETAMINOPHEN 325 MG TABLET PO PRN ×2 (08:04→17:56)
[2022-09-29] MEDS: carvediloL 12.5 MG TABLET PO SCH ×2 (08:04→21:22)
[2022-09-29] MEDS: APIXABAN 5 MG TABLET PO SCH ×2 (08:04→21:21)
[2022-09-29] MEDS: metFORMIN 500 MG TABLET PO SCH ×2 (08:04→21:21)
[2022-09-29] MEDS: AZITHROMYCIN 250 MG TABLET PO SCH (08:17)
[2022-09-29] MEDS: cefTRIAXone 1 GM in SODIUM CHLORIDE 0.9% MINIBAG 100 ML IV SCH (08:54)
[2022-09-29] MEDS: SODIUM CHLORIDE FLUSH 0.9% 10 ML SYRINGE IVP SCH ×3 (08:54→21:23)
[2022-09-29 09:06] LABS: ESTIMATED AVERAGE GLUCOSE 235 mg/dL (70-100); HEMOGLOBIN A1c% 9.8 % (4.27-6.07)
--- NOTE | 2022-09-29 09:14 | XRAY Report ---
PROCEDURE: Chest 1 View X-Ray INDICATIONS: F/U CHF vs pneumonia TECHNIQUE: One view of the chest was acquired. COMPARISON: 09/28/2022. FINDINGS: Surgical changes and devices: None. Lungs and pleura: No pleural effusions or pneumothorax. Mild pulmonary vascular congestion is again seen. No definite focal infiltrate. Mediastinum: Mediastinal contours appear normal. Heart size is normal. Bones and chest wall: No suspicious bony lesions. Overlying soft tissues appear unremarkable. IMPRESSION: Finding is suggestive of mild CHF. No definite focal infiltrate, pleural effusion or pneumothorax. Reviewed by: Jaguar Solano MD on 09/29/2022 9:13 AM PDT Approved by: Jaguar Solano MD on 09/29/2022 9:13 AM PDT Station ID: [id number]
--- NOTE | 2022-09-29 12:35 | PHARMACY PROGRESS NOTE ---
- Best Possible Medication History Admit Date and Time: 09/28/22 1612 Processed by: Pharmacy Medication History completed: Yes Patient Interview: Completed Secondary Source(s): Written medication list, Insurance records As the person ultimately responsible for medication therapy, providers are able to order a medication from an existing home medication list in [facility] via the "Reconcile Routine" prior to Confirmation of that medication by computer network support specialist. Such practice is discouraged except when the physician, in their clinical judgment, deems that a medical need exists for a medication without regard to previous use. per cecilia/tomás
[2022-09-29] MEDS ORDERED: ACETAMINOPHEN 500 MG TABLET PO PRN (13:37)
[2022-09-29] MEDS ORDERED: CAPSAICIN 0.025% CREAM 60 GM TUBE TOP PRN (13:37)
[2022-09-29] MEDS ORDERED: IPRATROPIUM INH PRN (13:37)
--- NOTE | 2022-09-29 13:37 | PROVIDER PROGRESS NOTE ---
Assessment/Plan - Problem List (1) Acute respiratory failure with hypoxia Assessment/Plan: This is probably multifactorial: From his CHF exacerbation which is seen on chest x-ray and from having bronchitis. By treating the underlying problems, his suppl O2 is able to be weaned down Plan: Continue with supplemental O2 keeping saturations greater than 92%, titrate to room air as possible Anticipate he will be discharged tomorrow (2) Acute bronchitis Conclusion/Plan: Patient's respiratory panel is negative. I suspect he has acute bronchitis, given the wet cough and the fever I rechecked his chest x-ray today for follow-up of pneumonia versus CHF, and there is indeed no infiltrate. He has made no sputum to send off for culture Plan: We will continue with empiric antibiotics: P.o. Zithromax and IV ceftriaxone Cont DuoNeb 4 times daily as well as every 4 hours as needed (3) CHF exacerbation Conclusion/Plan: This patient just had an Echo done 4 months ago showing preserved LVEF and probable diastolic dysfunction present. I suspect that the stress of the fever and infection put him into a heart failure exacerbation. His troponins were checked and did not double to indicate an acute NH Plan: I will change the IV twice daily Lasix, to just daily and back to po diuretic tomorrow We will continue with his other usual cardiac medications Qualifiers: Heart failure type: diastolic Qualified Code(s): I50.33 - Acute on chronic diastolic (congestive) heart failure (4) Chronic atrial fibrillation Conclusion/Plan: Plan: We will keep the patient on his usual heart rate meds and anticoagulants Cont telemetry, monitor for uncontrolled rate (5) DM type 2 (diabetes mellitus, type 2) Conclusion/Plan: Today the is in the room and can give me some details: He is not on a diabetic diet but he gets insulin and an oral agent. His glucoses are running in the 200s because he is not yet on his nightly Lantus insulin. His A1c came back at 9.8. The poor glu control was explained by him not being on a diabetic diet Plan: Cont diabetic diet, fingerstick checks, sliding scale insulin coverage, hypoglycemia protocol I have resumed his usual Lantus insulin at night and oral diabetic agent today (6) Cor pulmonale Conclusion/Plan: This was seen on his most recent Echo done 4 months ago, and was apparently new. That Echo also showed a new PFO, which was caused when the interatrial puncture was done during the MitraClip procedure. Possibly the combination of the new PFO plus his NOEL has given him cor pulmonale Plan: Continue with his usual cardiac meds I will change the IV twice daily Lasix, to just daily and back to po diuretic tomorrow (7) NOEL on CPAP Conclusion/Plan: Plan: We will order his home CPAP device to use here - Current Meds Current Meds: Current Medications Generic Name Dose Route Start Last Admin Trade Name Freq PRN Reason Stop Dose Admin Acetaminophen 650 mg 09/28/22 17:13 09/29/22 08:04 Acetaminophen 325 Mg Tablet PO 650 mg Q4HR PRN Administration Pain 1 to 4, or Fever Albuterol/Ipratropium 3 ml 09/28/22 19:00 09/29/22 11:29 Ipratropium/Albuterol 3 Ml Neb INH 3 ml RTQID ALEX Administration Apixaban 5 mg 09/28/22 21:00 09/29/22 08:04 Apixaban 5 Mg Tablet PO 5 mg BID ALEX Administration Azithromycin 250 mg 09/29/22 09:00 09/29/22 08:17 Azithromycin 250 Mg Tablet PO 10/03/22 00:01 250 mg DAILY ALEX Administration Carvedilol 25 mg 09/28/22 21:00 09/29/22 08:04 Carvedilol 12.5 Mg Tablet PO 25 mg BID ALEX Administration Furosemide 20 mg 09/29/22 06:00 09/29/22 06:17 Furosemide 20 Mg/2 Ml Vial IVP 20 mg BIDDIURETIC ALEX Administration Ceftriaxone Sodium 1 gm/ 100 mls @ 200 mls/hr 09/29/22 09:00 09/29/22 09:30 Sodium Chloride IV Infused DAILY ALEX Infusion Insulin Human Lispro 1 - 5 unit 09/28/22 21:00 09/29/22 12:03 Insulin Lispro 300 Unit/3 Ml Pen SUBQ 2 unit 0800,1200,1700,2100 ALEX Administration Protocol Metformin HCl 1,000 mg 09/28/22 21:00 09/29/22 08:04 Metformin 500 Mg Tablet PO 1,000 mg BID ALEX Administration Sodium Chloride 10 ml 09/29/22 01:00 09/29/22 08:54 Sodium Chloride Flush 0.9% 10 Ml Syringe IVP 10 ml 0100,0900,1700 ALEX Administration - Lab Result Fish Bone Diagrams: 09/29/22 04:41 09/29/22 04:41 - Additional Planning My Orders: My Active Orders 09/28/22 17:13 Activity Orders [RC] Q2HR IO [RC] IOSHIFT Incentive Spirometry - RT [RC] .tid Initiate Bowel Care Protocol [RC] .protocol Initiate Bronchodialator Vivienne [RC] .PROTOCOL Initiate Line Care Protocol [RC] QSHIFT Initiate Lung Inflation Protoc [RC] .PROTOCOL Initiate Personal Care Protoco [RC] .protocol Oxygen Therapy [RC] .PRN Telemetry- [RC] Q4HR Vital Signs [RC] Q4HR Acetaminophen [Tylenol] 650 mg PO Q4HR PRN Ondansetron Inj [Zofran Inj] 4 mg IVP Q6HR PRN Sodium Chloride Flush 0.9% [Normal Saline Flush 0.9%] 10 ml IVP PRN PRN Code Status [OTHERS] Routine Condition of Patient [OTHERS] Routine DVT Prophylaxis [OTHERS] Routine 09/28/22 17:15 Daily Weight [RC] 0600 IV Insert [RC] .ONCE 09/28/22 17:16 Ipratropium/Albuterol [Duoneb] 3 ml INH Q4HR PRN 09/28/22 17:20 Blood Glucose Checks - Eating [RC] 0800,1200,1700,2100 Initiate Hypoglycemia Protocol [RC] .protocol 09/28/22 18:07 Home CPAP/BiPAP [RC] .ONCE 09/28/22 19:00 Ipratropium/Albuterol [Duoneb] 3 ml INH RTQID 09/28/22 21:00 Apixaban [Eliquis] 5 mg PO BID Insulin Lispro [Humalog Kwikpen U-100] 1 - 5 unit SUBQ 0800,1200,1700,2100 carvediloL [Coreg] 25 mg PO BID metFORMIN [Glucophage] 1,000 mg PO BID 09/28/22 21:13 Nebulizer [Nebulizer/MDI Tx.] [RC] QID 09/29/22 Evaluate and Treat OT [OT] Routine Evaluate and Treat PT [PT] Routine 09/29/22 01:00 Sodium Chloride Flush 0.9% [Normal Saline Flush 0.9%] 10 ml IVP 0100,0900,1700 09/29/22 06:00 FUROSEMIDE INJ 20mg VIAL [LASIX INJ 20mg VIAL] 20 mg IVP BIDDIURETIC 09/29/22 09:00 Azithromycin [Zithromax] 250 mg PO DAILY cefTRIAXone [Rocephin] 1 gm Sodium Chloride 0.9% Minibag [Normal Saline 0.9% Minibag] 100 ml IV DAILY Subjective - Subjective Patient Reports: Feeling Better (Still has a wet cough, not productive. Does not feel short of breath. Has energy and is motivated to work with PT) Objective Vital Signs: Vital Signs - 24 hr 09/28/22 09/28/22 09/28/22 13:54 14:07 14:16 Temperature 38.8 C H Heart Rate 67 Heart Rate [ Brachial] Heart Rate [ Monitoring electrodes] Heart Rate [ Sitting] Respiratory 18 Rate Blood Pressure 115/42 L Blood Pressure [Left Brachial artery] Blood Pressure [Right Brachial artery] Blood Pressure [Sitting] O2 Saturation 97 88 L 97 If not protocol 2 : Oxygen Flow, liters/minute 09/28/22 09/28/22 09/28/22 14:33 16:00 18:08 Temperature 37.2 C 36.5 C Heart Rate 74 89 Heart Rate [ 106 H Brachial] Heart Rate [ Monitoring electrodes] Heart Rate [ Sitting] Respiratory 18 25 H 20 Rate Blood Pressure 126/62 Blood Pressure 114/62 [Left Brachial artery] Blood Pressure [Right Brachial artery] Blood Pressure [Sitting] O2 Saturation 93 92 If not protocol 2 2 2 : Oxygen Flow, liters/minute 09/28/22 09/28/22 09/28/22 18:19 20:36 21:12 Temperature 36.5 C Heart Rate Heart Rate [ 66 Brachial] Heart Rate [ Monitoring electrodes] Heart Rate [ Sitting] Respiratory 22 Rate Blood Pressure Blood Pressure 120/62 [Left Brachial artery] Blood Pressure [Right Brachial artery] Blood Pressure [Sitting] O2 Saturation 97 If not protocol 2 2 2 : Oxygen Flow, liters/minute 09/28/22 09/28/22 09/29/22 21:14 23:50 04:08 Temperature 36.6 C 37.0 C Heart Rate Heart Rate [ 56 L Brachial] Heart Rate [ 75 Monitoring electrodes] Heart Rate [ Sitting] Respiratory 20 21 20 Rate Blood Pressure Blood Pressure [Left Brachial artery] Blood Pressure 119/54 L 122/67 [Right Brachial artery] Blood Pressure [Sitting] O2 Saturation 96 97 If not protocol 2 2 2 : Oxygen Flow, liters/minute 09/29/22 09/29/22 09/29/22 07:32 07:41 10:45 Temperature 36.8 C Heart Rate 72 Heart Rate [ 78 Brachial] Heart Rate [ Monitoring electrodes] Heart Rate [ 62 Sitting] Respiratory 20 22 Rate Blood Pressure Blood Pressure [Left Brachial artery] Blood Pressure 122/65 [Right Brachial artery] Blood Pressure 117/61 [Sitting] O2 Saturation 96 If not protocol 1 2 : Oxygen Flow, liters/minute 09/29/22 09/29/22 11:33 12:41 Temperature 36.4 C L Heart Rate 100 Heart Rate [ Brachial] Heart Rate [ 72 Monitoring electrodes] Heart Rate [ Sitting] Respiratory 20 20 Rate Blood Pressure Blood Pressure [Left Brachial artery] Blood Pressure 109/55 L [Right Brachial artery] Blood Pressure [Sitting] O2 Saturation 96 If not protocol 1 : Oxygen Flow, liters/minute Oxygen O2 Source Room air Oxygen Flow Rate 2 I&O (Last 24 Hrs): Intake and Output Totals x24h 09/27/22 09/28/22 09/29/22 23:59 23:59 23:59 Intake Total 790 340 Balance 790 340 General: Alert, Oriented x3 HEENT: Mucous membr. moist/pink Neck: Supple, No JVD Neuro: Alert, Non Focal Cardiovascular: No murmurs Respiratory: No respiratory distress, Breath sounds nml Abdomen: Normal bowel sounds, Soft Extremities: No clubbing, No edema, No tenderness/swelling - Results Results: Laboratory Results WBC 11.1 x10^3/uL (4.8-10.8) H 09/29/22 04:41 RBC 4.34 10^6/uL (4.70-6.10) L 09/29/22 04:41 Hgb 11.5 g/dL (14.0-18.0) L 09/29/22 04:41 Hct 37.7 % (42.0-52.0) L 09/29/22 04:41 MCV 86.9 fL (80.0-94.0) 09/29/22 04:41 MCH 26.5 pg (27.0-31.0) L 09/29/22 04:41 MCHC 30.5 g/dL (32.0-36.0) L 09/29/22 04:41 RDW 19.9 % (12.0-15.0) H 09/29/22 04:41 Plt Count 138 10^3/uL (130-450) 09/29/22 04:41 MPV 10.7 fL (7.4-11.4) 09/29/22 04:41 Neut # (Auto) 8.1 10^3/uL (1.5-6.6) H 09/29/22 04:41 Lymph # (Auto) 1.9 10^3/uL (1.5-3.5) 09/29/22 04:41 [place] # (Auto) 1.1 10^3/uL (0.0-1.0) H 09/29/22 04:41 Eos # (Auto) 0.1 10^3/uL (0.0-0.7) 09/29/22 04:41 Baso # (Auto) 0.0 10^3/uL (0.0-0.1) 09/29/22 04:41 Absolute Nucleated RBC 0.00 x10^3/uL 09/29/22 04:41 Total Counted 100 09/28/22 14:34 Band Neuts % (Manual) 1 % (0-10) 09/28/22 14:34 Reactive Lymphs % (Man) 7 % 09/28/22 14:34 Abnorm Lymph % (Manual) 0 % 09/28/22 14:34 Nucleated RBC % 0.0 /100WBC 09/29/22 04:41 Neutrophils # (Manual) 15.5 10^3/uL (1.5-6.6) H 09/28/22 14:34 Lymphocytes # (Manual) 2.2 10^3/uL (1.5-3.5) 09/28/22 14:34 Monocytes # (Manual) 2.2 10^3/uL (0.0-1.0) H 09/28/22 14:34 Eosinophils # (Manual) 0.0 10^3/uL (0-0.7) 09/28/22 14:34 Basophils # (Manual) 0.2 10^3/uL (0-0.1) H 09/28/22 14:34 Differential Comment MANUAL DIFFERENTIAL 09/28/22 14:34 Platelet Estimate NORMAL (130-450,000) (NORMAL) 09/28/22 14:34 Platelet Morphology NORMAL APPEARANCE (NORMAL) 09/28/22 14:34 RBC Morph Micro Appear 2+ ANISOCYTOSIS (NORMAL) 09/28/22 14:34 Sodium 138 mmol/L (135-145) 09/29/22 04:41 Potassium 3.7 mmol/L (3.5-5.0) 09/29/22 04:41 Chloride 102 mmol/L (101-111) 09/29/22 04:41 Carbon Dioxide 29 mmol/L (21-32) 09/29/22 04:41 Anion Gap 7.0 (6-13) 09/29/22 04:41 BUN 30 mg/dL (6-20) H 09/29/22 04:41 Creatinine 1.1 mg/dL (0.6-1.2) 09/29/22 04:41 Estimated GFR (MDRD) 65 (>89) L 09/29/22 04:41 Glucose 196 mg/dL (70-100) H 09/29/22 04:41 POC Whole Bld Glucose 221 mg/dL (70 - 100) H 09/29/22 11:22 Estimat Average Glucose 235 mg/dL (70-100) H 09/29/22 04:41 Hemoglobin A1c % 9.8 % (4.27-6.07) H 09/29/22 04:41 Calcium 8.7 mg/dL (8.5-10.3) 09/29/22 04:41 Magnesium 1.9 mg/dL (1.7-2.8) 09/29/22 04:41 Total Bilirubin 0.7 mg/dL (0.2-1.0) 09/28/22 14:34 AST 32 IU/L (10-42) 09/28/22 14:34 ALT 24 IU/L (10-60) 09/28/22 14:34 Alkaline Phosphatase 89 IU/L (42-121) 09/28/22 14:34 Troponin I High Sens 81.3 ng/L (2.3-19.7) H* 09/28/22 20:54 B-Natriuretic Peptide 298 pg/mL (5-100) H 09/29/22 04:41 Total Protein 7.1 g/dL (6.7-8.2) 09/28/22 14:34 Albumin 3.6 g/dL (3.2-5.5) 09/28/22 14:34 Globulin 3.5 g/dL (2.1-4.2) 09/28/22 14:34 Albumin/Globulin Ratio 1.0 (1.0-2.2) 09/28/22 14:34 Lipase 25 U/L (22-51) 09/28/22 14:34 Nasal Adenovirus (PCR) NOT DETECTED 09/28/22 14:31 Nasal B. parapertussis DNA (PCR) NOT DETECTED 09/28/22 14:31 Nasal Coronavir 229E PCR NOT DETECTED 09/28/22 14:31 Nasal Coronavir HKU1 PCR NOT DETECTED 09/28/22 14:31 Nasal Coronavir NL63 PCR NOT DETECTED 09/28/22 14:31 Nasal Coronavir OC43 PCR NOT DETECTED 09/28/22 14:31 Nasal Enterovir/Rhinovir PCR NOT DETECTED 09/28/22 14:31 Nasal Influenza B PCR NOT DETECTED 09/28/22 14:31 Nasal Influenza A PCR NOT DETECTED 09/28/22 14:31 Nasal Parainfluen 1 PCR NOT DETECTED 09/28/22 14:31 Nasal Parainfluen 2 PCR NOT DETECTED 09/28/22 14:31 Nasal Parainfluen 3 PCR NOT DETECTED 09/28/22 14:31 Nasal Parainfluen 4 PCR NOT DETECTED 09/28/22 14:31 Nasal RSV (PCR) NOT DETECTED 09/28/22 14:31 Nasal B.pertussis DNA PCR NOT DETECTED 09/28/22 14:31 Nasal C.pneumoniae (PCR) NOT DETECTED 09/28/22 14:31 Nam Human Metapneumo PCR NOT DETECTED 09/28/22 14:31 Nasal M.pneumoniae (PCR) NOT DETECTED 09/28/22 14:31 Nasal SARS-CoV-2 (PCR) NOT DETECTED 09/28/22 14:31 Last Dose Date UNKNOWN 09/28/22 14:34 Last Dose Time UNKNOWN 09/28/22 14:34 Digoxin 1.5 ng/mL 09/28/22 14:34 - Procedures Procedures: Procedures REPLACEMENT OF LEFT LENS WITH SYNTH SUB, PERC APPROACH (07/06/15) REPLACEMENT OF RIGHT LENS WITH SYNTH SUB, PERC APPROACH (06/08/15)
[2022-09-29] MEDS: hydrALAZINE 10 MG TABLET PO SCH ×2 (15:53→21:21)
[2022-09-29] MEDS ORDERED: INSULIN GLARGINE-YFGN 300 UNIT/3 ML PEN SUBQ SCH (21:00)
[2022-09-29] MEDS: DICLOFENAC SODIUM 1% GEL 50 GM TUBE TOP PRN (21:36)
[2022-09-30] MEDS: DICLOFENAC SODIUM 1% GEL 50 GM TUBE TOP PRN (05:31)
[2022-09-30] MEDS: hydrALAZINE 10 MG TABLET PO SCH (06:19)
[2022-09-30] MEDS ORDERED: glipiZIDE 5 MG TABLET PO SCH (07:00)
[2022-09-30] MEDS: IPRATROPIUM/ALBUTEROL 3 ML NEB INH SCH (07:44)
[2022-09-30 07:47] VITALS: BP 143/66
[2022-09-30] MEDS: cefTRIAXone 1 GM in SODIUM CHLORIDE 0.9% MINIBAG 100 ML IV SCH (08:24)
[2022-09-30] MEDS: INSULIN LISPRO 300 UNIT/3 ML PEN SUBQ SCH (08:25)
[2022-09-30] MEDS: metFORMIN 500 MG TABLET PO SCH (08:26)
[2022-09-30] MEDS: carvediloL 12.5 MG TABLET PO SCH (08:27)
[2022-09-30] MEDS: APIXABAN 5 MG TABLET PO SCH (08:27)
[2022-09-30] MEDS: AZITHROMYCIN 250 MG TABLET PO SCH (08:27)
[2022-09-30] MEDS ORDERED: ISOSORBIDE MONONITRATE ER 30 MG TABLET PO SCH (09:00)
[2022-09-30] MEDS ORDERED: DIGOXIN 125 MCG TABLET PO SCH (09:00)
[2022-09-30] MEDS ORDERED: BUMETANIDE 1 MG TABLET PO SCH (09:00)
[2022-09-30] MEDS: SODIUM CHLORIDE FLUSH 0.9% 10 ML SYRINGE IVP SCH (09:30)
--- NOTE | 2022-09-30 10:14 | Discharge Plan ---
Discharge Plan Problem Reviewed?: Yes Disposition: Home, Self Care Condition: Stable Diet: Diabetic Activity Restrictions: Activity as Tolerated Assistance Devices: Cane Health Concerns: You were hospitalized because of being short of breath and having a very low oxygen level. We found that you hde bronchitis probably from a virus, and also had heart failure with fluid accumulation in the lungs. The lung fluid improved with getting diuretics and your oxygen supplements have been discontinued. You are being discharged home. Please resume your usual pre-hospital medications. You should be eating a low-salt diet to help prevent fluid retention and a diabetic diet. Plan of Treatment: As above. Care Goals: Improvement in symptoms and stabilization are the goals. Assessment: The patient understands and is agreeable with the plan. Additional Instructions or Follow Up instructions: If you have new or worsening symptoms, call your primary care provider for advice, or come to the ER No Smoking: If you smoke, Please STOP! Call for help.
--- NOTE | 2022-09-30 10:16 | DISCHARGE SUMMARY ---
Discharge Summary Admit Date: 09/28/22 Discharge Date: 09/30/22 Discharging Provider: Dr Amelie Araya Primary Care Provider: Dr Kerry Lopez Condition at Discharge: Stable Discharge Disposition: 01 Home, Self Care - [facility] History of Present Illness: This is a 77-year-old white male with a history of MitraClip done in 2021 and resultant PFO with [id number] shunt, history of systolic heart failure but Echos since 2019 have shown a normal EF. Patient was admitted here just 4 months ago for MATTIE and hyperkalemia, required Lokelma, D50 and insulin. An Echo was done then that confirmed the normal EF and cor pulmonale was found. The patient also has a history of diabetes mellitus on oral agents and has a chronic diabetic foot wound followed at [facility]. Hx of chronic A-fib on Eliquis. The admission 4 months ago also was for a severe anemia with hemoglobin of 6.9 for which he got 1 U blood transfused and outpatient endoscopy was advised. The patient presents to the ER with complaints of 2 days of fever and chills, with cough, possibly with sputum production and tachypnea. His O2 saturation was 86% on room air, and fever was 38.8 degrees C in the ER. His other work-up revealed a white blood count elevated at 20 with a left shift, no lactic acid level was done, BNP elevated at 450 (baseline is 340) and chest x-ray that showed pulmonary edema. Patient had blood cultures done and was started empirically on Zithromax and IV Ceftriaxone. His urinalysis is not back yet. His respiratory PCR panel is entirely negative. The emergency room provider called me and we spoke about this patient. The ED provider's impression was that of pneumonia despite no infiltrate seen on chest x-ray. My impression is that of fever from bronchitis, and a new CHF exacerbation producing hypoxia. This patient's CODE STATUS is full code, confirmed by ED provider speaking to his . Patient however tells me he does not want to be intubated. - HOSPITAL COURSE Hospital Course: (1) Acute respiratory failure with hypoxia This was felt to be multifactorial: from his CHF exacerbation and from having bronchitis. We treated each underlying problems, and his suppl O2 is able to be weaned down to off unexpectedly quickly. (2) Acute bronchitis Patient's respiratory panel was negative. His symptoms were consistent with acute bronchitis, given the wet cough and the fever. CXR showed no infiltrate. He made no sputum to send off for culture. He was put on empiric antibiotics: P.o. Zithromax and IV ceftriaxone, plus DuoNeb scheduled and as needed (3) CHF exacerbation This patient just had an Echo done 4 months ago showing preserved LVEF and probable diastolic dysfunction present. Possibly the stress from the fever and infection put him into a heart failure exacerbation. His troponins were checked and did not double to indicate an acute CA. He was kept on his usual cardiac meds and put on iv Lasix and improved. (4) Chronic atrial fibrillation We continued his usual heart rate meds and anticoagulant (5) DM type 2 (diabetes mellitus, type 2) The gave me details: He is not on a diabetic diet but he gets Insulin and an oral agent. His glucoses were running in the 200s here. His A1c came back at 9.8. The poor glu control was likely from the infection and due to not being on a diabetic diet at home. He and his did not plan to change that diet. (6) Cor pulmonale This was seen on his most recent Echo done 4 months ago, and was new then. That Echo also showed a new PFO, which was likely caused when the interatrial puncture was done during the MitraClip procedure. Possibly the combination of the new PFO plus his NOEL has given him cor pulmonale (7) NOEL on CPAP He used his home CPAP device here. - ALLERGIES Allergies/Adverse Reactions: Allergies Allergy/AdvReac Type Severity Reaction Status Date / Time codeine AdvReac Intermediate Hallucinati Verified 06/06/22 11:16 ons guaiacol AdvReac Intermediate Hallucinati Verified 06/06/22 11:16 ons guaifenesin AdvReac Intermediate Hallucinati Verified 06/05/22 10:19 ons promethazine [From Phenergan] AdvReac Intermediate Hallucinati Verified 06/06/22 11:17 ons - MEDICATIONS Home Medications: Ambulatory Orders Medication Instructions Recorded Confirmed Metformin HCl 1,000 mg PO BIDWM 06/07/15 09/29/22 Pregabalin [Lyrica] 75 mg PO DAILY 11/05/18 09/29/22 Apixaban [Eliquis] 5 mg PO BID 06/05/22 09/29/22 Carvedilol [Coreg] 25 mg PO BIDWM 06/05/22 09/29/22 Diclofenac Sodium 1% Gel [Voltaren 2 gm TOP QID PRN 06/05/22 09/29/22 Gel] Insulin Glargine,Hum.rec.anlog 20 unit SUBQ HS 06/05/22 09/29/22 [Basaglar Kwikpen U-100] Ipratropium [Atrovent] 1 puffs INH TID PRN 06/05/22 09/29/22 Melatonin 10 mg PO QPM 06/05/22 09/29/22 Pregabalin [Lyrica] 150 mg PO HS 06/05/22 09/29/22 Acetaminophen [Tylenol] 500 mg PO Q6HR PRN 09/29/22 09/29/22 Bumetanide 4 mg PO DAILY 09/29/22 09/29/22 Capsaicin 0.025% Cream [Trixaicin 1 applic TOP QID PRN 09/29/22 09/29/22 0.025% Cream] Digoxin [Lanoxin] 250 mcg PO DAILY 09/29/22 09/29/22 Isosorbide Mononitrate ER [Imdur] 30 mg PO DAILY 09/29/22 09/29/22 Lidocaine Topical 4% Soln 2 ml TOP DAILY PRN 09/29/22 09/29/22 [Xylocaine Topical 4% Soln] Mometasone Furoate [Asmanex] 2 inh INH QPM 09/29/22 09/29/22 Nystatin/Triamcin 1 gm TOP BID 09/29/22 09/29/22 [Nystatin-Triamcinolone Ointm] glipiZIDE [Glucotrol] 5 mg PO QDAC 09/29/22 09/29/22 hydrALAZINE [Apresoline] 10 mg PO TID 09/29/22 09/29/22 - PHYSICAL EXAM AT DISCHARGE General Appearance: positive: No acute distress, Alert, Other (Very tall elderly man, with poor memory.) Eyes Bilateral: positive: Normal inspection, EOMI ENT: positive: ENT inspection nml, No signs of dehydration Neck: positive: Nml inspection, No JVD Respiratory: positive: No respiratory distress, Breath sounds nml Cardiovascular: positive: No murmur Abdomen: positive: Non-tender, No distention Skin: positive: Warm, Dry Extremities: positive: Non-tender, No pedal edema Neurologic/Psychiatric: positive: Oriented x3, Motor nml, Other (Poor memory) - LABS Result Diagrams: 09/29/22 04:41 09/29/22 04:41 - DIAGNOSTIC IMAGING Diagnostic Imaging Results: Final report reviewed - FOLLOW UP Follow Up: See PCP in 1-2 weeks for a hospital follow-up visit. - TIME SPENT Time Spent in Discharge (Minutes): 35
== END 2022-09-30 10:52 | disposition home or self-care (01) | DRG 189 ==
LOC: EDUNIT# → ED 13:41 → MS2 17:13
PROVIDERS: ADMIT Internal Medicine; ATTEND Internal Medicine
DX: J18.9 Pneumonia, unspecified organism (principal); R09.02 Hypoxemia; J96.01 Acute respiratory failure with hypoxia; I50.9 Heart failure, unspecified; I50.33 Acute on chronic diastolic (congestive) heart failure; I48.20 Chronic atrial fibrillation, unspecified; Q21.12 Patent foramen ovale; I48.91 Unspecified atrial fibrillation; Z20.822 Contact with and (suspected) exposure to COVID-19; J20.9 Acute bronchitis, unspecified; E11.9 Type 2 diabetes mellitus without complications; I27.81 Cor pulmonale (chronic); G47.33 Obstructive sleep apnea (adult) (pediatric); Z79.4 Long term (current) use of insulin; Z79.01 Long term (current) use of anticoagulants; Z79.84 Long term (current) use of oral hypoglycemic drugs
CPT/HCPCS: 36415; 71045; 80048; 80053; 80162; 83036; 83690; 83735; 83880; 84484; 85025; 87040; 87070; 87077; 87205; 87633; 93005; 94640; 96365; 96375; 99285; A9270; J1815

== ENCOUNTER 2023-02-02 04:47 | Outpatient (CLI) | payer MEDICARE, BC | END 2023-02-02 23:59 | disposition critical access hospital (66) | LOC: EMS 04:47 | DX: R06.02 Shortness of breath (principal); R05.9 Cough, unspecified | CPT/HCPCS: A0425; A0427 ==

== ENCOUNTER 2023-02-02 05:12 | Observation (INO) | payer MEDICARE, BC ==
--- NOTE | 2023-02-02 05:10 | ED Physician Documentation ---
PD HPI DYSPNEA - Stated complaint Stated Complaint: SOA - History obtained from History obtained from: Patient, EMS - Additional information Additional information: BIBA. HPI from EMS as well as from patient. Patient developed gradual onset of shortness of breath last night when walking around his house getting ready for bed. Patient says this was at approximately 11 PM. 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 He says he wanted to get up to use the bathroom but was too short of breath to even get out of bed. Patient's past medical history includes COPD, and although he uses CPAP at night, he does not have supplemental oxygen use otherwise. Patient tells me he does have inhalers but did not use them tonight. He does not have a nebulizer at home. EMS says that on their initial evaluation, patient was 86% pulse ox on room air. He was administered a DuoNeb en route, pulse ox is 99% on 6 L/min nasal cannula on arrival. Patient says he has had occasional, moist but none-productive cough for the past 1 or 2 days. He denies any fevers at home. He has right leg swelling although he says this is chronic and not any different than it has been. Patient denies any chest discomfort including chest pain/tightness/squeezing/pressure. Review of Systems Constitutional: denies: Fever, Chills, Sweats Cardiac: reports: Pedal edema (chronic). denies: Chest pain / pressure, Palpitations Respiratory: reports: Dyspnea, Cough. denies: Hemoptysis, Wheezing GI: reports: Bloody / black stool (denies bloody stool but has occasionally noted black stool (patient takes iron pills)), Reviewed and negative. denies: Abdominal Pain Musculoskeletal: reports: Extremity swelling (RLE (chronic)) Neurologic: reports: Headache (chronic). denies: Generalized weakness, Focal weakness, Numbness PD PAST MEDICAL HISTORY - Past Medical History Past Medical History: Yes Cardiovascular: Congestive heart failure, Hypertension, Peripheral Vascular Disease, Atrial fibrillation Endocrine/Autoimmune: Type 1 diabetes - Present Medications Home Medications: Ambulatory Orders Medication Instructions Recorded Confirmed Metformin HCl 1,000 mg PO BIDWM 06/07/15 02/02/23 Pregabalin [Lyrica] 75 mg PO DAILY 11/05/18 02/02/23 Apixaban [Eliquis] 5 mg PO BID 06/05/22 02/02/23 Diclofenac Sodium 1% Gel [Voltaren 2 gm TOP QID PRN 06/05/22 02/02/23 Gel] Insulin Glargine,Hum.rec.anlog 20 unit SUBQ HS 06/05/22 02/02/23 [Basaglar Kwikpen U-100] Ipratropium [Atrovent] 1 puffs INH TID PRN 06/05/22 02/02/23 Melatonin 10 mg PO QPM 06/05/22 02/02/23 Pregabalin [Lyrica] 150 mg PO HS 06/05/22 02/02/23 carvediloL [Coreg] 25 mg PO BIDWM 06/05/22 02/02/23 Acetaminophen [Tylenol] 500 mg PO Q6HR PRN 09/29/22 02/02/23 Bumetanide 4 mg PO DAILY 09/29/22 02/02/23 Capsaicin 0.025% Cream [Trixaicin 1 applic TOP QID PRN 09/29/22 02/02/23 0.025% Cream] Digoxin [Lanoxin] 250 mcg PO DAILY 09/29/22 02/02/23 Isosorbide Mononitrate ER [Imdur] 30 mg PO DAILY 09/29/22 02/02/23 Lidocaine Topical 4% Soln 2 ml TOP DAILY PRN 09/29/22 02/02/23 [Xylocaine Topical 4% Soln] Mometasone Furoate [Asmanex] 2 inh INH QPM 09/29/22 02/02/23 Nystatin/Triamcin 1 gm TOP BID 09/29/22 02/02/23 [Nystatin-Triamcinolone Ointm] glipiZIDE [Glucotrol] 5 mg PO QDAC 09/29/22 02/02/23 hydrALAZINE [Apresoline] 10 mg PO TID 09/29/22 02/02/23 - Allergies Allergies/Adverse Reactions: Allergies Allergy/AdvReac Type Severity Reaction Status Date / Time codeine AdvReac Intermediate Hallucinati Verified 02/02/23 05:28 ons guaiacol AdvReac Intermediate Hallucinati Verified 02/02/23 05:28 ons guaifenesin AdvReac Intermediate Hallucinati Verified 02/02/23 05:28 ons promethazine [From Phenergan] AdvReac Intermediate Hallucinati Verified 02/02/23 05:28 ons PD ED PE NORMAL - Vitals Vital signs reviewed: Yes - General General: Alert and oriented X 3, No acute distress, Well developed/nourished - Neck Neck: Supple, no meningeal sign - Respiratory Respiratory: No respiratory distress - Abdomen Abdomen: Soft, Non tender, Non distended PD ED PE EXPANDED - Respiratory Respiratory: Other (scattered rhonchi, most prominent in right mid/lower lung [place]) - Extremities Extremities: Pedal edema bilateral (RLE significantly greater than LLE) Results - Vitals Vitals: Vital Signs - 24 hr 02/02/23 02/02/23 02/02/23 05:10 05:33 05:35 Temperature 36.4 C L Heart Rate 83 Respiratory 15 Rate Blood Pressure 121/62 O2 Saturation 100 90 L 97 If not protocol 2 : Oxygen Flow, liters/minute Oxygen O2 Source Nasal cannula Oxygen Flow Rate 2 - EKG (time done) No standard instances EKG releavant findings:: EKG personally interpreted by author of this note. Relevant findings are: Rate: Rate (enter#) (77) Rhythm: Atrial fibrillation [place]: Normal QRS: Normal Ischemia: ST depression, T wave inversion Other comments: Other comments (ST depresions and inverted T waves V4-V6, I, aVL; possible digoxin effect) - Labs Labs: Microbiology 02/02/23 06:15 Occult Blood - Final Stool Laboratory Tests 02/02/23 02/02/23 02/02/23 05:24 05:24 05:24 WBC 9.6 RBC 2.71 L Hgb 5.3 L* Hct 20.5 L MCV 75.6 L MCH 19.6 L MCHC 25.9 L RDW 19.1 H Plt Count 210 MPV 11.0 Neut # (Auto) Not Reportable Lymph # (Auto) Not Reportable Pratt # (Auto) Not Reportable Eos # (Auto) Not Reportable Baso # (Auto) Not Reportable Absolute Nucleated RBC Not Reportable Total Counted 100 Band Neuts % (Manual) 1 Abnorm Lymph % (Manual) 5 Nucleated RBC % Not Reportable Neutrophils # (Manual) 5.6 Lymphocytes # (Manual) 3.3 Monocytes # (Manual) 0.6 Eosinophils # (Manual) 0.2 Basophils # (Manual) 0.0 Differential Comment MANUAL DIFFERENTIAL WBC Morphology NORMAL APPEARANCE Platelet Estimate NORMAL (130-450,000) Platelet Morphology NORMAL APPEARANCE RBC Morph Micro Appear 3+ HYPOCHROMASIA Sodium 134 L Potassium 4.6 H Chloride 102 Carbon Dioxide 23 Anion Gap 9.0 BUN 47 H Creatinine 1.5 H Estimated GFR (MDRD) 45 L Glucose 255 H Calcium 8.9 Total Bilirubin 0.7 AST 19 ALT 9 L Alkaline Phosphatase 101 Troponin I High Sens 28.9 H* B-Natriuretic Peptide 267 H Total Protein 6.2 L Albumin 3.7 Globulin 2.5 Albumin/Globulin Ratio 1.5 Lipase 21 Nasal Adenovirus (PCR) Nasal B. parapertussis DNA (PCR) Nasal Coronavir 229E PCR Nasal Coronavir HKU1 PCR Nasal Coronavir NL63 PCR Nasal Coronavir OC43 PCR Nasal Enterovir/Rhinovir PCR Nasal Influenza B PCR Nasal Influenza A PCR Nasal Parainfluen 1 PCR Nasal Parainfluen 2 PCR Nasal Parainfluen 3 PCR Nasal Parainfluen 4 PCR Nasal RSV (PCR) Nasal B.pertussis DNA PCR Nasal C.pneumoniae (PCR) Nam Human Metapneumo PCR Nasal M.pneumoniae (PCR) Nasal SARS-CoV-2 (PCR) Blood Type Antibody Screen Crossmatch IS Only 02/02/23 02/02/23 05:55 06:24 WBC RBC Hgb Hct MCV MCH MCHC RDW Plt Count MPV Neut # (Auto) Lymph # (Auto) Pratt # (Auto) Eos # (Auto) Baso # (Auto) Absolute Nucleated RBC Total Counted Band Neuts % (Manual) Abnorm Lymph % (Manual) Nucleated RBC % Neutrophils # (Manual) Lymphocytes # (Manual) Monocytes # (Manual) Eosinophils # (Manual) Basophils # (Manual) Differential Comment WBC Morphology Platelet Estimate Platelet Morphology RBC Morph Micro Appear Sodium Potassium Chloride Carbon Dioxide Anion Gap BUN Creatinine Estimated GFR (MDRD) Glucose Calcium Total Bilirubin AST ALT Alkaline Phosphatase Troponin I High Sens B-Natriuretic Peptide Total Protein Albumin Globulin Albumin/Globulin Ratio Lipase Nasal Adenovirus (PCR) NOT DETECTED Nasal B. parapertussis DNA (PCR) NOT DETECTED Nasal Coronavir 229E PCR NOT DETECTED Nasal Coronavir HKU1 PCR NOT DETECTED Nasal Coronavir NL63 PCR NOT DETECTED Nasal Coronavir OC43 PCR NOT DETECTED Nasal Enterovir/Rhinovir PCR NOT DETECTED Nasal Influenza B PCR NOT DETECTED Nasal Influenza A PCR NOT DETECTED Nasal Parainfluen 1 PCR NOT DETECTED Nasal Parainfluen 2 PCR NOT DETECTED Nasal Parainfluen 3 PCR NOT DETECTED Nasal Parainfluen 4 PCR NOT DETECTED Nasal RSV (PCR) NOT DETECTED Nasal B.pertussis DNA PCR NOT DETECTED Nasal C.pneumoniae (PCR) NOT DETECTED Nam Human Metapneumo PCR NOT DETECTED Nasal M.pneumoniae (PCR) NOT DETECTED Nasal SARS-CoV-2 (PCR) NOT DETECTED Blood Type O NEGATIVE Antibody Screen NEGATIVE Crossmatch IS Only See Detail - Rads (name of study) chest xray Relevant Findings:: Prelim report reviewed, See rad report PD Medical Decision Making - ED course Complexity details: reviewed results, re-evaluated patient, considered differential, d/w patient ED course: Tests ordered and results reviewed by me: CBC, ER abdominal panel, high- sensitivity troponin, BNP, EKG, chest x-ray. Most concerning finding is a hemoglobin of 5.3. For this, I have ordered transfusion PRBC. Rectal exam is performed and guaiac results are pending at the end of my shift. High-sensitivity troponin is mildly elevated (28.4). EKG shows atrial fibrillation with findings consistent with digoxin effect. Blood sugar is elevated (255). Note that the atrial fibrillation is chronic and he is on Eliquis as well as digoxin for this. I am turning over care of this patient to the oncoming ED physician (Dr. Duarte) at end of my shift. Departure - Departure Disposition: 66 [facility] DC/Xfer Forms: PCP List
[2023-02-02 05:55] LABS: BASOPHILS % (AUTO) 0.4 %; EOSINOPHILS % (AUTO) 2.4 %; HCT - HEMATOCRIT 20.5 % (42.0-52.0); LYMPHOCYTES % (AUTO) 25.1 %; MEAN CORPUSCULAR HEMOGLOBIN 19.6 pg (27.0-31.0); MEAN CORPUSCULAR HGB CONC 25.9 g/dL (32.0-36.0); MEAN CORPUSCULAR VOLUME 75.6 fL (80.0-94.0); NEUTROPHILS % (AUTO) 59.3 %; PLT - PLATELET COUNT 210 10^3/uL (130-450); RED BLOOD COUNT 2.71 10^6/uL (4.70-6.10); RED CELL DISTRIBUTION WIDTH 19.1 % (12.0-15.0); WHITE BLOOD COUNT 9.6 x10^3/uL (4.8-10.8)
[2023-02-02 06:02] LABS: HGB - HEMOGLOBIN 5.3 g/dL (14.0-18.0)
[2023-02-02 06:09] LABS: ALBUMIN 3.7 g/dL (3.2-5.5); ALBUMIN/GLOBULIN RATIO 1.5 (1.0-2.2); BILIRUBIN,TOTAL 0.7 mg/dL (0.2-1.0); CALCIUM 8.9 mg/dL (8.5-10.3); CREATININE 1.5 mg/dL (0.6-1.3); POTASSIUM 4.6 mmol/L (3.5-4.5); TOTAL PROTEIN 6.2 g/dL (6.4-8.9)
[2023-02-02 06:18] LABS: TROPONIN I HIGH SENSITIVITY 28.9 ng/L (2.3-19.7)
[2023-02-02 06:32] LABS: ABNORMAL LYMPHS % (MANUAL) 5 %; BAND NEUTROPHILS % (MANUAL) 1 %; DIFFERENTIAL COMMENT MANUAL DIFFERENTIAL; EOSINOPHILS # (MANUAL) 0.2 10^3/uL (0-0.7); LYMPHOCYTES # (MANUAL) 3.3 10^3/uL (1.5-3.5); LYMPHOCYTES % (MANUAL) 29 %; MONOCYTES # (MANUAL) 0.6 10^3/uL (0.0-1.0); NEUTROPHILS # (MANUAL) 5.6 10^3/uL (1.5-6.6); PLATELET ESTIMATE, MANUAL NORMAL (130-450,000) (NORMAL); PLATELET MORPHOLOGY NORMAL APPEARANCE (NORMAL); WBC MORPHOLOGY (MULTIPLE) NORMAL APPEARANCE (NORMAL)
[2023-02-02 07:06] LABS: B. PARAPERTUSSIS- RESP PCR PAN NOT DETECTED; B. PERTUSSIS- RESP PCR PANEL NOT DETECTED; C. PNEUMONIAE- RESP PCR PANEL NOT DETECTED; CORONAVIRUS 229E-RESP PCR NOT DETECTED; CORONAVIRUS HKU1-RESP PCR NOT DETECTED; CORONAVIRUS NL63-RESP PCR NOT DETECTED; CORONAVIRUS OC43-RESP PCR NOT DETECTED; HUMAN METAPNEUMOVIRUS NOT DETECTED; INFLUENZA A- RESP PCR PANEL NOT DETECTED; INFLUENZA B - RESP PCR PANEL NOT DETECTED; M. PNEUMONIAE- RESP PCR PANEL NOT DETECTED; PARAINFLUENZA VIRUS 1 NOT DETECTED; PARAINFLUENZA VIRUS 2 NOT DETECTED; PARAINFLUENZA VIRUS 3 NOT DETECTED; PARAINFLUENZA VIRUS 4 NOT DETECTED; RHINOVIRUS/ENTEROVIRUS NOT DETECTED; RSV- RESP PCR PANEL NOT DETECTED; SARS-CoV-2 -RESP PCR PANEL NOT DETECTED
[2023-02-02] MEDS ORDERED: FUROSEMIDE 40 MG/4 ML VIAL IVP STA (07:36)
--- NOTE | 2023-02-02 07:39 | ED Physician Documentation ---
ED Addendum - Addendum Addendum: 02/02/23 07:39 78-year-old male with history of atrial fibrillation on Eliquis has had a previous admission for anemia and congestive failure in September of this year. Today's presenting with acute dyspnea occurring during the night and on physical exam appears to be in failure. He is found to have a critically low hemoglobin and hematocrit and blood is ordered. I evaluated the patient at the bedside finding and inspriratory crackles at the bases. The patient was saturating 100% on room air on my examination. I used POCUS to evaluate the inferior vena cava and found him to have a 2.80 cm vessel which was plethoric. This is consistent with acute failure. The patient is administered 40 mg of Lasix intravenously.Patient has had admission in September of this year following that he had upper and lower scoping done which were negative. Today his stool is negative. We contacted out hospitalist Dr. Weems who agreed to hospitalize for symptomatic anemia resulting in congestive heart failure. Impression: Profound anemia, congestive heart failure. Plan: as above the patient was administered IV lasix and blood. He was admitted to the hospital for further care and stabilization. 02/02/23 07:41 02/02/23 19:55
[2023-02-02 09:23] LABS: BILIRUBIN,URINE NEGATIVE (NEGATIVE); GLUCOSE, URINE (UA) NEGATIVE (NEGATIVE); KETONES,URINE (UA) NEGATIVE (NEGATIVE); LEUKOCYTE ESTERASE, URINE NEGATIVE (NEGATIVE); NITRITE,URINE NEGATIVE (NEGATIVE); OCCULT BLOOD,URINE NEGATIVE (NEGATIVE); PROTEIN,URINE 100 mg/dL (NEGATIVE); UROBILINOGEN,URINE 0.2 (NORMAL) E.U./dL (NORMAL)
[2023-02-02] MEDS ORDERED: ONDANSETRON 4 MG/2 ML VIAL IVP PRN (09:24)
[2023-02-02] MEDS ORDERED: SODIUM CHLORIDE FLUSH 0.9% 10 ML SYRINGE IVP PRN (09:24)
[2023-02-02 09:26] LABS: CLARITY,URINE CLEAR (CLEAR)
[2023-02-02 09:31] LABS: BACTERIA,URINE None Seen /HPF (None Seen); RBC,URINE 0-5 /HPF (0-5); SQUAMOUS EPITHELIAL CELL,UR RARE Squamous (<= Few); WBC,URINE 0-3 /HPF (0-3)
--- NOTE | 2023-02-02 09:47 | XRAY Report ---
PROCEDURE: Chest 2 View X-Ray INDICATIONS: cough, dyspnea TECHNIQUE: 2 views of the chest were acquired. COMPARISON: 09/29/2022, 09/28/2022 FINDINGS: Surgical changes and devices: None. Lungs and pleura: No pneumothorax is seen. There is potential blunting of the posterior costophrenic angles. No focal infiltrates are seen. Narrowing of the trachea is seen, which is similar to the p rior examination. Mediastinum: Mediastinal contours appear normal. Heart size is mildly to moderately enlarged. Bones and chest wall: No suspicious bony lesions. Overlying soft tissues appear unremarkable. IMPRESSION: Cardiomegaly and potential small pleural effusions, without kay pulmonary edema. Note is made of narrowing of the trachea, which is similar to the prior examination. Note: No significant discrepancy from the preliminary report. Reviewed by: Suman Spaulding MD on 02/02/2023 8:46 AM SAVANNA Approved by: Suman Spaulding MD on 02/02/2023 8:46 AM SAVANNA Station ID: [id number]
[2023-02-02] MEDS: ACETAMINOPHEN 325 MG TABLET PO PRN (10:50)
--- NOTE | 2023-02-02 11:18 | HISTORY & PHYSICAL EXAMINATION ---
Chief Complaint - Chief Complaint Chief Complaint: SOB, orthopnea History of Present Illness - Admitted From Admitted From:: ED - History Obtained From History obtained from: ED and the patient - History of Present Illness HPI Comment/Other: This is a 78-year-old male who lives with his . He has a history of A-fib and takes Eliquis, had a MitraClip placed in 2021, has DM, CHF with an improved EF and NOEL on CPAP. He was admitted here about 6 months ago with low hemoglobin and CHF. He needed blood transfusion and diuretics. He was discharged and states that he had outpatient EGD and colonoscopy at [facility] and that no source of bleeding was found to explain the anemia. He presents now with a 1-1/2-day history of worsening shortness of breath and then severe orthopnea overnight last night. There was no chest pain. He does have chronic leg edema and has had leg wounds needing wound care. He denies cough, sputum, fever, recent travel. Because of the severe orthopnea over night, he presented to the ER and was found to have a hemoglobin of 5.3, and cardiomegaly and CHF were seen on chest x-ray. He was given 1 dose of IV Lasix and started on a blood transfusion. His O2 saturation is stable on room air. The ED provider spoke to me about this patient. He will be placed in Observation status to further manage his anemia and CHF exacerbation. The patient wants to a Full Code but wants no intubation. History - Past Medical History Cardiovascular: reports: Congestive heart failure, Hypertension, Peripheral Vascular Disease, Atrial fibrillation Respiratory: reports: Sleep apnea, CPAP use Neuro: reports: None Endocrine/Autoimmune: reports: Type 1 diabetes GI: reports: GERD : reports: None, Other HEENT: reports: None Psych: reports: None Musculoskeletal: reports: Chronic back pain Derm: reports: Other MRSA Hx?: No - Past Surgical History Ortho: reports: Amputation Cardiovascular: reports: Vascular surgery, Other HEENT: reports: Cataracts Derm: reports: Skin cancer surgery - Family & Social History Family History Comment/Other: He does not know details, except that he mother is [place] and father of descent. Living arrangement: At home Living Situation: With spouse/s.o. Social History Notes: Lives with spouse at home. Ambulates with walker at baseline. Smokes 0- 1/4 pack per day. Minimal alcohol use. No illict drug use. - Substance History Use: Uses substance without health or social issues: Tobacco - POLST Patient has POLST: No Meds/Allgy - Home Medications Home Medications: Ambulatory Orders Medication Instructions Recorded Confirmed Metformin HCl 1,000 mg PO BIDWM 06/07/15 02/02/23 Pregabalin [Lyrica] 75 mg PO DAILY 11/05/18 02/02/23 Apixaban [Eliquis] 5 mg PO BID 06/05/22 02/02/23 Diclofenac Sodium 1% Gel [Voltaren 2 gm TOP QID PRN 06/05/22 02/02/23 Gel] Insulin Glargine,Hum.rec.anlog 20 unit SUBQ HS 06/05/22 02/02/23 [Basaglfelice Beyer U-100] Ipratropium [Atrovent] 1 puffs INH TID PRN 06/05/22 02/02/23 Melatonin 10 mg PO QPM 06/05/22 02/02/23 Pregabalin [Lyrica] 150 mg PO HS 06/05/22 02/02/23 carvediloL [Coreg] 25 mg PO BIDWM 06/05/22 02/02/23 Acetaminophen [Tylenol] 500 mg PO Q6HR PRN 09/29/22 02/02/23 Bumetanide 4 mg PO DAILY 09/29/22 02/02/23 Capsaicin 0.025% Cream [Trixaicin 1 applic TOP QID PRN 09/29/22 02/02/23 0.025% Cream] Digoxin [Lanoxin] 250 mcg PO DAILY 09/29/22 02/02/23 Isosorbide Mononitrate ER [Imdur] 30 mg PO DAILY 09/29/22 02/02/23 Lidocaine Topical 4% Soln 2 ml TOP DAILY PRN 09/29/22 02/02/23 [Xylocaine Topical 4% Soln] Mometasone Furoate [Asmanex] 2 inh INH QPM 09/29/22 02/02/23 Nystatin/Triamcin 1 gm TOP BID 09/29/22 02/02/23 [Nystatin-Triamcinolone Ointm] glipiZIDE [Glucotrol] 5 mg PO QDAC 09/29/22 02/02/23 hydrALAZINE [Apresoline] 10 mg PO TID 09/29/22 02/02/23 - Allergies Allergies/Adverse Reactions: Allergies Allergy/AdvReac Type Severity Reaction Status Date / Time codeine AdvReac Intermediate Hallucinati Verified 02/02/23 05:28 ons guaiacol AdvReac Intermediate Hallucinati Verified 02/02/23 05:28 ons guaifenesin AdvReac Intermediate Hallucinati Verified 02/02/23 05:28 ons promethazine [From Phenergan] AdvReac Intermediate Hallucinati Verified 02/02/23 05:28 ons Review of Systems - Constitutional Constitutional: reports: Weakness - Respiratory Respiratory: reports: Orthopnea, SOB at rest, SOB with exertion - Neurological Neurological: reports: Headache (Tendereness on top of head sever, only when he touches it, has been chronic, he has it now) - All Other Systems All Other Systems: reports: Reviewed and negative Exam - Vital Signs Reviewed Vital Signs: Yes Vital Signs: Vital Signs x48h Temp Pulse Pulse Resp BP BP Pulse Ox 02/02/23 10:57 36.5 C 67 22 111/52 L 98 02/02/23 08:50 68 18 139/42 H 98 02/02/23 08:16 36.5 C 75 19 124/95 H 92 02/02/23 07:56 36.4 C L 23 117/70 100 02/02/23 05:35 97 02/02/23 05:33 90 L 02/02/23 05:10 36.4 C L 83 15 121/62 100 O2 Flow Rate 02/02/23 10:57 2 02/02/23 08:50 02/02/23 08:16 2 02/02/23 07:56 2 02/02/23 05:35 2 02/02/23 05:33 02/02/23 05:10 - Physical Exam General Appearance: positive: No acute distress, Alert Eyes Bilateral: positive: Normal inspection, EOMI ENT: positive: ENT inspection nml, No signs of dehydration Neck: positive: Nml inspection, No JVD Respiratory: positive: No respiratory distress, Rales (R base) Cardiovascular: positive: No murmur, Irregularly irregular Abdomen: positive: Non-tender, Nml bowel sounds, No distention Skin: positive: Warm, Dry Extremities: positive: Non-tender, Other (Deep brown venous stasis changes. 3+ tense edema to below the knees) Neurologic/Psychiatric: positive: Oriented x3, CN's nml (2-12), Motor nml Conclusion/Plan - Problem List (1) Symptomatic anemia Conclusion/Plan: He presents with a hemoglobin of 5.3. This is likely the reason that he was orthopneic and short of breath. His guaiac stool is negative. Plan: Continue with blood transfusion, 1 unit ordered in ED, I will order a second unit Follow hemoglobin every 8-12 hours. Target hemoglobin greater than 7 I will request the records of the EGD and colonoscopy that prove he did not have a GI source of blood loss. If in fact there is no GI bleed, he needs a bone marrow biopsy. I told him this today. (2) CHF exacerbation Conclusion/Plan: Presumably the cause of the exacerbation is this severe anemia. Possibly there was noncompliance with meds as well Plan: Place the patient in Observation status I will start him on IV twice daily Lasix We will resume all his usual cardiac medications. We will place on telemetry to watch for tachy or bradycardia arrhythmias, and adjust med doses if needed. I will order iron studies and give IV iron, as per guideline directed medical therapy, if the iron is low Qualifiers: (3) Acute kidney injury superimposed on CKD Conclusion/Plan: His labs were all reviewed. His GFR is 45, baseline GFR is 60. I suspect he has cardiorenal syndrome from the CHF exacerbation. Plan: Avoid nephrotoxins Treat his CHF as in #2 above Follow BMP daily (4) Atrial fibrillation Conclusion/Plan: This patient has chronic A-fib. Currently his rate drops as low as 40 (seen on telemetry). He has been on a DOAC for stroke prophylaxis Plan: Await the reconciled med list to restart heart rate-control meds. I will either decrease doses or stop a med due to excessive bradycardia. Check a Dig level w/ a.m. meds Since the guaiac stool is negative, I will resume his usual anticoagulant. Qualifiers: Atrial fibrillation type: unspecified chronic Qualified Code(s): I48.20 - Chronic atrial fibrillation, unspecified; I48.2 - Chronic atrial fibrillation (5) NOEL on CPAP Conclusion/Plan: The last echo did show he has cor pulmonale Plan: I will order his CPAP to be used while he is here (6) S/P mitral valve clip implantation Conclusion/Plan: As per history. The last Echo done several months ago showed good function of the mitral clipAs per history. (7) DM type 2 (diabetes mellitus, type 2) Conclusion/Plan: On a prior admission the patient told me he has no plan to follow a diabetic diet. He is compliant with his oral medication and insulin Plan: I will order a diabetic diet here, fingerstick checks and sliding scale insulin coverage. Hold metformin while his creatinine is elevated - Lab Results Fish Bones: 02/02/23 12:55 02/02/23 05:24 - Diagnostic Imaging Results Diagnostic Imaging Results: positive: Final report reviewed
[2023-02-02] MEDS ORDERED: INSULIN LISPRO 300 UNIT/3 ML PEN SUBQ SCH (12:00)
[2023-02-02] MEDS ORDERED: ACETAMINOPHEN 500 MG TABLET PO PRN (13:25)
[2023-02-02] MEDS ORDERED: DICLOFENAC SODIUM 1% GEL 50 GM TUBE TOP PRN (13:25)
[2023-02-02] MEDS: FUROSEMIDE 40 MG/4 ML VIAL IVP SCH (14:07)
[2023-02-02] MEDS: SODIUM CHLORIDE FLUSH 0.9% 10 ML SYRINGE IVP SCH (15:57)
[2023-02-02] MEDS: BENZONATATE 100 MG CAPSULE PO PRN ×2 (15:58→21:35)
[2023-02-02] MEDS: IBUPROFEN 600 MG TABLET PO PRN (15:58)
[2023-02-02] MEDS ORDERED: carvediloL 12.5 MG TABLET PO SCH (17:00)
[2023-02-02] MEDS: INSULIN LISPRO 300 UNIT/3 ML PEN SUBQ SCH ×2 (17:20→21:44)
[2023-02-02] MEDS: BUDESONIDE 0.5 MG/2 ML NEB INH SCH (18:27)
[2023-02-02] MEDS: IPRATROPIUM 0.2 MG/ML NEB INH SCH (18:27)
[2023-02-02] MEDS ORDERED: PREGABALIN 25 MG CAPSULE PO SCH (21:00)
[2023-02-02] MEDS ORDERED: INSULIN GLARGINE-YFGN 300 UNIT/3 ML PEN SUBQ SCH (21:00)
[2023-02-02] MEDS ORDERED: PREGABALIN 75 MG PO SCH (21:00)
[2023-02-02] MEDS ORDERED: PREGABALIN 100 MG CAPSULE PO SCH (21:00)
[2023-02-02] MEDS: APIXABAN 5 MG TABLET PO SCH (21:35)
[2023-02-03] MEDS: SODIUM CHLORIDE FLUSH 0.9% 10 ML SYRINGE IVP SCH ×2 (01:34→08:23)
[2023-02-03] MEDS: ACETAMINOPHEN 325 MG TABLET PO PRN (04:09)
[2023-02-03] MEDS: IPRATROPIUM 0.2 MG/ML NEB INH SCH ×2 (05:46→06:23)
[2023-02-03] MEDS: BUDESONIDE 0.5 MG/2 ML NEB INH SCH (06:23)
[2023-02-03] MEDS: FUROSEMIDE 40 MG/4 ML VIAL IVP SCH (06:24)
[2023-02-03] MEDS ORDERED: glipiZIDE 5 MG TABLET PO SCH (07:00)
[2023-02-03 07:34] LABS: HGB - HEMOGLOBIN 7.1 g/dL (14.0-18.0)
[2023-02-03 07:41] LABS: BASOPHILS % (AUTO) 0.4 %; EOSINOPHILS % (AUTO) 2.6 %; HCT - HEMATOCRIT 24.7 % (42.0-52.0); LYMPHOCYTES % (AUTO) 26.9 %; MEAN CORPUSCULAR HEMOGLOBIN 21.6 pg (27.0-31.0); MEAN CORPUSCULAR HGB CONC 28.7 g/dL (32.0-36.0); MEAN CORPUSCULAR VOLUME 75.3 fL (80.0-94.0); MEAN PLATELET VOLUME 10.2 fL (7.4-11.4); MONOCYTES % (AUTO) 11.5 %; NEUTROPHILS % (AUTO) 58.2 %; PLT - PLATELET COUNT 197 10^3/uL (130-450); RED BLOOD COUNT 3.28 10^6/uL (4.70-6.10); RED CELL DISTRIBUTION WIDTH 20.6 % (12.0-15.0)
[2023-02-03 07:42] LABS: SLIDE REVIEW? Indicated
[2023-02-03 07:51] LABS: BUN - BLOOD UREA NITROGEN 43 mg/dL (6-20); CALCIUM 9.1 mg/dL (8.5-10.3); CARBON DIOXIDE - CO2 28 mmol/L (21-32); CHLORIDE 103 mmol/L (101-111); CREATININE 1.3 mg/dL (0.6-1.3); DIGOXIN 1.2 ng/mL; GFR - MDRD 53 (>89); GLUCOSE 152 mg/dL (74-104); IRON < 10 ug/dL (50-212); MAGNESIUM 1.8 mg/dL (1.7-2.3); POTASSIUM 4.1 mmol/L (3.5-4.5); SODIUM 137 mmol/L (135-145); TOTAL IRON BINDING CAPACITY 482 ug/dL (250-450); TRANSFERRIN 344 mg/dL (203-362)
[2023-02-03] MEDS ORDERED: carvediloL 12.5 MG TABLET PO SCH (08:00)
[2023-02-03 08:02] LABS: BAND NEUTROPHILS % (MANUAL) 0 %; PLATELET ESTIMATE, MANUAL NORMAL (130-450,000) (NORMAL); PLATELET MORPHOLOGY NORMAL APPEARANCE (NORMAL); WBC MORPHOLOGY (MULTIPLE) NORMAL APPEARANCE (NORMAL)
[2023-02-03 08:03] LABS: ABNORMAL LYMPHS % (MANUAL) 2 %; BASOPHILS # (MANUAL) 0.2 10^3/uL (0-0.1); BASOPHILS % (MANUAL) 2 %; DIFFERENTIAL COMMENT MANUAL DIFFERENTIAL; EOSINOPHILS # (MANUAL) 0.1 10^3/uL (0-0.7); LYMPHOCYTES % (MANUAL) 20 %; MONOCYTES # (MANUAL) 0.7 10^3/uL (0.0-1.0)
[2023-02-03] MEDS: APIXABAN 5 MG TABLET PO SCH (08:21)
[2023-02-03] MEDS: INSULIN LISPRO 300 UNIT/3 ML PEN SUBQ SCH ×2 (08:21→11:41)
[2023-02-03] MEDS ORDERED: ISOSORBIDE MONONITRATE ER 30 MG TABLET PO SCH (09:00)
[2023-02-03] MEDS ORDERED: PREGABALIN 25 MG CAPSULE PO SCH (09:00)
[2023-02-03] MEDS ORDERED: DIGOXIN 125 MCG TABLET PO SCH (09:00)
--- NOTE | 2023-02-03 10:22 | Discharge Plan ---
Discharge Plan Problem Reviewed?: Yes Disposition: Home, Self Care Condition: Fair Diet: Diabetic (Low sodium diet please) Activity Restrictions: Activity as Tolerated Assistance Devices: Walker Instruction Topics: Heart Failure Warning Signs, Heart Failure Tracking Weight, Heart Failure Diet Changes Health Concerns: You were in the hospital to get iv Lasix while receiving blood transfusions to manage your severe anemia, because the severe anemia put you into congestive heart failure. You also received a dose of IV iron, to more quickly boost your bone marrow. You need further outpatient evaluation of why you get so anemic. The next step is to have a bone marrow biopsy. Your primary care doctor needs to arrange for this and then refer you to a Medical Health Researcher (blood specialist). Please see your provider soon to address that and to discuss the unique headaches you have. Please resume all your usual pre-hospital medications and management. Remember to eat a low-salt diet which will help decrease fluid retention. Plan of Treatment: As above. Care Goals: Improvement in symptoms and stabilization are the goals. Assessment: The patient understands and is agreeable with the plan. Additional Instructions or Follow Up instructions: If you get new or worsening symptoms, call your Primary Care Provider for advice, or go to an Urgent Care Clinic, or come to the ER. No Smoking: If you smoke, Please STOP! Call for help. Follow-up with: KATINA MINA PA-C [Physician No Access] -
--- NOTE | 2023-02-03 10:59 | PHARMACY PROGRESS NOTE ---
- Best Possible Medication History Admit Date and Time: 02/02/23923 Processed by: Pharmacy Medication History completed: Yes Patient Interview: Completed Secondary Source(s): Written medication list, Spouse/Significant other As the person ultimately responsible for medication therapy, providers are able to order a medication from an existing home medication list in [facility] via the "Reconcile Routine" prior to Confirmation of that medication by production support developer. Such practice is discouraged except when the physician, in their clinical judgment, deems that a medical need exists for a medication without regard to previous use.
[2023-02-03] MEDS ORDERED: IRON DEXTRAN 1,000 MG in SODIUM CHLORIDE 0.9% 250 ML IV ONE (11:00)
[2023-02-03] MEDS: IBUPROFEN 600 MG TABLET PO PRN (11:13)
[2023-02-03 12:13] VITALS: BP 119/56; O2SAT 93
--- NOTE | 2023-02-03 12:41 | DISCHARGE SUMMARY ---
Discharge Summary Admit Date: 02/02/23 Discharge Date: 02/03/23 Discharging Provider: Amelie Araya MD Primary Care Provider: KELSIE Romero Code Status: Attempt Resuscitation Condition at Discharge: Fair Discharge Disposition: 01 Home, Self Care - HPI History of Present Illness: This is a 78-year-old male who lives with his . He has a history of A-fib and takes Eliquis, had a MitraClip placed in 2021, has DM, CHF with an improved EF and NOEL on CPAP. He was admitted here about 6 months ago with low hemoglobin and CHF. He needed blood transfusion and diuretics. He was discharged and states that he had outpatient EGD and colonoscopy at [facility] and that no source of bleeding was found to explain the anemia. He pres ents now with a 1-1/2-day history of worsening shortness of breath and then severe orthopnea overnight last night. There was no chest pain. He does have chronic leg edema and has had leg wounds needing wound care. He denies cough, sputum, fever, recent travel. Because of the severe orthopnea over night, he presented to the ER and was found to have a hemoglobin of 5.3, and cardiomegaly and CHF were seen on chest x-ray. He was given 1 dose of IV Lasix and started on a blood transfusion. His O2 saturation is stable on room air. The ED provider spoke to me about this patient. He will be placed in Observation status to further manage his anemia and CHF exacerbation. The patient wants to a Full Code but wants no intubation. - HOSPITAL COURSE Hospital Course: (1) Symptomatic anemia He presented with a hemoglobin of 5.3. This was likely the reason that he was orthopneic and short of breath. His guaiac stool was negative. He received 2U PRBCs total and his Hgb at discharge was 7.1. Also, he had very low iron studies and received IV iron x1, as per CHF guideline directed medical therapy, if the iron is low. He needs a bone marrow biopsy done by IR, then referral to Hematology. (2) CHF exacerbation Presumably the cause of the exacerbation is this severe anemia. Possibly there was noncompliance with meds. He was kept on his usual meds except we used IV Lasix while he was here. Also, he had very low iron studies and got IV iron, as per CHF guideline directed medical therapy, if the iron is low (3) Acute kidney injury superimposed on CKD His BUN/creat were 47/1.5, and his baseline is 40/1.2. I suspect he had cardiorenal syndrome from the CHF exacerbation. At discharge, BUN/creat improved to 43/1.3 (4) Headache He had a headache while here and describes this as chronic and intermittent and severe. It is on the top of his head. He reported he was referred to see a physical therapist and have muscle relaxants for treatment which have not helped. I recommend he be seen by Neurology, since perhaps he has (an atypical location for) Giant Cell Arteritis headaches. (5) Atrial fibrillation This patient has chronic A-fib. He was kept on his same meds since the guaiac stool was negative. (6) NOEL on CPAP CPAP was ordered to be used here. The last Echo did show he has Cor Pulmonale (7) S/P mitral valve clip implantation The last Echo done several months ago showed good function of the mitral clip (8) DM type 2 (diabetes mellitus, type 2) On a prior admission the patient told me he has no plan to follow a diabetic diet. He is compliant with his medications however. We held the Metformin here, due to acute on CKD. All meds were to be restarted after discharge. - ALLERGIES Allergies/Adverse Reactions: Allergies Allergy/AdvReac Type Severity Reaction Status Date / Time codeine AdvReac Intermediate Hallucinati Verified 02/02/23 05:28 ons guaiacol AdvReac Intermediate Hallucinati Verified 02/02/23 05:28 ons guaifenesin AdvReac Intermediate Hallucinati Verified 02/02/23 05:28 ons promethazine [From Phenergan] AdvReac Intermediate Hallucinati Verified 02/02/23 05:28 ons - MEDICATIONS Home Medications: Ambulatory Orders Medication Instructions Recorded Confirmed Metformin HCl 1,000 mg PO BIDWM 06/07/15 02/02/23 Pregabalin [Lyrica] 75 mg PO DAILY 11/05/18 02/02/23 Apixaban [Eliquis] 5 mg PO BID 06/05/22 02/02/23 Diclofenac Sodium 1% Gel [Voltaren 2 gm TOP QID PRN 06/05/22 02/02/23 Gel] Insulin Glargine,Hum.rec.anlog 20 unit SUBQ HS 06/05/22 02/02/23 [Basaglar Kwikpen U-100] Ipratropium [Atrovent] 1 puffs INH TID PRN 06/05/22 02/02/23 Melatonin 10 mg PO QPM 06/05/22 02/02/23 Pregabalin [Lyrica] 150 mg PO HS 06/05/22 02/02/23 carvediloL [Coreg] 25 mg PO BIDWM 06/05/22 02/02/23 Acetaminophen [Tylenol] 500 mg PO Q6HR PRN 09/29/22 02/02/23 Bumetanide 4 mg PO DAILY 09/29/22 02/02/23 Capsaicin 0.025% Cream [Trixaicin 1 applic TOP QID PRN 09/29/22 02/02/23 0.025% Cream] Digoxin [Lanoxin] 250 mcg PO DAILY 09/29/22 02/02/23 Isosorbide Mononitrate ER [Imdur] 30 mg PO DAILY 09/29/22 02/02/23 Lidocaine Topical 4% Soln 2 ml TOP DAILY PRN 09/29/22 02/02/23 [Xylocaine Topical 4% Soln] Mometasone Furoate [Asmanex] 2 inh INH QPM 09/29/22 02/02/23 Nystatin/Triamcin 1 gm TOP BID 09/29/22 02/02/23 [Nystatin-Triamcinolone Ointm] glipiZIDE [Glucotrol] 5 mg PO QDAC 09/29/22 02/02/23 hydrALAZINE [Apresoline] 10 mg PO TID 09/29/22 02/02/23 Omeprazole Magnesium 20 mg PO DAILY 02/03/23 02/03/23 - PHYSICAL EXAM AT DISCHARGE General Appearance: positive: No acute distress, Alert Eyes Bilateral: positive: Normal inspection, EOMI ENT: positive: ENT inspection nml, No signs of dehydration Neck: positive: Nml inspection, No JVD Respiratory: positive: No respiratory distress, Breath sounds nml Cardiovascular: positive: No murmur, Irregularly irregular Abdomen: positive: Non-tender, Nml bowel sounds, No distention Skin: positive: Warm, Dry Extremities: positive: Non-tender, Other (Brown tense venous stasis induration up to his knees) Neurologic/Psychiatric: positive: Oriented x3, Motor nml - LABS Result Diagrams: 02/03/23 07:23 02/03/23 07:23 - DIAGNOSTIC IMAGING Diagnostic Imaging Results: Final report reviewed - FOLLOW UP Follow Up: See PCP in follow-up. - TIME SPENT Time Spent in Discharge (Minutes): 25
== END 2023-02-03 13:55 | disposition home or self-care (01) ==
LOC: EDUNIT# → ED 05:12 → MS2 09:24
PROVIDERS: ADMIT Internal Medicine; ATTEND Internal Medicine
DX: D64.9 Anemia, unspecified (principal); I13.0 Hypertensive heart and chronic kidney disease with heart failure and stage 1 through stage 4 chronic kidney disease, or unspecified chronic kidney disease; I50.9 Heart failure, unspecified; I48.20 Chronic atrial fibrillation, unspecified; N17.9 Acute kidney failure, unspecified; E11.51 Type 2 diabetes mellitus with diabetic peripheral angiopathy without gangrene; Z79.4 Long term (current) use of insulin; R51.9 Headache, unspecified; G47.33 Obstructive sleep apnea (adult) (pediatric); J44.9 Chronic obstructive pulmonary disease, unspecified; Z99.89 Dependence on other enabling machines and devices; Z79.01 Long term (current) use of anticoagulants; Z79.84 Long term (current) use of oral hypoglycemic drugs; Z95.818 Presence of other cardiac implants and grafts; Z20.822 Contact with and (suspected) exposure to COVID-19; F17.210 Nicotine dependence, cigarettes, uncomplicated
CPT/HCPCS: 36415; 36430; 71046; 80048; 80053; 80162; 81001; 82272; 82607; 82746; 83540; 83690; 83735; 83880; 84466; 84484; 85018; 85025; 86850; 86900; 86901; 86920; 87633; 93005; 94640; 94660; 96365; 96375; 96376; 99285; A9270; G0378; J1750; J1815; J7626; P9016; 81003; 87086

== ENCOUNTER 2023-02-26 11:32 | Outpatient (CLI) | payer MEDICARE, BC | END 2023-02-26 11:33 | disposition critical access hospital (66) | LOC: EMS 11:32 | DX: R10.84 Generalized abdominal pain (principal); R63.0 Anorexia; R63.4 Abnormal weight loss; R19.5 Other fecal abnormalities | CPT/HCPCS: A0425; A0429 ==

== ENCOUNTER 2023-04-14 08:25 | Outpatient (CLI) | payer MEDICARE, BC | END 2023-04-14 08:26 | disposition critical access hospital (66) | LOC: EMS 08:25 | DX: R42 Dizziness and giddiness (principal); R53.1 Weakness; R06.02 Shortness of breath; R11.0 Nausea | CPT/HCPCS: A0425; A0427 ==

== ENCOUNTER 2023-04-14 08:53 | Emergency (ER) | payer MEDICARE, BC ==
[2023-04-14 10:24] LABS: BASOPHILS % (AUTO) 0.1 %; EOSINOPHILS # (AUTO) 0.1 10^3/uL (0.0-0.7); EOSINOPHILS % (AUTO) 0.8 %; LYMPHOCYTES # (AUTO) 1.5 10^3/uL (1.5-3.5); MEAN CORPUSCULAR HEMOGLOBIN 20.2 pg (27.0-31.0); MEAN CORPUSCULAR HGB CONC 26.9 g/dL (32.0-36.0); MEAN PLATELET VOLUME 10.2 fL (7.4-11.4); MONOCYTES % (AUTO) 11.1 %; NEUTROPHILS # (AUTO) 6.1 10^3/uL (1.5-6.6); NEUTROPHILS % (AUTO) 70.5 %; NUCLEATED RED BLOOD CELLS AUTO 1.2 /100WBC; PLT - PLATELET COUNT 146 10^3/uL (130-450); RED BLOOD COUNT 2.28 10^6/uL (4.70-6.10); WHITE BLOOD COUNT 8.6 x10^3/uL (4.8-10.8)
[2023-04-14 10:27] LABS: HCT - HEMATOCRIT 17.1 % (42.0-52.0); HGB - HEMOGLOBIN 4.6 g/dL (14.0-18.0); SLIDE REVIEW? Indicated
--- NOTE | 2023-04-14 10:30 | XRAY Report ---
PROCEDURE: Chest 1 View X-Ray INDICATIONS: Chest pain TECHNIQUE: One view of the chest was acquired. COMPARISON: 02/02/2023, 09/29/2022 FINDINGS: Surgical changes and devices: There is an apparent clip seen overlying the heart. Lungs and pleura: No pleural effusions or pneumothorax. Mild interstitial prominence is seen. Mediastinum: There is mild cardiomegaly. Bones and chest wall: No suspicious bony lesions. Age-appropriate degenerative changes are seen. Overlying soft tissues appear unremarkable. IMPRESSION: Cardiomegaly and interstitial prominence. Early CHF is suspected. Reviewed by: Suman Spaulding MD on 04/14/2023 9:28 AM [facility] Approved by: Suman Spaulding MD on 04/14/2023 9:28 AM [facility] Station ID: [id number]
[2023-04-14 10:41] LABS: ALBUMIN 3.8 g/dL (3.2-5.5); ALBUMIN/GLOBULIN RATIO 1.6 (1.0-2.2); BILIRUBIN,TOTAL 0.5 mg/dL (0.2-1.0); CALCIUM 8.9 mg/dL (8.5-10.3); CREATININE 1.3 mg/dL (0.6-1.3); POTASSIUM 4.2 mmol/L (3.5-4.5); TOTAL PROTEIN 6.2 g/dL (6.4-8.9)
[2023-04-14 10:43] LABS: PLATELET ESTIMATE, MANUAL NORMAL (130-450,000) (NORMAL); PLATELET MORPHOLOGY NORMAL APPEARANCE (NORMAL)
[2023-04-14 10:47] LABS: TROPONIN I HIGH SENSITIVITY 20.4 ng/L (2.3-19.7)
[2023-04-14] MEDS ORDERED: SODIUM CHLORIDE 0.9% 1,000 ML IV STA (10:54)
[2023-04-14] MEDS ORDERED: MECLIZINE 12.5 MG TABLET PO STA (10:55)
[2023-04-14 11:19] LABS: INR 1.7 (0.8-1.2); PT - PROTHROMBIN TIME 18.5 secs (9.9-12.6)
[2023-04-14] MEDS ORDERED: HYDROmorphone 1 MG/ML CARPUJECT IVP STA ×2 (12:41→16:24)
--- NOTE | 2023-04-14 12:44 | ED Physician Documentation ---
PD HPI GI BLEED - Stated complaint Stated Complaint: GEN WEAKNESS - Chief complaint Chief Complaint: Cardiac - History obtained from History obtained from: Patient, Family, EMS - History of Present Illness Timing - onset: How many days ago (5-6) Timing - duration: Days (5-6) Timing - details: Gradual onset, Still present, Waxing and waning Associated symptoms: Vomiting (He has vomited several times over the last several days without any notice of coffee-ground nor red blood.), Black/tarry stool. No: Coffee ground emesis, Hematemesis, Diarrhea Contributing factors: Anticoagulated (for atrial fib.). No: Sick contact Improved by: Laying still Worsened by: Moving (he is having an elemnt of vertigo with the nausea.). No: Eating Similar symptoms before: No diagnosis (He has had apparent GI bleeding with dark stool. Had upper and lower scopes without diagnostic findings. Reportedly lower prep was inadequate. He was prepping for a ingested camera endoscopy when nausea and weakness increased.) Recently seen: Clinic (Patient states he had outpatient upper and lower endoscopies by Dr. Ronald Granda through [facility] within the past month without any positive findings. Was preparing for virtual endoscopy to be done days ago but was postponed due to his side effects.) Review of Systems Constitutional: denies: Fever, Chills Nose: denies: Rhinorrhea / runny nose, Congestion Throat: denies: Sore throat Cardiac: reports: Chest pain / pressure Respiratory: reports: Dyspnea. denies: Cough GI: reports: Abdominal Pain (intermittent lower cramps.), Nausea, Vomiting, Bloody / black stool (dark stools. no red blood.). denies: Constipation PD PAST MEDICAL HISTORY - Past Medical History Past Medical History: Yes Cardiovascular: Congestive heart failure, Hypertension, Peripheral Vascular Disease, Atrial fibrillation Respiratory: Sleep apnea, CPAP use Neuro: None Endocrine/Autoimmune: Type 1 diabetes GI: GERD : None, Other HEENT: None Psych: None Musculoskeletal: Chronic back pain Derm: Other - Past Surgical History Past Surgical History: Yes General: Colonoscopy Ortho: Amputation Cardiovascular: Vascular surgery, Other HEENT: Cataracts Derm: Skin cancer surgery - Present Medications Home Medications: Ambulatory Orders Medication Instructions Recorded Confirmed Metformin HCl 1,000 mg PO BIDWM 06/07/15 02/02/23 Pregabalin [Lyrica] 75 mg PO DAILY 11/05/18 02/02/23 Apixaban [Eliquis] 5 mg PO BID 06/05/22 02/02/23 Diclofenac Sodium 1% Gel [Voltaren 2 gm TOP QID PRN 06/05/22 02/02/23 Gel] Insulin Glargine,Hum.rec.anlog 20 unit SUBQ HS 06/05/22 02/02/23 [Basaglar Kwikpen U-100] Ipratropium [Atrovent] 1 puffs INH TID PRN 06/05/22 02/02/23 Melatonin 10 mg PO QPM 06/05/22 02/02/23 Pregabalin [Lyrica] 150 mg PO HS 06/05/22 02/02/23 carvediloL [Coreg] 25 mg PO BIDWM 06/05/22 02/02/23 Acetaminophen [Tylenol] 500 mg PO Q6HR PRN 09/29/22 02/02/23 Bumetanide 4 mg PO DAILY 09/29/22 02/02/23 Capsaicin 0.025% Cream [Trixaicin 1 applic TOP QID PRN 09/29/22 02/02/23 0.025% Cream] Digoxin [Lanoxin] 250 mcg PO DAILY 09/29/22 02/02/23 Isosorbide Mononitrate ER [Imdur] 30 mg PO DAILY 09/29/22 02/02/23 Lidocaine Topical 4% Soln 2 ml TOP DAILY PRN 09/29/22 02/02/23 [Xylocaine Topical 4% Soln] Mometasone Furoate [Asmanex] 2 inh INH QPM 09/29/22 02/02/23 Nystatin/Triamcin 1 gm TOP BID 09/29/22 02/02/23 [Nystatin-Triamcinolone Ointm] glipiZIDE [Glucotrol] 5 mg PO QDAC 09/29/22 02/02/23 hydrALAZINE [Apresoline] 10 mg PO TID 09/29/22 02/02/23 Omeprazole Magnesium 20 mg PO DAILY 02/03/23 02/03/23 Esomeprazole Magnesium [Nexium] 40 mg PO DAILY #30 cap 02/26/23 Famotidine [Pepcid] 20 mg PO BID #60 tablet 02/26/23 Ondansetron Odt [Zofran] 4 mg TL Q6H PRN #10 tablet 02/26/23 Sucralfate [Carafate] 1 gm PO ACHS #60 tablet 02/26/23 - Allergies Allergies/Adverse Reactions: Allergies Allergy/AdvReac Type Severity Reaction Status Date / Time codeine AdvReac Intermediate Hallucinati Verified 04/14/23 09:10 ons guaiacol AdvReac Intermediate Hallucinati Verified 04/14/23 09:10 ons guaifenesin AdvReac Intermediate Hallucinati Verified 04/14/23 09:10 ons promethazine [From Phenergan] AdvReac Intermediate Hallucinati Verified 04/14/23 09:10 ons - Social History Does the pt smoke?: Yes Smoking Status: Current every day smoker Does the pt drink ETOH?: Yes Does the pt have substance abuse?: No - Immunizations Immunizations are current?: Yes - POLST Patient has POLST: No PD ED PE NORMAL - Vitals Vital signs reviewed: Yes - General General: Alert and oriented X 3, Well developed/nourished - Neck Neck: Supple, no meningeal sign, No adenopathy - Cardiac Cardiac: No: RRR (irregular but normal rate, mild 1/6 murmur left chest. ) - Respiratory Respiratory: No respiratory distress. No: Clear bilaterally (mild fine crackles at the bases. ) - Abdomen Abdomen: Soft, Non tender. No: Normal bowel sounds (decreased) - Rectal Rectal: Other (soft dark stool in vault. Specimen sent to lab. ) - Derm Derm: Normal color, Warm and dry - Extremities Extremities: No calf tenderness / cord, Other (1+ edema right leg, minimal to shaji left leg. ) - Neuro Neuro: Alert and oriented X 3, No motor deficit, Normal speech Results - Vitals Vitals: Vital Signs - 24 hr 04/14/23 04/14/23 04/14/23 09:01 09:42 11:10 Temperature 36.0 C L Heart Rate 93 89 91 Heart Rate [ Monitoring electrodes] Respiratory 17 18 18 Rate Blood Pressure 96/63 100/47 L 112/66 Blood Pressure [Right Brachial artery] O2 Saturation 99 100 96 04/14/23 04/14/23 04/14/23 13:20 13:30 13:48 Temperature 36.5 C 36.5 C 36.5 C Heart Rate 87 Heart Rate [ 87 84 Monitoring electrodes] Respiratory 17 19 18 Rate Blood Pressure 118/66 Blood Pressure 107/70 121/50 L [Right Brachial artery] O2 Saturation 97 100 99 04/14/23 04/14/23 04/14/23 14:51 15:42 16:01 Temperature 36.8 C 36.7 C Heart Rate 81 Heart Rate [ 98 86 Monitoring electrodes] Respiratory 16 16 16 Rate Blood Pressure 126/64 Blood Pressure 130/80 139/73 H [Right Brachial artery] O2 Saturation 96 94 94 Oxygen O2 Source Room air - EKG (time done) 09:59 EKG releavant findings:: EKG personally interpreted by author of this note. Relevant findings are: Rate: Rate (enter#) (82) Rhythm: Atrial fibrillation [place]: Normal Ischemia: Normal ST segments, ST depression. No: ST elevation c/w ischemia Compare to prior EKG: Unchanged from prior EKG (02/02/23) - Labs Labs: Microbiology 04/14/23 12:50 Occult Blood - Final Stool - Loose Consistency Laboratory Tests 04/14/23 04/14/23 04/14/23 10:17 10:17 10:17 WBC 8.6 RBC 2.28 L Hgb 4.6 L* Hct 17.1 L* MCV 75.0 L MCH 20.2 L MCHC 26.9 L RDW 21.0 H Plt Count 146 MPV 10.2 Neut # (Auto) 6.1 Lymph # (Auto) 1.5 [place] # (Auto) 1.0 Eos # (Auto) 0.1 Baso # (Auto) 0.0 Absolute Nucleated RBC 0.10 Nucleated RBC % 1.2 Manual Slide Review Indicated Platelet Estimate NORMAL (130-450,000) Platelet Morphology NORMAL APPEARANCE RBC Morph Micro Appear 3+ HYPOCHROMASIA PT INR Sodium 135 Potassium 4.2 Chloride 101 Carbon Dioxide 27 Anion Gap 7.0 BUN 45 H Creatinine 1.3 Estimated GFR (MDRD) 53 L Glucose 219 H Calcium 8.9 Magnesium 1.9 Total Bilirubin 0.5 AST 15 ALT 9 L Alkaline Phosphatase 74 Troponin I High Sens 20.4 H* B-Natriuretic Peptide Total Protein 6.2 L Albumin 3.8 Globulin 2.4 Albumin/Globulin Ratio 1.6 Lipase 19 Last Dose Date Last Dose Time Digoxin Blood Type Antibody Screen Crossmatch IS Only 04/14/23 04/14/23 04/14/23 10:17 10:56 11:00 WBC RBC Hgb Hct MCV MCH MCHC RDW Plt Count MPV Neut # (Auto) Lymph # (Auto) Bosque # (Auto) Eos # (Auto) Baso # (Auto) Absolute Nucleated RBC Nucleated RBC % Manual Slide Review Platelet Estimate Platelet Morphology RBC Morph Micro Appear PT 18.5 H INR 1.7 H Sodium Potassium Chloride Carbon Dioxide Anion Gap BUN Creatinine Estimated GFR (MDRD) Glucose Calcium Magnesium Total Bilirubin AST ALT Alkaline Phosphatase Troponin I High Sens B-Natriuretic Peptide Total Protein Albumin Globulin Albumin/Globulin Ratio Lipase Last Dose Date UNKNOWN Last Dose Time UNKNOWN Digoxin 1.0 Blood Type O NEGATIVE Antibody Screen NEGATIVE Crossmatch IS Only See Detail 04/14/23 11:00 WBC RBC Hgb Hct MCV MCH MCHC RDW Plt Count MPV Neut # (Auto) Lymph # (Auto) [place] # (Auto) Eos # (Auto) Baso # (Auto) Absolute Nucleated RBC Nucleated RBC % Manual Slide Review Platelet Estimate Platelet Morphology RBC Morph Micro Appear PT INR Sodium Potassium Chloride Carbon Dioxide Anion Gap BUN Creatinine Estimated GFR (MDRD) Glucose Calcium Magnesium Total Bilirubin AST ALT Alkaline Phosphatase Troponin I High Sens B-Natriuretic Peptide 274 H Total Protein Albumin Globulin Albumin/Globulin Ratio Lipase Last Dose Date Last Dose Time Digoxin Blood Type Antibody Screen Crossmatch IS Only - Rads (name of study) head CT Relevant Findings:: Prelim report reviewed, EMP independent interpretation of test (no iCH nor acute process) angio abd/pelvis Relevant Findings:: Prelim report reviewed (no acute process seen. ), EMP independent interpretation of test chest xray Relevant Findings:: Prelim report reviewed, EMP independent interpretation of test (minimal vascular congestion) PD Medical Decision Making - ED course Complexity details: reviewed results, re-evaluated patient (improved color and general demeanor, interaction with fluids and initial unit RBCs. ), considered differential (consider anemia, GI bleed, electrolyte problems, heart failure, CHF, diabetes, etc. ), d/w patient, d/w family (), d/w oracle distribution consultant (I talked with on-call GI for the patient's [facility]. They were available for outpatient which only follow-up. I talked with on-call for inpatient GI at [facility], Dr. Siu. She felt it appropriate the patient be transferred for more expedited workup. Talked with Dr. Nesbitt) Reviewed Lab Results: The patient's blood count was found to be very low. Previous blood count on our records is from end of January and showed hemoglobin of 9. I talked with GI at [facility] and they did have access to his recent records and is hemoglobin rece ntly was 11. That was 2 and half weeks ago. He has had a notable drop in his hemoglobin. He is quite positive. Given his level of function however with the lowness of the blood count, I am more likely to think slow drop over the couple of weeks. Still would be concern for some element of abrupt blood loss over the last several days given his newer symptoms. We were transfusing him blood here. I ordered 3 units. His blood pressure was slightly low to begin with and improved with some IV fluids even prior to transfusion. He does have a history of congestive failure and atrial fibrillati on and does take diuretics daily. I will interpose a dose of his Bumex IV in between units of blood. At this point he is BNP is only slightly elevated and his chest x-ray does not look fluid overloaded so feels reasonable with transfusing. He is watched on the monitor of course. His EKG was done and showed nonspecific interventricular delay and some nonspecific ST changes. In comparison it was unchanged from January. He was having a headache abruptly today and does take a blood thinner so I did do a CT of the head and there is no signs of acute intracranial bleed or other acute abnormality. Given the current apparent increase in GI bleeding presumably the past week or so and perhaps the last couple of days, I did do a CT angio of the abdomen to see if there is any obvious source of flushing or such. No positive findings were found to localized area of bleeding. This would just did note slower blood loss source. I talked with the manager oracle database at [facility] and then the hospitalist. At this point we are just waiting for [facility] to have a bed available. They were anticipating discharges and said they would be able to accept him in transfer today. - Critical Care Time(min): 65 Time Includes: Direct patient care, Reassess patient (initial assessment, and recurrently with transfusions, wary of evoking CHF or other problems. Wathicng blood sugars frequent. HR and vitals frequent reassessment. ), Coordinate care, Medical consult Data interpretation: Labs, CXR Procedures excluded from critical care time: EKG Departure - Departure Disposition: 02 Transfer Acute Care Hosp Clinical Impression: GI bleeding, Anemia due to acute blood loss, Anticoagulant long-term use, Atrial fibrillation, Headache, CHF (congestive heart failure) Condition: Stable Record reviewed to determine appropriate education?: Yes Forms: PCP List
--- NOTE | 2023-04-14 13:14 | CT Report ---
PROCEDURE: HEAD WO INDICATIONS: vertigo and headache TECHNIQUE: Noncontrast 4.5 mm thick angled axial sections acquired from the foramen magnum to the vertex. For r adiation dose reduction, the following was used: automated exposure control, adjustment of mA and/or kV according to patient size. COMPARISON: 11/05/2018 FINDINGS: Image quality: Excellent. CSF spaces: Basal cisterns are patent. No extra-axial fluid collections. Ventricles are normal in size and shape. Brain: No midline shift. No intracranial masses or hemorrhage. Moderate diffuse cerebral cortical atrophy. Romero-white matter interface is normal. Skull and face: Calvarium and visualized facial bones are intact, without suspicious lesions. Sinuses: Visualized sinuses and mastoids are clear. IMPRESSION: 1. No CT evidence of acute intracranial process. 2. Age-appropriate exam. Reviewed by: Sandy Lindo MD on 04/14/2023 1:12 PM PST Approved by: Sandy Lindo MD on 04/14/2023 1:12 PM PST Station ID: [id number]
[2023-04-14] MEDS ORDERED: iohexoL-300 100 ML VIAL IVP ONE (13:32)
--- NOTE | 2023-04-14 13:34 | CT Report ---
PROCEDURE: ANGIO ABDOMEN/PELVIS W INDICATIONS: GI bleeding, some abd pain CONTRAST: Omni 300 100ml TECHNIQUE: After the administration of intravenous contrast, 2.5 mm thick sections acquired from the diaphragm t o the symphysis. 10 mm maximum-intensity projection (MIP) reformats were then acquired. For radiati on dose reduction, the following was used: automated exposure control, adjustment of mA and/or kV ac cording to patient size. COMPARISON: 02/26/2023. Correlation is also made with the accompanying noncontrast head CT. FINDINGS: Image quality: There is streak artifact seen through the upper abdomen. Aorta: Moderate to prominent atherosclerotic calcification can be seen. No stenosis or aneurysm can be seen. No dissection flap. The celiac axis and the SMA demonstrate normal caliber, without narrowing proximally. Within the supe rior mesenteric artery 5 cm beyond the origin, there is focal calcification seen, with approximately 50% narrowing. The RACHEL likewise is patent. Mesenteric arteries: Celiac trunk, superior and inferior mesenteric arteries appear patent. Right pelvic arteries: Irregular, yet patent. Left pelvic arteries: Stenosis is seen. Extravascular soft tissues: There is a small right-sided pleural effusion and a trace left-sided pleu ral effusion. Heart size is normal. Liver and spleen are normal in size and enhancement. Gallbl[place] r wall does not appear thickened. . Biliary system is non dilated. Pancreas enhances normally. No adrenal nodules. Kidneys are normal in size and enhancement, without hydronephrosis. No hyperdensity can be seen into the bowel to suggest active bleeding at the time of this scan. There is also moderate generalized colonic wall thickening seen, which is overall worst involving the desc ending colon. Diverticulosis can be seen, without kay findings of active diverticulitis. A normal appendix is seen. No dilated loops of small bowel are seen. The stomach is relatively decompressed at the time of this study, limiting its evaluation. No free fluid or air. No retroperitoneal or mesenteric adenopathy. No ventral hernias. No suspicio us bony lesions. No vertebral body compression fractures. Age-appropriate degenerative changes are seen. Mild bilateral fat-containing inguinal hernias are seen. IMPRESSION: No imaging explanation is found for the patient's presenting symptoms. No findings of active contrast extravasation can be seen. No hemodynamically significant stenosis can be seen. Atherosclerotic calcification can be seen throughout, with approximately 50% narrowing seen 5 cm beyo nd the origin of the SMA. Mild bladder wall thickening can be seen throughout the colon. Colitis is suspected. Although ischemi c colitis is possible, please correlate with infectious or inflammatory causes of colitis. Additional findings: Diverticulosis, without findings of active diverticulitis. Normal appendix Mild bilateral fat-containing inguinal hernias Reviewed by: Suman Spaulding MD on 04/14/2023 12:33 PM [facility] Approved by: Suman Spaulding MD on 04/14/2023 12:33 PM [facility] Station ID: [id number]
[2023-04-14] MEDS ORDERED: PANTOPRAZOLE 40 MG VIAL IVP STA ×2 (13:42→14:07)
[2023-04-14 15:53] VITALS: O2SAT 94
[2023-04-14] MEDS ORDERED: BUMETANIDE 1 MG/4 ML VIAL IVP STA ×3 (16:14→17:09)
[2023-04-14 17:24] VITALS: BP 130/80
== END 2023-04-14 17:20 | disposition short-term general hospital (02) ==
LOC: EDUNIT# → ED 08:53
DX: K92.2 Gastrointestinal hemorrhage, unspecified (principal); D62 Acute posthemorrhagic anemia; I48.91 Unspecified atrial fibrillation; R51.9 Headache, unspecified; I11.0 Hypertensive heart disease with heart failure; I50.9 Heart failure, unspecified; E10.9 Type 1 diabetes mellitus without complications; F17.200 Nicotine dependence, unspecified, uncomplicated; Z79.01 Long term (current) use of anticoagulants; Z79.84 Long term (current) use of oral hypoglycemic drugs; Z79.899 Other long term (current) drug therapy
CPT/HCPCS: 36415; 70450; 71045; 74174; 80053; 80162; 82272; 83690; 83735; 83880; 84484; 85025; 85610; 86850; 86900; 86901; 86920; 93005; 96374; 96375; 99285; 99291; A9270; J1170; P9016; P9040; Q9967

== ENCOUNTER 2023-04-14 17:21 | Outpatient (CLI) | payer MEDICARE, BC | END 2023-04-14 17:22 | disposition short-term general hospital (02) | LOC: EMS 17:21 | PROVIDERS: ATTEND Emergency Medicine | DX: K92.2 Gastrointestinal hemorrhage, unspecified (principal); D64.9 Anemia, unspecified; I48.91 Unspecified atrial fibrillation | CPT/HCPCS: A0425; A0427 ==

== ENCOUNTER 2023-05-10 14:03 | Outpatient (CLI) | payer MEDICARE, BC ==
[2023-05-10 14:09] LABS: BASOPHILS % (AUTO) 0.3 %; EOSINOPHILS # (AUTO) 0.2 10^3/uL (0.0-0.7); EOSINOPHILS % (AUTO) 2.2 %; LYMPHOCYTES # (AUTO) 1.7 10^3/uL (1.5-3.5); LYMPHOCYTES % (AUTO) 23.3 %; MEAN CORPUSCULAR HEMOGLOBIN 19.4 pg (27.0-31.0); MEAN CORPUSCULAR HGB CONC 27.1 g/dL (32.0-36.0); MEAN CORPUSCULAR VOLUME 71.3 fL (80.0-94.0); MEAN PLATELET VOLUME 10.1 fL (7.4-11.4); MONOCYTES % (AUTO) 12.8 %; NEUTROPHILS # (AUTO) 4.5 10^3/uL (1.5-6.6); NEUTROPHILS % (AUTO) 60.9 %; NRBC ABSOLUTE COUNT (AUTO) 0.06 x10^3/uL; NUCLEATED RED BLOOD CELLS AUTO 0.8 /100WBC; PLT - PLATELET COUNT 186 10^3/uL (130-450); RED BLOOD COUNT 2.79 10^6/uL (4.70-6.10); WHITE BLOOD COUNT 7.4 x10^3/uL (4.8-10.8)
[2023-05-10 14:50] LABS: DIFFERENTIAL COMMENT Y
[2023-05-10 17:07] LABS: HCT - HEMATOCRIT 19.9 % (42.0-52.0); HGB - HEMOGLOBIN 5.4 g/dL (14.0-18.0)
== END 2023-05-10 14:04 | disposition home or self-care (01) ==
LOC: LAB 14:03 → LAB.R 14:04
PROVIDERS: ATTEND Internal Medicine Transplant Hepatology
DX: K92.2 Gastrointestinal hemorrhage, unspecified (principal)
CPT/HCPCS: 85025

== ENCOUNTER 2023-05-11 10:55 | Emergency (ER) | payer MEDICARE, BC ==
[2023-05-11 11:34] LABS: BASOPHILS % (AUTO) 0.4 %; EOSINOPHILS # (AUTO) 0.2 10^3/uL (0.0-0.7); HCT - HEMATOCRIT 21.5 % (42.0-52.0); LYMPHOCYTES # (AUTO) 1.5 10^3/uL (1.5-3.5); LYMPHOCYTES % (AUTO) 17.4 %; MEAN CORPUSCULAR HEMOGLOBIN 19.7 pg (27.0-31.0); MEAN CORPUSCULAR HGB CONC 26.5 g/dL (32.0-36.0); MEAN CORPUSCULAR VOLUME 74.1 fL (80.0-94.0); MEAN PLATELET VOLUME 10.1 fL (7.4-11.4); MONOCYTES # (AUTO) 1.1 10^3/uL (0.0-1.0); MONOCYTES % (AUTO) 12.9 %; NEUTROPHILS # (AUTO) 5.6 10^3/uL (1.5-6.6); NEUTROPHILS % (AUTO) 66.8 %; NRBC ABSOLUTE COUNT (AUTO) 0.09 x10^3/uL; NUCLEATED RED BLOOD CELLS AUTO 1.1 /100WBC; PLT - PLATELET COUNT 212 10^3/uL (130-450); RED CELL DISTRIBUTION WIDTH 21.3 % (12.0-15.0); WHITE BLOOD COUNT 8.4 x10^3/uL (4.8-10.8)
[2023-05-11 11:37] LABS: HGB - HEMOGLOBIN 5.7 g/dL (14.0-18.0)
[2023-05-11 11:46] LABS: ALBUMIN/GLOBULIN RATIO 1.4 (1.0-2.2); BILIRUBIN,TOTAL 0.8 mg/dL (0.2-1.0); CALCIUM 9.1 mg/dL (8.5-10.3); CREATININE 1.2 mg/dL (0.6-1.3); POTASSIUM 4.6 mmol/L (3.5-4.5); TOTAL PROTEIN 6.8 g/dL (6.4-8.9)
--- NOTE | 2023-05-11 12:41 | ED Physician Documentation ---
History of Present Illness - Stated complaint Stated Complaint: WEAK,LIGHT HEADED - Chief complaint Chief Complaint: General - History obtained from History obtained from: Patient - Additonal information Additional information: 78-year-old male presents for low hemoglobin. Patient states that he has a known slow upper GI bleed and is followed by gastroenterology at [facility]. Patient had laboratory work done yesterday that showed a hemoglobin of 5 and he was referred to the emergency department. Patient states that he stopped his Eliquis yesterday. He reports intermittent black tarry stools, none today. Review of Systems Constitutional: denies: Fever, Chills GI: reports: Bloody / black stool. denies: Abdominal Pain, Nausea, Vomiting, Constipation, Diarrhea, Hematemesis Musculoskeletal: denies: Neck pain, Back pain, Extremity pain, Joint pain, Extremity swelling PD PAST MEDICAL HISTORY - Past Medical History Past Medical History: Yes Cardiovascular: Congestive heart failure, Hypertension, Peripheral Vascular Disease, Atrial fibrillation Respiratory: Sleep apnea, CPAP use Neuro: None Endocrine/Autoimmune: Type 1 diabetes GI: GERD : None, Other HEENT: None Psych: None Musculoskeletal: Chronic back pain Derm: Other - Past Surgical History Past Surgical History: Yes General: Colonoscopy Ortho: Amputation Cardiovascular: Vascular surgery, Other HEENT: Cataracts Derm: Skin cancer surgery - Present Medications Home Medications: Ambulatory Orders Medication Instructions Recorded Confirmed Metformin HCl 1,000 mg PO BIDWM 06/07/15 05/11/23 Pregabalin [Lyrica] 75 mg PO DAILY 11/05/18 05/11/23 Apixaban [Eliquis] 5 mg PO BID 06/05/22 02/02/23 Insulin Glargine,Hum.rec.anlog 20 unit SUBQ 06/05/22 05/11/23 [Basaglar Kwikpen U-100] Ipratropium [Atrovent] 1 puffs INH TID PRN 06/05/22 05/11/23 Melatonin 30 mg PO QPM 06/05/22 05/11/23 Pregabalin [Lyrica] 150 mg PO HS 06/05/22 05/11/23 carvediloL [Coreg] 25 mg PO BIDWM 06/05/22 05/11/23 Acetaminophen [Tylenol] 500 mg PO Q6HR PRN 09/29/22 05/11/23 Bumetanide 4 mg PO DAILY 09/29/22 05/11/23 Capsaicin 0.025% Cream [Trixaicin 1 applic TOP QID PRN 09/29/22 05/11/23 0.025% Cream] Digoxin [Lanoxin] 250 mcg PO DAILY 09/29/22 05/11/23 Isosorbide Mononitrate ER [Imdur] 30 mg PO DAILY 09/29/22 05/11/23 Lidocaine Topical 4% Soln 2 ml TOP DAILY PRN 09/29/22 05/11/23 [Xylocaine Topical 4% Soln] Mometasone Furoate [Asmanex] 2 inh INH QPM 09/29/22 05/11/23 Nystatin/Triamcin 1 gm TOP BID 09/29/22 05/11/23 [Nystatin-Triamcinolone Ointm] glipiZIDE [Glucotrol] 5 mg PO QDAC 09/29/22 02/02/23 hydrALAZINE [Apresoline] 10 mg PO TID 09/29/22 05/11/23 Omeprazole Magnesium 20 mg PO DAILY 02/03/23 05/11/23 Esomeprazole Magnesium [Nexium] 40 mg PO DAILY #30 cap 02/26/23 05/11/23 Famotidine [Pepcid] 20 mg PO BID #60 tablet 02/26/23 05/11/23 Ondansetron Odt [Zofran] 4 mg TL Q6H PRN #10 tablet 02/26/23 05/11/23 Sucralfate [Carafate] 1 gm PO ACHS #60 tablet 02/26/23 05/11/23 oxyCODONE [Roxicodone] 5 mg PO Q6H PRN 05/11/23 05/11/23 - Allergies Allergies/Adverse Reactions: Allergies Allergy/AdvReac Type Severity Reaction Status Date / Time codeine AdvReac Intermediate Hallucinati Verified 05/11/23 11:21 ons guaiacol AdvReac Intermediate Hallucinati Verified 05/11/23 11:21 ons guaifenesin AdvReac Intermediate Hallucinati Verified 05/11/23 11:21 ons promethazine [From Phenergan] AdvReac Intermediate Hallucinati Verified 05/11/23 11:21 ons - Social History Does the pt smoke?: Yes Smoking Status: Current every day smoker Does the pt drink ETOH?: Yes Does the pt have substance abuse?: No - Immunizations Immunizations are current?: Yes - POLST Patient has POLST: No PD ED PE NORMAL - Vitals Vital signs reviewed: Yes - General General: Alert and oriented X 3, No acute distress, Well developed/nourished - Cardiac Cardiac: RRR, Strong equal pulses - Respiratory Respiratory: No respiratory distress, Clear bilaterally - Abdomen Abdomen: Soft, Non tender, Non distended - Derm Derm: Normal color, Warm and dry, No rash - Extremities Extremities: No deformity, No tenderness to palpate, Normal ROM s pain - Neuro Neuro: Alert and oriented X 3, 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, No motor deficit, Normal speech - Psych Psych: Normal mood, Normal affect Results - Vitals Vitals: Oxygen O2 Source Room air - Labs Labs: Laboratory Tests 05/11/23 05/11/23 05/11/23 11:20 11:20 11:38 WBC 8.4 RBC 2.90 L Hgb 5.7 L* Hct 21.5 L MCV 74.1 L MCH 19.7 L MCHC 26.5 L RDW 21.3 H Plt Count 212 MPV 10.1 Neut # (Auto) 5.6 Lymph # (Auto) 1.5 Collin # (Auto) 1.1 H Eos # (Auto) 0.2 Baso # (Auto) 0.0 Absolute Nucleated RBC 0.09 Nucleated RBC % 1.1 Sodium 134 L Potassium 4.6 H Chloride 99 L Carbon Dioxide 27 Anion Gap 8.0 BUN 37 H Creatinine 1.2 Estimated GFR (MDRD) 58 L Glucose 173 H Calcium 9.1 Total Bilirubin 0.8 AST 10 ALT 6 L Alkaline Phosphatase 115 Total Protein 6.8 Albumin 4.0 Globulin 2.8 Albumin/Globulin Ratio 1.4 Blood Type O NEGATIVE Antibody Screen NEGATIVE Crossmatch IS Only See Detail 05/11/23 05/11/23 19:24 23:33 WBC RBC Hgb 6.6 L* 7.2 L Hct 23.7 L 26.2 L MCV MCH MCHC RDW Plt Count MPV Neut # (Auto) Lymph # (Auto) Collin # (Auto) Eos # (Auto) Baso # (Auto) Absolute Nucleated RBC Nucleated RBC % Sodium Potassium Chloride Carbon Dioxide Anion Gap BUN Creatinine Estimated GFR (MDRD) Glucose Calcium Total Bilirubin AST ALT Alkaline Phosphatase Total Protein Albumin Globulin Albumin/Globulin Ratio Blood Type Antibody Screen Crossmatch IS Only PD Medical Decision Making - ED course Complexity details: reviewed old records, reviewed results, re-evaluated patient, considered differential, d/w patient, d/w network security consultant ED course: Patient with known slow upper GI bleed presenting for low hemoglobin. Hemodynamically stable. Type and screen sent to lab. Hgb 5.7. Blood products ordered for transfusion. Based on patient history of known upper GI bleed as well as the intention for endoscopy in the near future plan is to contact patient's GI doctor Ronald Granda through the [facility] system. I discussed the patient's case with the on-call GI doctor at [facility], who states that per patient's chart review he has a small bowel slow GI bleed and there was plans for a push enteroscopy, which is the scheduled test on 05/20. On-call physician recommended transfer to [facility] to expedite the intended study since the patient is experiencing intermittent melena as well as a multi-unit drop in hemoglobin since his last GI visit. I discussed the recommendations with the patient and his at bedside. Patient and adamantly declined transfer due to multiple reasons. They reported frustration that the last time this happened the patient did not get the necessary study at [facility], in addition they do not have any reliable transportation and they do not want to go down to [place]. I explained that we do not have the necessary equipment or specialty here it would [place] and if they refuse transport and they would have to leave AGAINST MEDICAL ADVICE after receiving transfusion. Patient and are in agreement and they state that they will call their GI doctor first thing saturday morning for follow up. Patient was previously on Eliquis, he has stopped this medication since yesterday at the advice of GI. - Critical Care Time(min): 59 Time Includes: Direct patient care, Review records, Reassess patient, Document care, Coordinate care, Medical consult, Family consult for tx dec, See progress note Data interpretation: Labs, Pulse ox, Cardiac output Departure - Departure Disposition: 07 Against Medical Advice Clinical Impression: Blood loss anemia Condition: Stable Instructions: ED Anemia Type Not Specified Comments: FOLLOW UP SOON POSSIBLE WITH YOUR GI DOCTOR Forms: PCP List Discharge Date/Time: 05/12/23 00:20
[2023-05-11 19:32] LABS: HCT - HEMATOCRIT 23.7 % (42.0-52.0)
[2023-05-11 19:35] LABS: HGB - HEMOGLOBIN 6.6 g/dL (14.0-18.0)
--- NOTE | 2023-05-11 19:47 | ED Physician Documentation ---
ED Addendum - Addendum Addendum: 05/11/23 19:46 Patient's repeat hemoglobin and hematocrit after 2 units of blood came back at 6.6. The patient still adamantly does not want to be transferred for any further testing and treatment of his upper GI bleed. He is still adamant that he understands that he may if he goes home. He does agree to receive another unit of blood here. Therefore another unit of blood was ordered. This was discussed with both the patient and his . 05/11/23 21:33 The patient is receiving his third unit of blood, CBC will be rechecked after third unit. [facility], Dr. Saldivar. Patient still does not want to go to [facility] for definitive care. Patient still states he understands the risks of this and accepts the risks including .
[2023-05-11 23:06] VITALS: BP 121/59; O2SAT 95
[2023-05-11 23:41] LABS: HCT - HEMATOCRIT 26.2 % (42.0-52.0); HGB - HEMOGLOBIN 7.2 g/dL (14.0-18.0)
--- NOTE | 2023-05-12 08:59 | ED Physician Documentation ---
ED Addendum - Addendum Addendum: 05/12/23 08:55 Received signout/turnover of care from Dr. Mccallum at the end of his shift who, in turn, received signout from Dr. Cornell. Please refer to Dr. Cornell's note for complete H&P. In brief, patient presents for anemia due to ongoing GI bleeding. He is transfused 3 units packed red blood cells in the ED tonight. Early in his ED stay, the patient made it clear that he intended to refuse inpatient treatment and/or transfer to another hospital for inpatient treatment. An AGAINST MEDICAL ADVICE form has already been reviewed with the patient by Dr. Mccallum and signed by the patient. On my shift, the third unit of packed red blood cells has completed transfusion, and repeat hemoglobin is 7.2 (5.7 on initial presentation, increased to 6.6 after the second unit). He is AAOx3, he is in NAD. I reviewed the results of the H&H with him and his (who is in the ED at patient's bedside). He confirms once again that he wishes to leave A at this time. He expresses understanding that he can, and should, return at any time he wishes to be reevaluated, in particular if symptoms worsen.
== END 2023-05-12 00:20 | disposition left against medical advice (07) ==
LOC: ED 10:55
DX: D50.0 Iron deficiency anemia secondary to blood loss (chronic) (principal); K92.2 Gastrointestinal hemorrhage, unspecified; F17.200 Nicotine dependence, unspecified, uncomplicated; Z53.29 Procedure and treatment not carried out because of patient's decision for other reasons
CPT/HCPCS: 36415; 36430; 80053; 85014; 85018; 85025; 86850; 86900; 86901; 86920; 99291; P9016; P9040

== ENCOUNTER 2023-06-04 14:17 | Outpatient (CLI) | payer MEDICARE, BC | END 2023-06-04 14:18 | disposition critical access hospital (66) | LOC: EMS 14:17 | DX: R06.02 Shortness of breath (principal); R53.1 Weakness; R05.9 Cough, unspecified; R53.83 Other fatigue; R68.83 Chills (without fever); R51.9 Headache, unspecified | CPT/HCPCS: A0425; A0429 ==

== ENCOUNTER 2023-06-04 14:41 | Emergency (ER) | payer MEDICARE, BC ==
[2023-06-04 15:26] LABS: BASOPHILS # (AUTO) 0.1 10^3/uL (0.0-0.1); BASOPHILS % (AUTO) 0.4 %; EOSINOPHILS % (AUTO) 0.1 %; HCT - HEMATOCRIT 24.8 % (42.0-52.0); LYMPHOCYTES # (AUTO) 1.4 10^3/uL (1.5-3.5); LYMPHOCYTES % (AUTO) 11.4 %; MEAN CORPUSCULAR HEMOGLOBIN 19.1 pg (27.0-31.0); MEAN CORPUSCULAR HGB CONC 26.6 g/dL (32.0-36.0); MEAN CORPUSCULAR VOLUME 71.9 fL (80.0-94.0); MEAN PLATELET VOLUME 9.4 fL (7.4-11.4); MONOCYTES # (AUTO) 1.5 10^3/uL (0.0-1.0); MONOCYTES % (AUTO) 11.9 %; NEUTROPHILS # (AUTO) 9.4 10^3/uL (1.5-6.6); NEUTROPHILS % (AUTO) 75.8 %; NRBC ABSOLUTE COUNT (AUTO) 0.02 x10^3/uL; NUCLEATED RED BLOOD CELLS AUTO 0.2 /100WBC; PLT - PLATELET COUNT 183 10^3/uL (130-450); RED BLOOD COUNT 3.45 10^6/uL (4.70-6.10); RED CELL DISTRIBUTION WIDTH 22.6 % (12.0-15.0); WHITE BLOOD COUNT 12.4 x10^3/uL (4.8-10.8)
[2023-06-04 15:28] LABS: HGB - HEMOGLOBIN 6.6 g/dL (14.0-18.0)
--- NOTE | 2023-06-04 15:37 | ED Physician Documentation ---
History of Present Illness - Stated complaint Stated Complaint: CHILLS - Chief complaint Chief Complaint: General - History obtained from History obtained from: Patient - Additonal information Additional information: Patient is a 6-day 8-year-old male with a history of A-fib, congestive heart failure, GI bleed presenting for evaluation of feeling generalized weakness and shortness of air. Patient states that he was having symptoms over the weekend. On Saturday he did have outpatient labs and was reportedly called at some point and told that he has a hemoglobin of 6.9. However he states he was not directed to the emergency department or anywhere for blood transfusion. He states he has had a cough over the weekend and generally feels weak. The patient's called and provides further history. Patient had an EGD on May 20 at [facility] and there were 2 sources of bleeding that were clipped. He saw his PCP for regular follow-up appointment on Saturday and had labs done which showed a hemoglobin of 6.9. They were contacted on Saturday. They were not directed to go to the emergency department or to return anywhere for transfusion.PCPs office did call today to tell them to stop the Eliquis. They were also planning on arranging for an iron infusion for him. Patient's says that patient did resume the Eliquis after his procedures. He has not taken any of his medications today. states that she has been checking his stools and has not noticed any black or bloody stools. confirms that he is a DNR/DNI Review of Systems Constitutional: denies: Fever Cardiac: denies: Chest pain / pressure Respiratory: reports: Dyspnea, Cough GI: denies: Vomiting Neurologic: reports: Generalized weakness PD PAST MEDICAL HISTORY - Past Medical History Past Medical History: Yes Cardiovascular: Congestive heart failure, Hypertension, Peripheral Vascular Disease, Atrial fibrillation Respiratory: Sleep apnea, CPAP use Neuro: None Endocrine/Autoimmune: Type 1 diabetes GI: GERD : None, Other HEENT: None Psych: None Musculoskeletal: Chronic back pain Derm: Other - Past Surgical History Past Surgical History: Yes General: Colonoscopy Ortho: Amputation Cardiovascular: Vascular surgery, Other HEENT: Cataracts Derm: Skin cancer surgery - Present Medications Home Medications: Ambulatory Orders Medication Instructions Recorded Confirmed Metformin HCl 1,000 mg PO BIDWM 06/07/15 05/11/23 Pregabalin [Lyrica] 75 mg PO DAILY 11/05/18 05/11/23 Insulin Glargine,Hum.rec.anlog 20 unit SUBQ HS 06/05/22 05/11/23 [Damián Menendezdeshawn U-100] Ipratropium [Atrovent] 1 puffs INH TID PRN 06/05/22 05/11/23 Melatonin 30 mg PO QPM 06/05/22 05/11/23 Pregabalin [Lyrica] 150 mg PO HS 06/05/22 05/11/23 carvediloL [Coreg] 25 mg PO BIDWM 06/05/22 05/11/23 Acetaminophen [Tylenol] 500 mg PO Q6HR PRN 09/29/22 05/11/23 Bumetanide 4 mg PO DAILY 09/29/22 05/11/23 Capsaicin 0.025% Cream [Trixaicin 1 applic TOP QID PRN 09/29/22 05/11/23 0.025% Cream] Digoxin [Lanoxin] 250 mcg PO DAILY 09/29/22 05/11/23 Isosorbide Mononitrate ER [Imdur] 30 mg PO DAILY 09/29/22 05/11/23 Lidocaine Topical 4% Soln 2 ml TOP DAILY PRN 09/29/22 05/11/23 [Xylocaine Topical 4% Soln] Mometasone Furoate [Asmanex] 2 inh INH QPM 09/29/22 05/11/23 Nystatin/Triamcin 1 gm TOP BID 09/29/22 05/11/23 [Nystatin-Triamcinolone Ointm] glipiZIDE [Glucotrol] 5 mg PO QDAC 09/29/22 02/02/23 hydrALAZINE [Apresoline] 10 mg PO TID 09/29/22 05/11/23 Omeprazole Magnesium 20 mg PO DAILY 02/03/23 05/11/23 Esomeprazole Magnesium [Nexium] 40 mg PO DAILY #30 cap 02/26/23 05/11/23 Famotidine [Pepcid] 20 mg PO BID #60 tablet 02/26/23 05/11/23 Ondansetron Odt [Zofran] 4 mg TL Q6H PRN #10 tablet 02/26/23 05/11/23 Sucralfate [Carafate] 1 gm PO ACHS #60 tablet 02/26/23 05/11/23 oxyCODONE [Roxicodone] 5 mg PO Q6H PRN 05/11/23 05/11/23 - Allergies Allergies/Adverse Reactions: Allergies Allergy/AdvReac Type Severity Reaction Status Date / Time codeine AdvReac Intermediate Hallucinati Verified 06/04/23 15:08 ons guaiacol AdvReac Intermediate Hallucinati Verified 06/04/23 15:08 ons guaifenesin AdvReac Intermediate Hallucinati Verified 06/04/23 15:08 ons promethazine [From Phenergan] AdvReac Intermediate Hallucinati Verified 06/04/23 15:08 ons - Social History Does the pt smoke?: Yes Smoking Status: Current every day smoker Does the pt drink ETOH?: Yes Does the pt have substance abuse?: No - Immunizations Immunizations are current?: Yes - POLST Patient has POLST: No PD ED PE NORMAL - General General: Alert and oriented X 3, No acute distress, Well developed/nourished - HEENT HEENT: Atraumatic - Neck Neck: Supple, no meningeal sign - Cardiac Cardiac: Strong equal pulses, Other (Irregularly irregular, normal rate) - Respiratory Respiratory: No respiratory distress, Other (Coarse breath sounds bilaterally) - Abdomen Abdomen: Normal bowel sounds, Soft, Non tender, Non distended - Extremities Extremities: Other (Bilateral lower extremity edema) - Neuro Neuro: Alert and oriented X 3, No motor deficit, Normal speech Results - Vitals Vitals: Vital Signs - 24 hr 06/04/23 06/04/23 06/04/23 15:05 15:08 16:59 Temperature 37.2 C 36.5 C Heart Rate 61 78 Heart Rate [ 67 Monitoring electrodes] Respiratory 18 17 17 Rate Blood Pressure 110/61 115/69 Blood Pressure 124/53 L [Left] O2 Saturation 96 95 94 06/04/23 06/04/23 06/04/23 17:11 17:16 17:54 Temperature 36.4 C L 36.4 C L 36.4 C L Heart Rate Heart Rate [ 70 68 88 Monitoring electrodes] Respiratory 18 18 18 Rate Blood Pressure Blood Pressure 112/64 112/69 120/71 [Left] O2 Saturation 95 95 97 06/04/23 06/04/23 06/04/23 18:30 18:57 20:08 Temperature 36.4 C L 36.5 C Heart Rate 71 80 Heart Rate [ 70 Monitoring electrodes] Respiratory 16 17 18 Rate Blood Pressure 113/63 114/57 L Blood Pressure 113/63 [Left] O2 Saturation 98 95 97 Oxygen O2 Source Room air - EKG (time done) 1519 EKG releavant findings:: EKG personally interpreted by author of this note. Relevant findings are: Rate 71, atrial fibrillation, no STEMI, Mild ST depressions in lateral leads (Depressions are less pronounced than on prior EKG from March 2023) - Labs Labs: Laboratory Tests 06/04/23 06/04/23 06/04/23 13:20 15:19 15:19 WBC 12.4 H RBC 3.45 L Hgb 6.6 L* Hct 24.8 L MCV 71.9 L MCH 19.1 L MCHC 26.6 L RDW 22.6 H Plt Count 183 MPV 9.4 Neut # (Auto) 9.4 H Lymph # (Auto) 1.4 L Centre # (Auto) 1.5 H Eos # (Auto) 0.0 Baso # (Auto) 0.1 Absolute Nucleated RBC 0.02 Nucleated RBC % 0.2 Sodium Potassium Chloride Carbon Dioxide Anion Gap BUN Creatinine Estimated GFR (MDRD) Glucose Calcium Total Bilirubin AST ALT Alkaline Phosphatase B-Natriuretic Peptide Total Protein Albumin Globulin Albumin/Globulin Ratio Lipase Nasal Adenovirus (PCR) NOT DETECTED Nasal B. parapertussis DNA (PCR) NOT DETECTED Nasal Coronavir 229E PCR NOT DETECTED Nasal Coronavir HKU1 PCR NOT DETECTED Nasal Coronavir NL63 PCR NOT DETECTED Nasal Coronavir OC43 PCR NOT DETECTED Nasal Enterovir/Rhinovir PCR NOT DETECTED Nasal Influenza B PCR NOT DETECTED Nasal Influenza A PCR NOT DETECTED Nasal Parainfluen 1 PCR NOT DETECTED Nasal Parainfluen 2 PCR NOT DETECTED Nasal Parainfluen 3 PCR NOT DETECTED Nasal Parainfluen 4 PCR NOT DETECTED Nasal RSV (PCR) NOT DETECTED Nasal B.pertussis DNA PCR NOT DETECTED Nasal C.pneumoniae (PCR) NOT DETECTED Nam Human Metapneumo PCR NOT DETECTED Nasal M.pneumoniae (PCR) NOT DETECTED Nasal SARS-CoV-2 (PCR) NOT DETECTED Blood Type O NEGATIVE Antibody Screen NEGATIVE Crossmatch IS Only See Detail 06/04/23 06/04/23 15:19 15:19 WBC RBC Hgb Hct MCV MCH MCHC RDW Plt Count MPV Neut # (Auto) Lymph # (Auto) Centre # (Auto) Eos # (Auto) Baso # (Auto) Absolute Nucleated RBC Nucleated RBC % Sodium 136 Potassium 3.5 Chloride 99 L Carbon Dioxide 31 Anion Gap 6.0 BUN 31 H Creatinine 1.3 Estimated GFR (MDRD) 53 L Glucose 186 H Calcium 9.2 Total Bilirubin 2.0 H AST 14 ALT 7 L Alkaline Phosphatase 109 B-Natriuretic Peptide 471 H Total Protein 6.4 Albumin 3.6 Globulin 2.8 Albumin/Globulin Ratio 1.3 Lipase < 10 L Nasal Adenovirus (PCR) Nasal B. parapertussis DNA (PCR) Nasal Coronavir 229E PCR Nasal Coronavir HKU1 PCR Nasal Coronavir NL63 PCR Nasal Coronavir OC43 PCR Nasal Enterovir/Rhinovir PCR Nasal Influenza B PCR Nasal Influenza A PCR Nasal Parainfluen 1 PCR Nasal Parainfluen 2 PCR Nasal Parainfluen 3 PCR Nasal Parainfluen 4 PCR Nasal RSV (PCR) Nasal B.pertussis DNA PCR Nasal C.pneumoniae (PCR) Nam Human Metapneumo PCR Nasal M.pneumoniae (PCR) Nasal SARS-CoV-2 (PCR) Blood Type Antibody Screen Crossmatch IS Only PD Medical Decision Making - ED course Complexity details: reviewed results, re-evaluated patient, d/w patient, d/w family ED course: Pt with history of anemia and CHF presenting for evaluation of SOA and weakness. Told a few days ago his hemoglobin was 6.9 but no directions to come to ER for transfusion. Pt has some findings of CHF on exam. Labs including CBC, chemistries, BNP reviewed. Hgb 6.6. - low but not a significant drop from labs a few days ago. Denies melena or bloody stools. With no significant drop in Hgb over few days, doubt acute GI bleed. BNP 471. WBC 12. Chest XR which I reviewed suggests CHF. Pt given dose of bumex and 1 unit PRBC ordered. Pt signed out to Dr. Mccallum at shift change. Plan for re-eval after transfusion and discharge. Departure - Departure Disposition: 01 Home, Self Care Clinical Impression: Acute on chronic anemia Condition: Stable Instructions: ED Anemia Type Not Specified Follow-Up: your,doctor tomorrow [Other] Comments: Please follow-up with your primary care provider regarding your anemia. You were given a unit of blood today to help boost up your hemoglobin levels. You should have this rechecked and also consider the iron transfusion that they were discussing with you. Return to the ER with any worsening symptoms. The [facility] clinic can be reached at [phone] extension [phone] Forms: PCP List
[2023-06-04 15:40] LABS: ALBUMIN 3.6 g/dL (3.2-5.5); ALBUMIN/GLOBULIN RATIO 1.3 (1.0-2.2); ALKALINE PHOSPHATASE 109 IU/L (42-121); ALT ALANINE AMINOTRANSFERASE 7 IU/L (10-60); AST ASPARTATE AMINOTRANSFERASE 14 IU/L (10-42); BUN - BLOOD UREA NITROGEN 31 mg/dL (6-20); CALCIUM 9.2 mg/dL (8.5-10.3); CARBON DIOXIDE - CO2 31 mmol/L (21-32); CHLORIDE 99 mmol/L (101-111); CREATININE 1.3 mg/dL (0.6-1.3); GFR - MDRD 53 (>89); GLUCOSE 186 mg/dL (74-104); POTASSIUM 3.5 mmol/L (3.5-4.5); SODIUM 136 mmol/L (135-145); TOTAL PROTEIN 6.4 g/dL (6.4-8.9)
--- NOTE | 2023-06-04 15:52 | XRAY Report ---
PROCEDURE: Chest 1V INDICATIONS: cough/SOA TECHNIQUE: One view of the chest was acquired. COMPARISON: 04/14/2023 FINDINGS: Surgical changes and devices: Cardiac clip. Lungs and pleura: Mild diffuse lung disease. No dense consolidation or pleural effusion. The right c ostophrenic angle is not seen. Mediastinum: Mild cardiomegaly. Bones and chest wall: Degenerative changes. IMPRESSION: Mild diffuse lung disease likely edema or atypical infection. Cardiomegaly is present. Consider futur e imaging surveillance to assess for resolution. Reviewed by: Sujit sAh MD on 06/04/2023 3:51 PM PST Approved by: Sujit Ash MD on 06/04/2023 3:51 PM PST Station ID: [id number]
[2023-06-04 15:54] LABS: LIPASE < 10 U/L (11-82)
[2023-06-04] MEDS: BUMETANIDE 1 MG/4 ML VIAL IVP STA (16:19)
[2023-06-04 16:41] LABS: B. PARAPERTUSSIS- RESP PCR PAN NOT DETECTED; B. PERTUSSIS- RESP PCR PANEL NOT DETECTED; C. PNEUMONIAE- RESP PCR PANEL NOT DETECTED; CORONAVIRUS 229E-RESP PCR NOT DETECTED; CORONAVIRUS HKU1-RESP PCR NOT DETECTED; CORONAVIRUS NL63-RESP PCR NOT DETECTED; CORONAVIRUS OC43-RESP PCR NOT DETECTED; HUMAN METAPNEUMOVIRUS NOT DETECTED; INFLUENZA A- RESP PCR PANEL NOT DETECTED; INFLUENZA B - RESP PCR PANEL NOT DETECTED; M. PNEUMONIAE- RESP PCR PANEL NOT DETECTED; PARAINFLUENZA VIRUS 1 NOT DETECTED; PARAINFLUENZA VIRUS 2 NOT DETECTED; PARAINFLUENZA VIRUS 3 NOT DETECTED; PARAINFLUENZA VIRUS 4 NOT DETECTED; RHINOVIRUS/ENTEROVIRUS NOT DETECTED; RSV- RESP PCR PANEL NOT DETECTED; SARS-CoV-2 -RESP PCR PANEL NOT DETECTED
--- NOTE | 2023-06-04 19:59 | ED Physician Documentation ---
ED Addendum - Addendum Addendum: 06/04/23 19:54 78-year-old male was signed out to me by Dr. Hackett awaiting blood transfusion to finish. His transfusion finished. This should get him back to his normal baseline of hemoglobin. Patient states he feels much better. No complaints. No shortness of breath. No itching. No fevers. Recommend that he follow-up closely with his doctor for further care. Patient will return if he worsens. Departure - Departure Disposition: 01 Home, Self Care Clinical Impression: Acute on chronic anemia Condition: Stable Instructions: ED Anemia Type Not Specified Follow-Up: your,doctor tomorrow [Other] Comments: Please follow-up with your primary care provider regarding your anemia. You were given a unit of blood today to help boost up your hemoglobin levels. You should have this rechecked and also consider the iron transfusion that they were discussing with you. Return to the ER with any worsening symptoms. The [facility] can be reached at [phone] extension [phone] Forms: PCP List
[2023-06-04 20:10] VITALS: BP 114/57; O2SAT 97
== END 2023-06-04 20:15 | disposition home or self-care (01) ==
LOC: EDUNIT# → ED 14:41
DX: D50.0 Iron deficiency anemia secondary to blood loss (chronic) (principal); I11.0 Hypertensive heart disease with heart failure; I50.9 Heart failure, unspecified; I48.91 Unspecified atrial fibrillation; E10.9 Type 1 diabetes mellitus without complications; Z79.84 Long term (current) use of oral hypoglycemic drugs; Z79.4 Long term (current) use of insulin; F17.200 Nicotine dependence, unspecified, uncomplicated; Z66 Do not resuscitate
CPT/HCPCS: 36415; 36430; 71045; 80053; 83690; 83880; 85025; 86850; 86900; 86901; 86920; 87633; 93005; 96374; 99283; 99285; P9016

== ENCOUNTER 2023-06-14 08:00 | Outpatient (CLI) | payer MEDICARE, BC ==
[2023-06-14 14:34] LABS: BASOPHILS % (AUTO) 0.4 %; EOSINOPHILS # (AUTO) 0.2 10^3/uL (0.0-0.7); EOSINOPHILS % (AUTO) 2.9 %; HCT - HEMATOCRIT 28.9 % (42.0-52.0); HGB - HEMOGLOBIN 7.7 g/dL (14.0-18.0); LYMPHOCYTES # (AUTO) 1.3 10^3/uL (1.5-3.5); LYMPHOCYTES % (AUTO) 17.1 %; MEAN CORPUSCULAR HEMOGLOBIN 21.1 pg (27.0-31.0); MEAN CORPUSCULAR HGB CONC 26.6 g/dL (32.0-36.0); MEAN CORPUSCULAR VOLUME 79.2 fL (80.0-94.0); MONOCYTES % (AUTO) 13.3 %; NEUTROPHILS # (AUTO) 4.8 10^3/uL (1.5-6.6); NEUTROPHILS % (AUTO) 65.1 %; PLT - PLATELET COUNT 282 10^3/uL (130-450); RED BLOOD COUNT 3.65 10^6/uL (4.70-6.10); RED CELL DISTRIBUTION WIDTH 28.7 % (12.0-15.0); WHITE BLOOD COUNT 7.3 x10^3/uL (4.8-10.8)
[2023-06-14 14:39] LABS: SLIDE REVIEW? Indicated
[2023-06-14 14:58] LABS: PLATELET ESTIMATE, MANUAL NORMAL (130-450,000) (NORMAL); PLATELET MORPHOLOGY NORMAL APPEARANCE (NORMAL)
== END 2023-06-14 23:59 | disposition home or self-care (01) ==
LOC: LAB.R 08:00
PROVIDERS: ATTEND Internal Medicine
DX: D50.0 Iron deficiency anemia secondary to blood loss (chronic) (principal)
CPT/HCPCS: 85025

== ENCOUNTER 2023-06-17 08:00 | Outpatient (CLI) | payer MEDICARE, BC | END 2023-06-17 23:59 | disposition home or self-care (01) | LOC: LAB.R 08:00 | PROVIDERS: ATTEND Emergency Medicine Undersea and Hyperbaric Medicine | DX: L03.032 Cellulitis of left toe (principal) | CPT/HCPCS: 87070; 87077; 87205 ==

== ENCOUNTER 2023-07-12 08:00 | Outpatient (CLI) | payer MEDICARE, BC ==
[2023-07-15 10:44] LABS: BASOPHILS % (AUTO) 0.4 %; EOSINOPHILS % (AUTO) 3.8 %; HCT - HEMATOCRIT 32.9 % (42.0-52.0); HGB - HEMOGLOBIN 8.5 g/dL (14.0-18.0); LYMPHOCYTES % (AUTO) 26.6 %; MEAN CORPUSCULAR HEMOGLOBIN 20.2 pg (27.0-31.0); MEAN CORPUSCULAR HGB CONC 25.8 g/dL (32.0-36.0); MEAN CORPUSCULAR VOLUME 78.3 fL (80.0-94.0); MEAN PLATELET VOLUME 9.7 fL (7.4-11.4); MONOCYTES % (AUTO) 13.4 %; NEUTROPHILS % (AUTO) 55.7 %; PLT - PLATELET COUNT 230 10^3/uL (130-450); RED CELL DISTRIBUTION WIDTH 23.1 % (12.0-15.0)
[2023-07-15 10:45] LABS: EOSINOPHILS # (AUTO) 0.3 10^3/uL (0.0-0.7); LYMPHOCYTES # (AUTO) 1.9 10^3/uL (1.5-3.5); MONOCYTES # (AUTO) 0.9 10^3/uL (0.0-1.0); NEUTROPHILS # (AUTO) 3.9 10^3/uL (1.5-6.6); SLIDE REVIEW? Indicated
[2023-07-15 10:46] LABS: PLATELET ESTIMATE, MANUAL NORMAL (130-450,000) (NORMAL)
== END 2023-07-12 23:59 | disposition home or self-care (01) ==
LOC: LAB.R 08:00
PROVIDERS: ATTEND Internal Medicine
DX: D50.0 Iron deficiency anemia secondary to blood loss (chronic) (principal)
CPT/HCPCS: 85025

== ENCOUNTER 2023-07-26 08:00 | Outpatient (CLI) | payer MEDICARE, BC ==
[2023-07-26 16:17] LABS: BASOPHILS % (AUTO) 0.4 %; EOSINOPHILS % (AUTO) 3.1 %; HGB - HEMOGLOBIN 7.4 g/dL (14.0-18.0); LYMPHOCYTES % (AUTO) 30.2 %; MEAN CORPUSCULAR HEMOGLOBIN 19.6 pg (27.0-31.0); MEAN CORPUSCULAR HGB CONC 26.4 g/dL (32.0-36.0); MEAN CORPUSCULAR VOLUME 74.1 fL (80.0-94.0); MEAN PLATELET VOLUME 10.1 fL (7.4-11.4); MONOCYTES % (AUTO) 13.4 %; NEUTROPHILS % (AUTO) 52.6 %; PLT - PLATELET COUNT 178 10^3/uL (130-450); RED BLOOD COUNT 3.78 10^6/uL (4.70-6.10); RED CELL DISTRIBUTION WIDTH 21.9 % (12.0-15.0)
[2023-07-26 16:26] LABS: ABNORMAL LYMPHS % (MANUAL) 0 %
[2023-07-26 16:48] LABS: BAND NEUTROPHILS % (MANUAL) 1 %; EOSINOPHILS # (MANUAL) 0.1 10^3/uL (0-0.7); LYMPHOCYTES % (MANUAL) 21 %; MONOCYTES # (MANUAL) 0.8 10^3/uL (0.0-1.0); NEUTROPHILS # (MANUAL) 4.1 10^3/uL (1.5-6.6); REACTIVE LYMPHS % (MANUAL) 8 %
[2023-07-26 16:49] LABS: DIFFERENTIAL COMMENT MANUAL DIFFERENTIAL; PLATELET ESTIMATE, MANUAL NORMAL (130-450,000) (NORMAL); PLATELET MORPHOLOGY NORMAL APPEARANCE (NORMAL)
== END 2023-07-26 23:59 | disposition home or self-care (01) ==
LOC: LAB.R 08:00
PROVIDERS: ATTEND Internal Medicine
DX: D50.0 Iron deficiency anemia secondary to blood loss (chronic) (principal)
CPT/HCPCS: 85025

== ENCOUNTER 2025-03-01 08:20 | Inpatient (IN) ==
--- NOTE | 2025-03-01 08:44 | ED Physician Documentation ---
History of Present Illness Stated complaint Stated Complaint: WEAKNESS POST FALL Chief complaint Chief Complaint: General History obtained from History obtained from: Patient and EMS Additonal information Additional information: The patient comes to the emergency department via EMS for chief complaint of ground-level fall and confusion. The patient remembers having trouble getting out of bed, but does not really remember the events of the fall. EMS states that the told them that he normally is able to handle his medications himself including his insulin and is fairly with it. He did just have his meds switched from oxycodone 5 mg to Percocet and gabapentin after seeing his doctor on February 25. He just started the new medication regimen yesterday. The patient apparently had a trip and fall that was witnessed by the but then was left on the floor for 5 hours. Is not exactly clear why as the has not arrived with the patient to give any history. The patient denies any complaints at this time. He does not remember hitting his head and he denies any neck pain. No chest pain. No hip or back pain. He has a history of A-fib. Medics state his blood sugar was 161 and route. No other complaints at this time. Meds/Allgy Home Medications Ambulatory Orders Medication Instructions Recorded Confirmed pregabalin 75 mg capsule (Lyrica) 75 mg PO DAILY 11/0503/01/25 carvedilol 25 mg tablet (Coreg) 25 mg PO BIDWM 3 03/01/25 insulin glargine 100 unit/mL (3 15 unit subcut BID 11/1803/01/25 mL) subcutaneous pen (Basaglar KwikPen U-100 Insulin) melatonin 10 mg disintegrating 30 mg PO QPM 06/05/22 1 05/01/24 tablet pregabalin 75 mg capsule (Lyrica) 150 mg PO HS 3 03/01/25 acetaminophen 500 mg tablet 500 mg PO Q6HR PRN Minor P ain 09/29/22 03/01/25 bumetanide 2 mg tablet 4 mg PO DAILY 09/29/2203/01 capsaicin 0.025 % topical cream 1 applic topical QID P RN Minor Pain 09/29/22 03/01/25 digoxin 250 mcg (0.25 mg) tablet 125 mcg PO DAILY 07/1903/01/25 (Lanoxin) lidocaine HCl 4 % (40 mg/mL) 2 ml topical DAILY PRN Mi nor Pain 09/29/22 06/06/23 mucosal solution mometasone 220 mcg/actuation(60 2 inh inhalation QPM P RN Shortness 09/29/22 03/01/25 doses) breath activated powder Of Air/Wheezing inhaler (Asmanex Twisthaler) nystatin-triamcinolone 100,000 1 g topical BID 3 03/01/25 unit/gram-0.1 % topical ointment omeprazole magnesium 20 mg 20 mg PO DAILY 02/03/2307/21 capsule,delayed release diclofenac potassium 50 mg tablet 50 mg PO BID 5 03/01/25 diclofenac sodium 1 % topical gel 2 g topical QID 07/2103/01/25 (Arthritis Pain (diclofenac)) empagliflozin 10 mg tablet 10 mg PO DAILY 03/01/2507/21 (Jardiance) gabapentin 300 mg capsule 300 mg PO BID 03/01/2503/01 oxycodone-acetaminophen 7.5 mg-325 1 tab PO Q4H PRN pa in 03/01/25 03/01/25 mg tablet (Endocet) Allergies Allergies Allergy/AdvReac Type Severity Reaction Status Date / Time codeine AdvReac Intermediate Hallucinati Verified 03/01/25 09:20 ons guaiacol AdvReac Intermediate Hallucinati Verified 03/01/25 09:20 ons guaifenesin AdvReac Intermediate Hallucinati Verified 03/01/25 09:20 ons promethazine (From Phenergan) AdvReac Intermediate Hallucinati Verified 03/01/25 09:20 ons PFSH Active Problems All Active Problems (Updated 03/01/25 @ 11:45 by Miguelina Moncada MD) Dehydration (Acute) Renal insufficiency (Acute) Hyperkalemia (Acute) Cellulitis (Acute) UTI (urinary tract infection) (Acute) Sepsis (Acute) S/P mitral valve clip implantation (Acute) Acute kidney injury superimposed on CKD (Acute) Symptomatic anemia (Acute) Dyspnea (Acute) Mild chronic obstructive pulmonary disease (Acute) Influenza A (Acute) Atrial fibrillation (Acute) Muscle strain of right thigh (Acute) Syncope (Acute) Hypoglycemia associated with diabetes (Acute) Hypotension (Acute) Rib fracture (Acute) Anticoagulant long-term use (Acute) Head contusion (Acute) Right foot infection (Acute) Pubic ramus fracture (Acute) Prostate cancer (Acute) Hyperkalemia (Acute) Anemia (Acute) Microcytic anemia (Acute) MATTIE (acute kidney injury) (Acute) Leg edema (Acute) Chronic ulcer of leg (Acute) Acute respiratory failure with hypoxia (Acute) Acute bronchitis (Acute) CHF exacerbation (Acute) Cor pulmonale (Acute) NOEL on CPAP (Acute) DM type 2 (diabetes mellitus, type 2) (Acute) Social History Social History (Updated 03/01/25 @ 09:19 by Erik Pradhan, RN, BSN) Smoking Status: Current every day smoker Number of Years Smoked: 60 How many cigarettes a day do you smoke? (20 cigarettes=1 Pk): 20 Do you dip or chew tobacco?: No Do you vape?: No Patient requests smoking cessation consult: No Initiate information on smoking cessation: No Living arrangement: At home Living Condition: With spouse/s.o. Level: Independent Do you feel safe in your home environment?: Yes History of physical, verbal, emotional, or financial abuse?: No ETOH Use: Wine Frequency: Occasional Substance Use: denies use Are you sexually active?: No POLST Patient has POLST: No Exam Exam Vital Signs: Vital Signs x48h Temp Pulse Resp BP Pulse Ox 03/01/25 09:00 36.6 C 88 16 105/61 03/01/25 08:30 36.2 C L 80 14 93/59 L 97 Constitutional normal general appearance and no apparent distress [facility] normocephalic, head/scalp atraumatic, external nose normal and oral mucous membranes normal Eyes EOMs intact bilaterally Neck/C-Spine visual inspection normal, cervical spine nontender and supple Chest palpation of chest normal Respiratory breath sounds equal bilaterally, normal respiratory effort and clear to auscultation bilaterally Cardiovascular Irregularly irregular heart rhythm, 3 out of 6 systolic murmur. Gastrointestinal abdomen normal to inspection, abdomen soft to palpation, nontender to palpation and nondistended Genitourinary no CVA tenderness Back/Pelvis spine normal to inspection Extremities Marked edema of right lower extremity compared to left. Tender to palpation over the right calf. Some pain with range of motion of right hip, though difficult to tell whether the pain is coming from the lower leg or from the hip itself, as patient cannot specify. Neurology Alert, grossly intact Psychiatry mental status grossly normal Skin Mild erythema globally right lower extremity Results Vitals Vitals: Vital Signs - 24 hr 03/01/25 08:30 03/01/25 09:00 Temperature 36.2 C L 36.6 C Temperature Source Temporal Artery Scan Oral Pulse Rate 80 88 Respiratory Rate 14 16 Blood Pressure 93/59 L 105/61 O2 Saturation 97 O2 Source Room air Room air Pain Intensity 3 2 Oxygen O2 Source Room air Labs Labs: Laboratory Tests 03/01/25 03/01/25 03/01/25 08:44 08:44 09:53 WBC 37.9 H* RBC 4.17 L Hgb 8.7 L Hct 30.8 L MCV 73.9 L MCH 20.9 L MCHC 28.2 L RDW 19.7 H Plt Count 225 MPV 9.8 Neut # (Auto) Not Reportable Lymph # (Auto) Not Reportable [place] # (Auto) Not Reportable Eos # (Auto) Not Reportable Baso # (Auto) Not Reportable Absolute Nucleated RBC Not Reportable Total Counted 100 Band Neuts % (Manual) 14 H Abnorm Lymph % (Manual) 0 Metamyelocytes % 1 H Nucleated RBC % Not Reportable Neutrophils # (Manual) 33.4 H Lymphocytes # (Manual) 1.5 Monocytes # (Manual) 2.7 H Eosinophils # (Manual) 0.0 Basophils # (Manual) 0.0 Differential Comment MANUAL DIFFERENTIAL WBC Morphology 2+ TOXIC GRANULATION Platelet Estimate NORMAL (130-450,000) RBC Morph Micro Appear 4+ ANISOCYTOSIS 2+ MICROCYTOSIS Sodium 130 L Potassium 6.2 H* Chloride 99 L Carbon Dioxide 24 Anion Gap 7.0 BUN 42 H Creatinine 2.4 H Estimated GFR (MDRD) 26 L Glucose 160 H Calcium 8.9 Total Bilirubin 0.9 AST 20 ALT 12 Alkaline Phosphatase 58 Total Creatine Kinase 138 Total Protein 6.7 Albumin 3.8 Globulin 2.9 Albumin/Globulin Ratio 1.3 Lipase < 10 L TSH 0.80 Urine Color YELLOW Urine Clarity CLOUDY Urine pH 6.0 Ur Specific [place] 1.015 Urine Protein TRACE Urine Glucose (UA) 500 H Urine Ketones NEGATIVE Urine Occult Blood T Urine Nitrite POSITIVE H Urine Bilirubin NEGATIVE Urine Urobilinogen 0.2 (NORMAL) Ur Leukocyte Esterase SMALL H Urine RBC 0-5 Urine WBC >25 H Ur Squamous Epith Cells RARE Squamous Urine Bacteria Few Ur Microscopic Review INDICATED Urine Culture Comments INDICATED PD Medical Decision Making ED course Complexity details: reviewed old records, reviewed results, considered differential and d/w patient ED course: Patient was worked up with labs, EKG, CTs of the head neck and right hip, and ultrasound of the right lower extremity. He was given IV fluids. His CTs of the head, neck, and right hip were unremarkable for acute findings. His ultrasound of the right lower extremity was negative for DVT. Laboratory studies showed a white blood cell count of 37,000. He was also found to be hyperkalemic at 6.2, without EKG changes. He was also found to have an elevated BUN and creatinine at 42 and 2.4, which was changed from normal a year and a half ago. The patient was given 2 L of 0.9 normal saline in the emergency department. His EKG other than not showing changes associated with hyperkalemia, did demonstrate atrial fibrillation which is an existing problem for the patient. Patient was started on Rocephin and vancomycin. Blood cultures were drawn and sent also. I discussed case with Dr. Rubin who is on- call for hospitalist service and he did agree to admit patient to his service. Discharge Plan Discharge Patient Disposition: 65 [facility] DC/Xfer Condition: Serious Clinical Impression: UTI (urinary tract infection), Cellulitis, Hyperkalemia, Renal insufficiency, Dehydration Prescriptions: No Action pregabalin [Lyrica] 75 MG capsule 75 mg PO DAILY carvedilol [Coreg] 25 MG tablet 25 mg PO BIDWM pregabalin [Lyrica] 75 MG capsule 150 mg PO HS Rx Instructions: PT TAKES 75MG IN THE MORNING AND 150MG AT BEDTIME. insulin glargine [Basaglar KwikPen U-100 Insulin] 100 UNIT/ML insulin pen 15 unit subcut BID melatonin 10 MG tablet,disintegrating 30 mg PO QPM bumetanide 2 MG tablet 4 mg PO DAILY Patient Comments: take 2 tablets by mouth once daily acetaminophen 500 MG tablet 500 mg PO Q6HR PRN (Reason: Minor Pain) digoxin [Lanoxin] 250 MCG tablet 125 mcg PO DAILY lidocaine HCl 50 ML solution 2 ml topical DAILY PRN (Reason: Minor Pain) nystatin-triamcinolone 15 GM ointment 1 g topical BID capsaicin 60 APPLIC/60 GM cream 1 applic topical QID PRN (Reason: Minor Pain) Asmanex Twisthaler 220 MCG aerosol powdr breath activated 2 inh inhalation QPM PRN (Reason: Shortness Of Air/Wheezing) omeprazole magnesium 20 MG capsule,delayed release(DR/EC) 20 mg PO DAILY diclofenac sodium [Arthritis Pain (diclofenac)] 1 % gel 2 g topical QID Rx Instructions: apply to single elbow, wrist or hand; for hand includes palm/fingers/back of hand diclofenac potassium 50 mg tablet 50 mg PO BID gabapentin 300 mg capsule 300 mg PO BID Patient Comments: TAKE 1 CAPSULE BY MOUTH TWICE A DAY Jardiance 10 mg tablet 10 mg PO DAILY oxycodone-acetaminophen [Endocet] 7.5-325 mg tablet 1 tab PO Q4H PRN (Reason: pain) Print Language: Tristanian
[2025-03-01 08:50] LABS: HCT - HEMATOCRIT 30.8 % (42.0-52.0); HGB - HEMOGLOBIN 8.7 g/dL (14.0-18.0); MEAN PLATELET VOLUME 9.8 fL (7.4-11.4); PLT - PLATELET COUNT 225 10^3/uL (130-450); RED CELL DISTRIBUTION WIDTH 19.7 % (12.0-15.0)
[2025-03-01 08:56] LABS: ABNORMAL LYMPHS % (MANUAL) 0 %; BASOPHILS # (MANUAL) 0.0 10^3/uL (0-0.1); EOSINOPHILS # (MANUAL) 0.0 10^3/uL (0-0.7)
[2025-03-01] MEDS: SODIUM CHLORIDE 0.9% 1,000 ML IV STA ×3 (08:59→13:12)
[2025-03-01 09:12] LABS: CK- CREATINE KINASE 138 IU/L (30-223)
[2025-03-01 09:17] LABS: BAND NEUTROPHILS % (MANUAL) 14 %; LYMPHOCYTES # (MANUAL) 1.5 10^3/uL (1.5-3.5); LYMPHOCYTES % (MANUAL) 4 %; METAMYELOCYTES % (MANUAL) 1 %; MONOCYTES # (MANUAL) 2.7 10^3/uL (0.0-1.0); NEUTROPHILS # (MANUAL) 33.4 10^3/uL (1.5-6.6)
[2025-03-01 09:19] LABS: PLATELET ESTIMATE, MANUAL NORMAL (130-450,000) (NORMAL); WBC MORPHOLOGY (MULTIPLE) 2+ TOXIC GRANULATION (NORMAL)
[2025-03-01 09:22] LABS: ALT ALANINE AMINOTRANSFERASE 12 IU/L (10-60); AST ASPARTATE AMINOTRANSFERASE 20 IU/L (10-42); BUN - BLOOD UREA NITROGEN 42 mg/dL (6-20); CARBON DIOXIDE - CO2 24 mmol/L (21-32); CREATININE 2.4 mg/dL (0.6-1.3); GFR - MDRD 26 (>89)
--- NOTE | 2025-03-01 10:04 | CT Report ---
PROCEDURE: CT Head WO INDICATIONS: GLF/confused TECHNIQUE: CT of the head was performed, without intravenous contrast. Reformats: Coronal and sagittal. For radiation dose reduction, the following was used: automated exposure control, adjustment of mA and/or kV according to patient size. COMPARISON: None. FINDINGS: Image quality: Diagnostic. CSF spaces: Basal cisterns are patent. No extra-axial fluid collections. Ventricles are symmetric in size and shape. Brain: No midline shift. No intracranial masses or hemorrhage. [place] small calcification in the dorsal shiv hypodensities in the subcortical and periventricular white matter are most commonly seen in setting of chronic microvascular ischemic changes. Age-related cerebral and cerebellar volume loss is seen. Intracranial vascular calcifications are noted in the internal carotid arteries. Skull and face: Calvarium and visualized facial bones are intact, without suspicious lesions. Sinuses: A mucous retention cyst is seen in the left maxillary sinus IMPRESSION: No acute intracranial pathology. Reviewed by: Erik Park MD on 03/01/2025 10:01 AM [facility] Approved by: Erik Park MD on 03/01/2025 10:01 AM PST Station ID: [id number]
--- NOTE | 2025-03-01 10:07 | CT Report ---
PROCEDURE: CT Cervical Spine WO INDICATIONS: GLF/poss head strike/confused TECHNIQUE: Noncontrast images acquired from the skull base to the T4 level. Sagittal and coronal reformats were then constructed. For radiation dose reduction, the following was used: automated exposure control, adjustment of mA and/or kV according to patient size. COMPARISON: CT cervical spine dated 11/05/2018 FINDINGS: Image quality: Excellent. Bones: No acute fractures or dislocations. A T1 compression is chronic. Diffuse osteopenia. Severe cervical spondylitic change. Multilevel facet arthropathy and uncovertebral joint hypertrophy. Multilevel bony foraminal narrowing. This is most severe on the left at C5-C6. There is a degree of canal stenosis at C5-C6. Visualized superior ribs are intact. Soft tissues: Prevertebral soft tissues are normal in thickness. No paravertebral hematomas. No apical pneumothoraxes. IMPRESSION: No acute, displaced fracture or traumatic subluxation. Severe cervical spondylosis. Chronic T1 compression Diffuse osteopenia. Reviewed by: Mateusz Herrera MD on 03/01/2025 10:04 AM [facility] Approved by: Mateusz Herrera MD on 03/01/2025 10:04 AM PST Station ID: [id number]
--- NOTE | 2025-03-01 10:14 | CT Report ---
PROCEDURE: CT Lower Extremity RT WO INDICATIONS: hip pain after fall TECHNIQUE: CT scan of the right hip was performed without contrast. Coronal and sagittal reformats were constructed. For radiation dose reduction, the following was used: automated exposure control, adjustment of mA and/or kV according to patient size. COMPARISON: CTA 04/14/2023 FINDINGS: Image quality: Excellent. Bones: Geographic sclerotic appearance of the anterosuperior right femoral head is compatible with chronic osteonecrosis and does not appear significantly changed when compared to the prior CT from 04/14/2023. No articular surface collapse is seen. Moderate degenerative changes are seen in the right hip with marginal osteophytes. Included portions of the right pelvic bones are intact. No proximal femoral fracture is seen. Soft tissues: No significant hip effusion. No soft tissue hematoma is seen. Mild nonspecific subcutaneous edema is seen anterior and lateral to the right hip. Enlarged right inguinal and external iliac lymph nodes are present. Included pelvic soft tissues demonstrate no acute abnormality. Diffuse atherosclerotic calcifications. IMPRESSION: 1. No acute osseous abnormality. 2. 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 3. Moderate right hip osteoarthrosis. 4. Nonspecific subcutaneous edema anterior and lateral to the right hip. No hematoma. 5. Mildly enlarged right inguinal and right external iliac lymph nodes are of uncertain etiology. Correlate for any known right lower extremity infectious/inflammatory or neoplastic process. Reviewed by: Erik Park MD on 03/01/2025 10:11 AM PST Approved by: Erik Park MD on 03/01/2025 10:11 AM PST Station ID: [id number]
[2025-03-01 10:17] LABS: GLUCOSE, URINE (UA) 500 mg/dL (NEGATIVE); KETONES,URINE (UA) NEGATIVE (NEGATIVE); OCCULT BLOOD,URINE T (NEGATIVE)
[2025-03-01] MEDS ORDERED: cefTRIAXone 2 GM in SODIUM CHLORIDE 0.9% MINIBAG 100 ML IV STA (10:55)
[2025-03-01 10:56] LABS: SQUAMOUS EPITHELIAL CELL,UR RARE Squamous (<= Few)
--- NOTE | 2025-03-01 11:15 | Ultrasound Report ---
PROCEDURE: US Venous Duplex RT INDICATIONS: swelling TECHNIQUE: Real-time imaging, as well as color and pulse Doppler interrogation, were performed of the lower extremity deep veins from the inguinal ligament to the popliteal fossa. Attempted visualization of the calf veins was performed. COMPARISON: None. FINDINGS: The deep veins are normally compressible, and free of intraluminal thrombus. Color and pulse Doppler demonstrate normal phasic intraluminal flow. There is normal augmentation response to distal compression maneuver. Calf veins not seen due to soft tissue edema. Mildly prominent right inguinal nodes. IMPRESSION: No deep venous thrombosis of the visualized lower extremity. Calf veins not seen due to edema. Reviewed by: Debra Gaytan MD on 03/01/2025 11:11 AM PST Approved by: Debra Gaytan MD on 03/01/2025 11:11 AM PST Station ID: [id number]
[2025-03-01] MEDS: BACITRACIN ZINC OINT 1 PACKET TOP STA (11:17)
--- OUTSIDE RECORDS SUMMARY | 2025-03-01 12:19 | EXTERNAL MEDICAL SUMMARY RPT | Continuity of Care Document ---
Author Organization [facility] Address [address] [place] [address] [place] [id number] Phone Problems date description facility 2025-03-01 11:45 Sepsis, unspecified organism [facility] Results/Labs test date facility value unit notes Result panel 1 LIPASE 2025-03-01 08:44 [facility] < 10 u/l As of October 2022 testing method has changed, this may include reference ranges. ABNORMAL LYMPHS % (MANUAL) 2025-03-01 08:44 [facility] 0 % (missing) BASOPHILS # (MANUAL) 2025-03-01 08:44 [facility] 0.0 10 3/ul (missing) EOSINOPHILS # (MANUAL) 2025-03-01 08:44 [facility] 0.0 10 3/ul (missing) THYROID STIMULATING HORMONE 2025-03-01 08:44 [facility] 0.80 uiu/ml (missing) BILIRUBIN,TOTAL 2025-03-01 08:44 [facility] 0.9 mg/dl As of October 2022 testing method has changed, this may include reference ranges. METAMYELOCYTES % (MANUAL) 2025-03-01 08:44 [facility] 1 % (missing) ALBUMIN/GLOBULIN RATIO 2025-03-01 08:44 [facility] 1.3 (missin g) (missing) LYMPHOCYTES # (MANUAL) 2025-03-01 08:44 [facility] 1.5 10 3/ul (missing) TOTAL CELLS COUNTED 2025-03-01 08:44 [facility] 100 (missin g) (missing) ALT ALANINE AMINOTRANSFERASE 2025-03-01 08:44 [facility] 12 iu/l As of October 2022 testing method has changed, this may include reference ranges. SODIUM 2025-03-01 08:44 [facility] 130 mmol/l (missing) CK- CREATINE KINASE 2025-03-01 08:44 [facility] 138 iu/l As of October 2022 testing method has changed, this may include reference ranges. BAND NEUTROPHILS % (MANUAL) 2025-03-01 08:44 [facility] 14 % (missing) GLUCOSE 2025-03-01 08:44 [facility] 160 mg/dl As of October 2022 testing method has changed, this may include reference ranges. RED CELL DISTRIBUTION WIDTH 2025-03-01 08:44 [facility] 19.7 % (missing) RBC MORPHOLOGY (MULTIPLE) 2025-03-01 08:44 [facility] 2+ MICROCYTOSIS (missin g) (missing) WBC MORPHOLOGY (MULTIPLE) 2025-03-01 08:44 [facility] 2+ TOXIC GRANULATION (missin g) (missing) CREATININE 2025-03-01 08:44 [facility] 2.4 mg/dl As of October 2022 testing method has changed, this may include reference ranges. MONOCYTES # (MANUAL) 2025-03-01 08:44 [facility] 2.7 10 3/ul (missing) GLOBULIN 2025-03-01 08:44 [facility] 2.9 g/dl (missing) AST ASPARTATE AMINOTRANSFERASE 2025-03-01 08:44 [facility] 20 iu/l As of October 2022 testing method has changed, this may include reference ranges. MEAN CORPUSCULAR HEMOGLOBIN 2025-03-01 08:44 [facility] 20.9 pg (missing) PLT - PLATELET COUNT 2025-03-01 08:44 [facility] 225 10 3/ul (missing) CARBON DIOXIDE - CO2 2025-03-01 08:44 [facility] 24 mmol/l As of October 2022 testing method has changed, this may include reference ranges. GFR - MDRD 2025-03-01 08:44 [facility] 26 (missin g) The IDMS-traceable MDRD Study Equation has been validated extensively in and populations between the ages of 18 and 70 with impaired kidney function (eGFR < 60 mL/min/1.73m2) and has shown good performance for patients with all common causes of kidney disease. Although this equation has not been validated for patients older than 70, an MDRD-derived eGFR may still be a useful tool for providers caring for patients older than 70. References: http://www.nkde p.nih.gov/lab-e valuation/gfr/c reatinine-stand ardization, last updated June 2011. MEAN CORPUSCULAR HGB CONC 2025-03-01 08:44 [facility] 28.2 g/dl (missing) ALBUMIN 2025-03-01 08:44 [facility] 3.8 g/dl As of October 2022 testing method has changed, this may include reference ranges. HCT - HEMATOCRIT 2025-03-01 08:44 [facility] 30.8 % (missing) NEUTROPHILS # (MANUAL) 2025-03-01 08:44 [facility] 33.4 10 3/ul (missing) WHITE BLOOD COUNT 2025-03-01 08:44 [facility] 37.9 x10 3/ul Called to JOHN Solis/RN/ED by Rafael Alcala M.T.([facility]) at 0853 03/01/25. Read back(Y/N)? Y RBC MORPHOLOGY (MULTIPLE) 2025-03-01 08:44 [facility] 4+ ANISOCYTOSIS (missin g) (missing) RED BLOOD COUNT 2025-03-01 08:44 [facility] 4.17 10 6/ul (missing) BUN - BLOOD UREA NITROGEN 2025-03-01 08:44 [facility] 42 mg/dl As of October 2022 testing method has changed, this may include reference ranges. ALKALINE PHOSPHATASE 2025-03-01 08:44 [facility] 58 iu/l As of October 2022 testing method has changed, this may include reference ranges. POTASSIUM 2025-03-01 08:44 [facility] 6.2 mmol/l Critical result K 6.2 mmol/L called to and read back by JOHN Mccartney/RN/ED at 01-Mar-2025 09:22 by thea. As of October 2022 testing method has changed, this may include reference ranges. TOTAL PROTEIN 2025-03-01 08:44 [facility] 6.7 g/dl As of October 2022 testing method has changed, this may include reference ranges. ANION GAP 2025-03-01 08:44 [facility] 7.0 (missin g) (missing) MEAN CORPUSCULAR VOLUME 2025-03-01 08:44 [facility] 73.9 fl (missing) HGB - HEMOGLOBIN 2025-03-01 08:44 [facility] 8.7 g/dl (missing) CALCIUM 2025-03-01 08:44 [facility] 8.9 mg/dl As of October 2022 testing method has changed, this may include reference ranges. MEAN PLATELET VOLUME 2025-03-01 08:44 [facility] 9.8 fl (missing) CHLORIDE 2025-03-01 08:44 [facility] 99 mmol/l As of October 2022 testing method has changed, this may include reference ranges. DIFFERENTIAL COMMENT 2025-03-01 08:44 [facility] MANUAL [facility]FFERENTIAL [facility] (missing) PLATELET ESTIMATE, MANUAL 2025-03-01 08:44 [facility] NORMAL (130-450,000) ([facility]) (missing) Result panel 2 WBC,URINE 2025-03-01 09:53 [facility] >25 /hpf (missing) RBC,URINE 2025-03-01 09:53 [facility] 0-5 /hpf (missing) UROBILINOGEN,URIN E 2025-03-01 09:53 [facility] 0.2 (NORMAL) e.u./dl (missing) SPECIFIC GRAVITY,URINE 2025-03-01 09:53 [facility] 1.015 (missing) (missing) GLUCOSE, URINE (UA) 2025-03-01 09:53 [facility] 500 mg/dl (missing) PH,URINE 2025-03-01 09:53 [facility] 6.0 ph (missing) CLARITY,URINE 2025-03-01 09:53 [facility] CLOUDY (missing) (missing) BACTERIA,URINE 2025-03-01 09:53 [facility] Few /hpf (missing) UR CULTURE IF IND 2025-03-01 09:53 [facility] INDICATED (missing) (missing) URINE MICROSCOPIC INDICATED? 2025-03-01 09:53 [facility] INDICATED (missing) (missing) BILIRUBIN,URINE 2025-03-01 09:53 [facility] NEGATIVE (missing) Bilirubin can be influenced by color interference. Please correlate positive results with clinical presentation KETONES,URINE (UA) 2025-03-01 09:53 [facility] NEGATIVE mg/dl (missing) NITRITE,URINE 2025-03-01 09:53 [facility] POSITIVE (missing) (missing) SQUAMOUS EPITHELIAL CELL,UR 2025-03-01 09:53 [facility] RARE Squamous (missing) (missing) LEUKOCYTE ESTERASE, URINE 2025-03-01 09:53 [facility] SMALL (missing) (missing) OCCULT BLOOD,URINE 2025-03-01 09:53 [facility] T (missing) (missing) PROTEIN,URINE 2025-03-01 09:53 [facility] TRACE mg/dl (missing) COLOR,URINE 2025-03-01 09:53 [facility] YELLOW (missing) URINE CATHETERIZED Social History date description facility
[2025-03-01] MEDS ORDERED: oxyCODONE 5 MG TABLET PO PRN (12:28)
[2025-03-01] MEDS ORDERED: ONDANSETRON 4 MG/2 ML VIAL IVP PRN (12:28)
[2025-03-01] MEDS ORDERED: ONDANSETRON ODT 4 MG TABLET TL PRN (12:28)
[2025-03-01] MEDS ORDERED: SODIUM CHLORIDE FLUSH 0.9% 10 ML SYRINGE IVP PRN (12:28)
--- NOTE | 2025-03-01 12:40 | HISTORY & PHYSICAL EXAMINATION ---
Chief Complaint Chief Complaint Chief Complaint: Fall at home History of Present Illness Admitted From Admitted From:: ED [facility] History obtained from: Patient, spouse, EMR History of Present Illness HPI Comment/Other: Mr. 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 He was on the ground for several hours prior to his , EMS. Patient's shares that he was feeling unwell as of last night. No particular complaints, but just felt malaise. He did not eat dinner last night. She tried to feed him soup and he refused. He then later in the night slipped out of his recliner and remained on the ground for the remainder of the night. She is unclear what precipitated his fall. Patient is unclear on what precipitated his fall. He denies any fevers or chills. Denies chest pain, nausea, vomiting. Denies any abdominal pain. He is reporting some troubles taking deep breaths. On arrival to the ED, the patient is in relatively stable condition. He has scan of his hip, head, abdomen and pelvis in the ED which does not reveal any acute fractures. He was found in the ED to have nitrite positive urine, no history of colonization. He also has a inflamed, erythematous, edematous, painful right lower extremity suggestive of nonpurulent cellulitis. His white count on arrival is 38K and left shifted. Hemoglobin 8.7. PLT 225 there was no imaging of the right lower leg. Remainder of his labs reveal MATTIE, baseline creatinine around 1.3, up to 2.4. Hyperkalemia 6.2. Sodium 130. Blood glucose remarkably normal 160. Meds/Allgy Home Medications Ambulatory Orders Medication Instructions Recorded Confirmed pregabalin 75 mg capsule (Lyrica) 150 mg PO HS 9 03/01/25 carvedilol 25 mg tablet (Coreg) 25 mg PO BIDWM 3 03/01/25 insulin glargine 100 unit/mL (3 30 unit subcut BID 11/1803/01/25 mL) subcutaneous pen (Basaglar KwikPen U-100 Insulin) acetaminophen 500 mg tablet 500 mg PO Q6HR PRN Minor P ain 09/29/22 03/01/25 bumetanide 2 mg tablet 2 mg PO DAILY 09/29/2203/01 capsaicin 0.025 % topical cream 1 applic topical QID P RN Minor Pain 09/29/22 03/01/25 digoxin 250 mcg (0.25 mg) tablet 250 mcg PO DAILY 07/1903/01/25 (Lanoxin) mometasone 220 mcg/actuation(60 2 inh inhalation QPM P RN Shortness 09/29/22 03/01/25 doses) breath activated powder Of Air/Wheezing inhaler (Asmanex Twisthaler) nystatin-triamcinolone 100,000 1 g topical BID 3 03/01/25 unit/gram-0.1 % topical ointment aspirin 81 mg tablet,delayed 81 mg PO DAILY 03/01/25 1 05/01/24 release (Adult Low Dose Aspirin) diclofenac sodium 50 mg 50 mg PO BID 03/01/25 tablet,delayed release empagliflozin 10 mg tablet 10 mg PO DAILY 03/01/2507/21 (Jardiance) gabapentin 300 mg capsule 300 mg PO BID 03/01/2503/01 oxycodone-acetaminophen 7.5 mg-325 1 tab PO Q4H PRN pa in 03/01/25 03/01/25 mg tablet (Endocet) pregabalin 75 mg capsule 75 mg PO DAILY 03/01/2507/21 Allergies Allergies Allergy/AdvReac Type Severity Reaction Status Date / Time codeine AdvReac Intermediate Hallucinati Verified 03/01/25 09:20 ons guaiacol AdvReac Intermediate Hallucinati Verified 03/01/25 09:20 ons guaifenesin AdvReac Intermediate Hallucinati Verified 03/01/25 09:20 ons promethazine (From Phenergan) AdvReac Intermediate Hallucinati Verified 03/01/25 09:20 ons PFSH Active Problems All Active Problems (Updated 03/01/25 @ 15:17 by Mainor Rubin DO) Dehydration (Acute) Renal insufficiency (Acute) Hyperkalemia (Acute) Cellulitis (Acute) UTI (urinary tract infection) (Acute) Sepsis (Acute) S/P mitral valve clip implantation (Acute) Acute kidney injury superimposed on CKD (Acute) Symptomatic anemia (Acute) Dyspnea (Acute) Mild chronic obstructive pulmonary disease (Acute) Influenza A (Acute) Atrial fibrillation (Acute) Muscle strain of right thigh (Acute) Syncope (Acute) Hypoglycemia associated with diabetes (Acute) Hypotension (Acute) Rib fracture (Acute) Anticoagulant long-term use (Acute) Head contusion (Acute) Right foot infection (Acute) Pubic ramus fracture (Acute) Prostate cancer (Acute) Hyperkalemia (Acute) Anemia (Acute) Microcytic anemia (Acute) MATTIE (acute kidney injury) (Acute) Leg edema (Acute) Chronic ulcer of leg (Acute) Acute respiratory failure with hypoxia (Acute) Acute bronchitis (Acute) CHF exacerbation (Acute) Cor pulmonale (Acute) NOEL on CPAP (Acute) DM type 2 (diabetes mellitus, type 2) (Acute) Social History Social History (Updated 03/01/25 @ 09:19 by Erik Pradhan, RN, BSN) Smoking Status: Current every day smoker Number of Years Smoked: 63 How many cigarettes a day do you smoke? (20 cigarettes=1 Pk): 20 Do you dip or chew tobacco?: No Do you vape?: No Patient requests smoking cessation consult: No Initiate information on smoking cessation: No Living arrangement: At home Living Condition: With spouse/s.o. Level: Assisted Home Mobility Equipment: Cane Do you feel safe in your home environment?: Yes History of physical, verbal, emotional, or financial abuse?: No ETOH Use: Wine Frequency: Occasional Substance Use: denies use Are you sexually active?: No POLST Patient has POLST: No Review of Systems Status of ROS: See HPI Exam Exam Vital Signs: Vital Signs x48h Temp Pulse Resp BP Pulse Ox 03/01/25 12:01 91 14 111/54 L 94 03/01/25 09:00 36.6 C 88 16 105/61 03/01/25 08:30 36.2 C L 80 14 93/59 L 97 GEN: No acute distress, fatigued appearing, well-developed HEENT: NC/AT, normal appearance of external ears and nose. Hearing baseline. Cardiac: Regular rate and rhythm, no murmurs. No visible JVP elevation. Pulm: Diffuse centrilobular rhonchi and wheezing. Normal effort on room air. Normal saturations on room air. No cough or purulent sputum Abdomen: Soft, nontender, nondistended. Bowel sounds present. Extremities: Moves all 4 extremities equally. Normal tone. Erythema and edema isolated to the right lower extremity between the ankle and the knee, with warmth and redness. Surgically absent toes on bilateral feet. Healing callus on the lateral aspect of the right sole. Surgical scar on the medial calf of the right leg. Neuro: Face symmetric, CN II through XII intact grossly. No focal neurologic deficits. Chronic bilateral lower extremity sensory deficits consistent with diabetic polyneuropathy. Psych: Mood euthymic. Affect appropriate. Oriented x 3. Sepsis Event Note (H) Evaluation Current Stage of Sepsis: Severe sepsis Possible source of Sepsis: positive Genitourinary and Skin/soft tissue Sepsis Criteria Sepsis Criteria: Recorded Heart Rate greater than 90 bpm, WBC count greater than 10% bands, WBC count greater than 12,000 or less than 4000 and Metabolic: lactate > 2 mmol/L Conclusion/Plan Problem List (1) Sepsis: Plan: Patient meeting sepsis criteria with profound leukocytosis of 38K. Briefly tachycardic with HR 91. His blood pressures were initially soft on arrival, but never was hypotensive. Never had SBP less than 90. MAP's remained greater than 65. Two potential sources as below. He received ample fluid resuscitation in the ED, in fact he is showing signs of volume overload at this time and will likely get some diuretic as below. Lactate mildly elevated at 2.1. - F/U BCx from 03/01, NGTD - Abx as below - Maintain MAP>65 - Hold off on further fluid boluses as below - Monitor CBC in AM - Will get PT evaluation this hospitalization given his fall at home, normally fairly independent with a cane Qualifiers: Acute renal failure type: unspecified Sepsis acute organ dysfunction status: with acute organ dysfunction Sepsis type: sepsis due to unspecified organism Severe sepsis acute organ dysfunction type: acute renal failure S evere sepsis shock status: without septic shock Qualified Code(s): A41.9 - Sepsis, unspecified organism; R65.20 - Severe sepsis without septic shock; N17.9 - Acute kidney failure, unspecified (2) UTI (urinary tract infection): Plan: Patient presenting with sepsis as above. Was found to have nitrite positive urine, WBC, LE and a few bacteria. Glucose in his urine, consistent with his SGLT2i - Will hold his Jardiance - Started on ceftriaxone for empiric treatment - Follow-up urine culture tailor therapy - Otherwise empirically treat for 5 days Qualifiers: Hematuria presence: without hematuria Urinary tract infection type: a cute cystitis Qualified Code(s): N30.00 - Acute cystitis without hematuria (3) Cellulitis: Plan: Patient is diabetic as below. He presents with a red hot and inflamed right lower extremity. It is painful to touch. Tender. His does not know when it first started. He has no open wounds on his right lower extremity, but he has a healing callus on the base of the right foot. Noncontiguous with the cellulitis. - Started on vancomycin for purulent cellulitis - Will erlinda borders of cellulitis - Tylenol for pain - CK not elevating, no concerns about myositis - If failing to improve, may need more advanced imaging his right lower extremity. Qualifiers: Laterality: right Site of cellulitis: extremity Site of cellulitis of extremity: lower extremity Qualified Code(s): L03.115 - Cellulitis of right lower limb (4) Hyperkalemia: Plan: Patient presents with a K of 6.2. He received temporizing measures in the ED. Etiology likely from his MATTIE, did not get his dose of Bumex this morning. No clear EKG changes reportedly, seen his EKG in the ED, but it is not yet scanned in the chart. - One-time dose of Lokelma - Repeat BMP this afternoon - Lasix as below (5) Acute kidney injury superimposed on CKD: (6) MATTIE (acute kidney injury): Plan: Patient presents with a creatinine of 2.4. It electrolytes were not gathered in the ED. He has received copious amounts of fluid, this will throw off his urine sodium Baseline creatinine around 1.2. Has not been checked in over a year. - Monitor BMP a.m. - Received fluids with relation to his sepsis - Encourage oral hydration - Avoid nephrotoxins as able (7) S/P mitral valve clip implantation: Plan: If blood cultures are positive, will likely need echocardiogram to rule out vegitation. - Noted (8) Atrial fibrillation: Plan: Patient with known history of atrial fibrillation. He is in atrial fibrillation rate controlled during this hospitalization. Home meds include carvedilol, digoxin 250 mcg p.o. daily. Does not appear to be on any anticoagulation. - Continue carvedilol - Will further follow-up with his spouse regarding anticoagulation (9) DM type 2 (diabetes mellitus, type 2): Plan: Patient with longstanding history of diabetes. Home meds include Jardiance, Basaglar 30 units subcu twice daily. Does not take mealtime insulin. Complicated by diabetic polyneuropathy and multiple amputations to his lower extremities. He is on capsaicin cream and gabapentin 300 mg twice daily. Previously pregabalin, not recently filled. Blood glucoses were less than 200 on arrival. And he is not eating reliably. - Will start on sliding scale insulin for tonight - Consider resuming back on long-acting insulin in the morning - A1c added to morning labs - Carb controlled diet - Holding Jardiance as above (10) Cor pulmonale: Plan: Patient with history of right-sided heart failure. Last echo in May 2022. EF 55 to 60%. RV enlargement. He is on Bumex 2 mg daily. Did not take on day of admission. Has gotten a lot of fluid so far this admission. He is coughing up quite a bit of sputum. His lungs sound coarse. - IV Lasix x 1 now - Resume home Bumex in the morning - Avoid further fluids right now - Daily weights, strict I/O - Holding Jardiance as above (11) NOEL on CPAP: Plan: Okay to use home CPAP (12) Prostate cancer: Plan: Noted. Not on any current treatments. Plan In summary this is an 80-year-old male with a past medical history of T2DM, HTN, CKD, cor pulmonale, NOEL on CPAP, atrial fibrillation who presents with sepsis likely secondary to either UTI or right lower extremity cellulitis. He presented initially after feeling unwell and having a ground-level fall at his home. He was on the ground for several hours prior to coming into the hospital. No signs of traumatic rhabdo. His case was discussed with Dr. Moncada in the ED, and I have decided to admit him to the inpatient service for ongoing management of his sepsis. He is getting antibiotics for coverage of both his urinary tract infection as well as his cellulitis. Pending blood cultures. Also managing attendant hyperkalemia and MATTIE. Patient does endorse that he is DNR/DNI. He will need a POLST completed prior to discharge from this hospitalization as he does not have one previously. His surrogate decision maker is his spouse, Megan. Lab Results 03/01/25 08:44 03/01/25 08:44 Diagnostic Imaging Results Diagnostic Imaging Results: positive Read independently Diagnostic Imaging Results Comments: Chest x-ray from this afternoon, pending formal read, there is evidence of increased interstitial opacities throughout. Some cephalization of his pulmonary vasculature. No fractures appreciated. No effusions. EKG Results EKG Interpreted Independently: Yes EKG Comparison: Unchanged from prior EKG
[2025-03-01] MEDS: INSULIN REGULAR, HUMAN 300 UNIT/3 ML PEN IVP STA (13:02)
[2025-03-01] MEDS: DEXTROSE 50% ABBOJECT 25 GM/50 ML SYRINGE IVP STA (13:09)
[2025-03-01] MEDS: SODIUM ZIRCONIUM CYCLOSILICATE 5 GM PACKET PO ONE (13:11)
[2025-03-01] MEDS: VANCOMYCIN INJ 2 GM in SODIUM CHLORIDE 0.9% 500 ML IV STA (13:15)
--- NOTE | 2025-03-01 14:13 | PHARMACY PROGRESS NOTE ---
Best Possible Medication History Admit Date and Time: 03/01/25 [id number] Home Medications Medication Instructions Recorded Confirmed Type pregabalin 75 mg capsule (Lyrica) 150 mg PO HS 9 03/01/25 History carvedilol 25 mg tablet (Coreg) 25 mg PO BIDWM 3 03/01/25 History insulin glargine 100 unit/mL (3 30 unit subcut BID 11/1803/01/25 History mL) subcutaneous pen (Basaglar KwikPen U-100 Insulin) acetaminophen 500 mg tablet 500 mg PO Q6HR PRN Minor P ain 09/29/22 03/01/25 H istory bumetanide 2 mg tablet 2 mg PO DAILY 09/29/2203/01 History capsaicin 0.025 % topical cream 1 applic topical QID P RN Minor Pain 09/29/22 03/01/25 History digoxin 250 mcg (0.25 mg) tablet 250 mcg PO DAILY 07/1903/01/25 History (Lanoxin) mometasone 220 mcg/actuation(60 2 inh inhalation QPM P RN Shortness 09/29/22 03/01/25 History doses) breath activated powder Of Air/Wheezing inhaler (Asmanex Twisthaler) nystatin-triamcinolone 100,000 1 g topical BID 3 03/01/25 History unit/gram-0.1 % topical ointment aspirin 81 mg tablet,delayed 81 mg PO DAILY 03/01/25 1 05/01/24 History release (Adult Low Dose Aspirin) diclofenac sodium 50 mg 50 mg PO BID 03/01/25 History tablet,delayed release empagliflozin 10 mg tablet 10 mg PO DAILY 03/01/2507/21 History (Jardiance) gabapentin 300 mg capsule 300 mg PO BID 03/01/2503/01 History oxycodone-acetaminophen 7.5 mg-325 1 tab PO Q4H PRN pa in 03/01/25 03/01/25 History mg tablet (Endocet) pregabalin 75 mg capsule 75 mg PO DAILY 03/01/2507/21 History Processed by: Pharmacy Medications reviewed in ED?: Yes Medication History completed: Yes Patient Interview: Pt unable to participate Secondary Source(s): Written medication list and Spouse/Significant other [facility] Statement: As the person ultimately responsible for medication therapy, providers are able to order a medication from an existing home medication list in [facility] via the "Reconcile Routine" prior to Confirmation of that medication by production support supervisor. Such practice is discouraged except when the physician, in their clinical judgment, deems that a medical need exists for a medication without regard to previous use.
[2025-03-01] MEDS ORDERED: CAPSAICIN 0.025% CREAM 60 GM TUBE TOP PRN (14:19)
--- NOTE | 2025-03-01 14:21 | PHARMACY PROGRESS NOTE ---
Vancomycin Therapy Monitoring Patient Information Vancomycin Pt Height (inches): 72 Vancomycin Patient Weight (kg): 98 Vanco Rx Serum Creatinine (mg/dL): 2.4 Vancomycin Therapy BUN (mg/dL): 42 Vancomycin Therapy Calculated Creatinine Cl (ml/min): 33 Concurrent Antibiotics: CEFTRIAXONE Assessment of Current Therapy Vancomycin Loading Dose (GM, if applicable): 2G IN ED Current Vancomycin Maintenance Regimen (if applicable): 1G Q24H Estimated Cmax (Peak, mcg/ml): 29.2 Estimated Cmin (Trough, mcg/ml): 19.2 Estimated AUC (mcg*hr/ml): 573 Areas for additonal monitoring Areas for additional monitoring: Therapy de-escalation based on culture results
[2025-03-01] MEDS: guaiFENesin 100 MG/5 ML UDC PO SCH (15:10)
[2025-03-01] MEDS: FUROSEMIDE 40 MG/4 ML VIAL IVP ONE ×2 (15:10→17:09)
[2025-03-01 15:54] VITALS: BP 121/56; O2SAT 93
[2025-03-01] MEDS: oxyCODONE 5 MG TABLET PO PRN (16:32)
[2025-03-01] MEDS: SODIUM CHLORIDE FLUSH 0.9% 10 ML SYRINGE IVP SCH (16:33)
[2025-03-01] MEDS: ACETAMINOPHEN 325 MG TABLET PO PRN (16:33)
[2025-03-01 16:40] LABS: BUN - BLOOD UREA NITROGEN 39.0 mg/dL (6-20); CARBON DIOXIDE - CO2 23.0 mmol/L (21-32); CREATININE 1.8 mg/dL (0.6-1.3); GFR - MDRD 36.0 (>89)
[2025-03-01] MEDS ORDERED: FUROSEMIDE 40 MG/4 ML VIAL ONE (17:08)
--- NOTE | 2025-03-01 17:42 | XRAY Report ---
PROCEDURE: XR Chest 1V INDICATIONS: Shortness of breath TECHNIQUE: One view of the chest was acquired. COMPARISON: 06/04/23. FINDINGS: Surgical changes and devices: None. Lungs and pleura: Peribronchial cuffing with increased interstitial markings. No effusions or pneumothorax. Mediastinum: Cardiomegaly. Normal contour otherwise. Bones and chest wall: No suspicious bony lesions. Overlying soft tissues appear unremarkable. IMPRESSION: Peribronchial cuffing with increased interstitial markings, suggestive of mild to moderate pulmonary edema. Reviewed by: Ben Sanches MD on 03/01/2025 5:39 PM PST Approved by: Ben Sanches MD on 03/01/2025 5:39 PM [facility] Station ID: [id number]
[2025-03-01 17:47] LABS: ABG BASE EXCESS -10.1 mmol/L (-2.0-3.0); ABG HCO3 17.1 mmol/L (22.0-26.0); ABG OXYGEN SATURATION 100 % (95-98); ABG PCO2 37 mmHg (34-45); ABG PH 7.27 (7.35-7.45); ABG PO2 104 mmHg (83-108); ABG TCO2 18.2 mmol/L (21.0-29.0)
--- NOTE | 2025-03-01 17:49 | XRAY Report ---
PROCEDURE: XR Chest 1V INDICATIONS: Sepsis TECHNIQUE: Single frontal view of the chest was obtained COMPARISON: None FINDINGS: Instrumentation: None Heart size, mediastinum and pulmonary vasculature: Heart size is enlarged. Mitral annular clip noted. Moderate vascular congestion. Pleural spaces are clear. Lungs and pleural spaces: No pneumothorax or pleural effusion. Osseous structures: Unremarkable IMPRESSION: Cardiomegaly and moderate vascular congestion Reviewed by: Addy Richardson MD on 03/01/2025 4:46 PM [facility] Approved by: Addy Richardson MD on 03/01/2025 4:46 PM [facility] Station ID: [id number]
[2025-03-01] MEDS: LORazepam 2 MG/ML VIAL IVP PRN (18:18)
[2025-03-01 18:23] VITALS: TEMP 98.2
[2025-03-01] MEDS: INSULIN LISPRO 300 UNIT/3 ML PEN SUBQ SCH (18:23)
--- NOTE | 2025-03-01 19:17 | PROVIDER PROGRESS NOTE ---
Progress Note Progress Note Progress Note: I was called back to bedside at 1700. The patient was an extremis. He was agitated. Trying to get out of bed. He was satting in the 70%'s on pulse ox. His pleth was intermittently good but his saturations did not improve. He has audible rales. He is not redirectable. He is repeatedly trying to get out of bed. The remainder of his vital signs are stable. He is favoring. O: Audible ronchi without wheezing. Gurgling breaths. Not responding to any questioning. Moving all extremities. Repeatedly pulling himself up in bed. Trying to get out of bed Not cyanotic. Abdomen is firm, but non-tender. Pulling oxy mask off of his face A: Patient acutely delirious in the setting of his acute infection. He is febrile. He is getting a dose of Tylenol. He is hypoxemic when his pleth is normalized. Not on oxygen while walking. Started on nasal cannula, respiratory therapy is brought to bedside, and starts him on a OxyMask. His saturations do slow to respond, but are difficult to read given his ear probe and his agitation. Repeatedly agitated, trying to get out of bed. P: Patient is acutely encephalopathic. Suspect delirium in the setting of his infection. No focal deficits. Less likely stroke. Discussed with his , he does not drink. Has not drank for several years. No other substances. Less likely cardiac, regular rate, tachycardic. He is hypoxemic, could be contributing. Less likely hypercapnic. ABG with RT reveals metabolic acidosis, consistent with acute infection. Satting 100% on ABG He is agitated getting out of bed, ordering Zyprexa ODT Pulling off his oxy mask, continue monitoring saturations Chest x-ray with fluid overload Given additional dose of IV Lasix 40 mg Bladder scan reveals 600 mL in his bladder, one-time straight cath with 585 out. Additional one-time dose of IV lorazepam available for repeated disruption of care Will continue to monitor saturations Continue antibiotics per primary plan Monitor labs in AM. Called his and discussed with her risk of acute decompensation, agitation, he is DNR/DNI. She is obviously worried about him, reassured that we are working on her plan. Reinforced that we would call if any changes to his status. Time out of room 1755 55 minutes of critical care time, managing acute hypoxemic respiratory failure, making decisions about possible ventilation and intubation. Discussions with his family about goals of care. Giving parenteral controlled substances.
--- NOTE | 2025-03-01 21:53 | Discharge Summary ---
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 He was on the ground for several hours prior to his , EMS. Patient's shares that he was feeling unwell as of last night. No particular complaints, but just felt malaise. He did not eat dinner last night. She tried to feed him soup and he refused. He then later in the night slipped out of his recliner and remained on the ground for the remainder of the night. She is unclear what precipitated his fall. Patient is unclear on what precipitated his fall. He denies any fevers or chills. Denies chest pain, nausea, vomiting. Denies any abdominal pain. He is reporting some troubles taking deep breaths. On arrival to the ED, the patient is in relatively stable condition. He has scan of his hip, head, abdomen and pelvis in the ED which does not reveal any acute fractures. He was found in the ED to have nitrite positive urine, no history of colonization. He also has a inflamed, erythematous, edematous, painful right lower extremity suggestive of nonpurulent cellulitis. His white count on arrival is 38K and left shifted. Hemoglobin 8.7. PLT 225 there was no imaging of the right lower leg. Remainder of his labs reveal MATTIE, baseline creatinine around 1.3, up to 2.4. Hyperkalemia 6.2. Sodium 130. Blood glucose remarkably normal 160. HOSPITAL COURSE Hospital Course: Mr. El was admitted with severe sepsis likely secondary to urinary source. Several hours after admission he had an episode of agitation with desaturation. On exam he had audible rails. He was not wheezing. He was febrile he was delirious. He was started on oxygen via mask. This was thought to be delirium secondary to his sepsis. Given his agitation he was given 1 dose of Zyprexa. He was also given 40 mg of Lasix IV as his chest x-ray did show fluid overload. He was able to become more calm but then had a respiratory rate which was quite low. He was DNR/DNI. I started the patient on BiPAP for maximal respiratory support and had the nurse call his regarding his change in status. At that point I could not palpate a femoral pulse therefore used the Doppler to try to find a femoral pulse. There was no femoral pulse and the patient had no heart sounds upon auscultation. He was pronounced on 03/01/2025 at 2109. Family was called to the bedside. ALLERGIES Allergies Allergy/AdvReac Type Severity Reaction Status Date / Time codeine AdvReac Intermediate Hallucinati Verified 03/01/25 09:20 ons guaiacol AdvReac Intermediate Hallucinati Verified 03/01/25 09:20 ons guaifenesin AdvReac Intermediate Hallucinati Verified 03/01/25 09:20 ons promethazine (From Phenergan) AdvReac Intermediate Hallucinati Verified 03/01/25 09:20 ons MEDICATIONS Ambulatory Orders Medication Instructions Recorded Confirmed pregabalin 75 mg capsule (Lyrica) 150 mg PO HS 9 03/01/25 carvedilol 25 mg tablet (Coreg) 25 mg PO BIDWM 3 03/01/25 insulin glargine 100 unit/mL (3 30 unit subcut BID 11/1803/01/25 mL) subcutaneous pen (Basaglar KwikPen U-100 Insulin) acetaminophen 500 mg tablet 500 mg PO Q6HR PRN Minor P ain 09/29/22 03/01/25 bumetanide 2 mg tablet 2 mg PO DAILY 09/29/2203/01 capsaicin 0.025 % topical cream 1 applic topical QID P RN Minor Pain 09/29/22 03/01/25 digoxin 250 mcg (0.25 mg) tablet 250 mcg PO DAILY 06/0 07/1903/01/25 (Lanoxin) mometasone 220 mcg/actuation(60 2 inh inhalation QPM P RN Shortness 09/29/22 03/01/25 doses) breath activated powder Of Air/Wheezing inhaler (Asmanex Twisthaler) nystatin-triamcinolone 100,000 1 g topical BID 3 03/01/25 unit/gram-0.1 % topical ointment aspirin 81 mg tablet,delayed 81 mg PO DAILY 03/01/25 1 05/01/24 release (Adult Low Dose Aspirin) diclofenac sodium 50 mg 50 mg PO BID 03/01/25 tablet,delayed release empagliflozin 10 mg tablet 10 mg PO DAILY 03/01/2507/21 (Jardiance) gabapentin 300 mg capsule 300 mg PO BID 03/01/2503/01 oxycodone-acetaminophen 7.5 mg-325 1 tab PO Q4H PRN pa in 03/01/25 03/01/25 mg tablet (Endocet) pregabalin 75 mg capsule 75 mg PO DAILY 03/01/2507/21 PHYSICAL EXAM AT DISCHARGE Vital Signs: Vital Signs x48h Temp Pulse Resp BP Pulse Ox O2 Flow Rate 03/01/25 18:22 36.8 C 03/01/25 17:35 12 03/01/25 17:00 37 C 110 H 03/01/25 15:51 36.8 C 109 H 24 121/56 L 93 LABS 03/01/25 08:44 03/01/25 16:07 SEPSIS Current Stage of Sepsis: Severe sepsis Possible source of Sepsis: Genitourinary and Skin/soft tissue Sepsis Criteria: Recorded Heart Rate greater than 90 bpm, WBC count greater than 10% bands, WBC count greater than 12,000 or less than 4000 and Metabolic: lactate > 2 mmol/L TIME SPENT Time Spent in Discharge (Minutes): 40 Discharge Plan Discharge Patient Disposition: 20 Plan of Treatment: Discharged to [facility] and remaining belongings sent with Home [employer] Language: Polish Date/Time: 03/01/25 21:09
[2025-03-01] MEDS: HEPARIN 5,000 UNIT/ML VIAL SUBQ SCH (23:49)
[2025-03-02] MEDS ORDERED: BUMETANIDE 1 MG TABLET PO SCH (09:00)
[2025-03-02] MEDS ORDERED: ASPIRIN EC 81 MG TABLET PO SCH (09:00)
[2025-03-02] MEDS ORDERED: DIGOXIN 125 MCG TABLET PO SCH (09:00)
[2025-03-02] MEDS ORDERED: VANCOMYCIN INJ 1 GM in SODIUM CHLORIDE 0.9% 250 ML IV SCH (12:00)
== END 2025-03-01 21:09 | disposition expired | DRG 871 ==
LOC: ED 08:20 → MS2 12:13
PROVIDERS: ADMIT Student in an Organized Health Care Education/Training Program; ATTEND Student in an Organized Health Care Education/Training Program
DX: Z79.84 Long term (current) use of oral hypoglycemic drugs; R65.20 Severe sepsis without septic shock; G93.41 Metabolic encephalopathy; N39.0 Urinary tract infection, site not specified; E86.0 Dehydration; I50.810 Right heart failure, unspecified; Z66 Do not resuscitate; G47.33 Obstructive sleep apnea (adult) (pediatric); F17.210 Nicotine dependence, cigarettes, uncomplicated; Z95.818 Presence of other cardiac implants and grafts; J96.01 Acute respiratory failure with hypoxia; Z89.422 Acquired absence of other left toe(s); I50.9 Heart failure, unspecified; E87.5 Hyperkalemia; E11.9 Type 2 diabetes mellitus without complications; A41.9 Sepsis, unspecified organism; E11.42 Type 2 diabetes mellitus with diabetic polyneuropathy; Z89.421 Acquired absence of other right toe(s); R45.1 Restlessness and agitation; L03.115 Cellulitis of right lower limb; I13.0 Hypertensive heart and chronic kidney disease with heart failure and stage 1 through stage 4 chronic kidney disease, or unspecified chronic kidney disease; Z79.85 Long-term (current) use of injectable non-insulin antidiabetic drugs; J44.9 Chronic obstructive pulmonary disease, unspecified; N30.00 Acute cystitis without hematuria; Z79.01 Long term (current) use of anticoagulants; N18.9 Chronic kidney disease, unspecified; Z79.4 Long term (current) use of insulin; E11.22 Type 2 diabetes mellitus with diabetic chronic kidney disease; I48.91 Unspecified atrial fibrillation; R52 Pain, unspecified; N17.9 Acute kidney failure, unspecified; C61 Malignant neoplasm of prostate; N28.9 Disorder of kidney and ureter, unspecified; Z79.899 Other long term (current) drug therapy; I27.81 Cor pulmonale (chronic); Z91.81 History of falling; L84 Corns and callosities